=== PATIENT | female | born 1930 | race Caucasian/White ===

== ENCOUNTER 2019-02-06 07:52 | Emergency (ER) | payer MEDICARE ==
[~2019-02-06] VITALS: Ht 162.6 cm; Wt 72.6 kg
[~2019-02-06 07:52] MED LIST: ASP81CT PO; ASP81TEC PO; B12; CEPH500C PO; CITA10TA7 PO; CYCL1DRO OU; DIAZ5TAB3 PO; DILACOR PC; DILT180C82 PO; DILT300C PO; DILT300C49 PO; FENTANYL PATCH; FLC150T PO; FNT25TD TD; HYDR-3714 PO; IBUP-1780 PO; LISI20TA PO; LISI40TA PO; LVT.05T PO; METO25TA PO; MTP25TSR PO; NABU750T PO; PHEN100T26 PO; PRM25T PO; TRAM50TA2 PO; VITAMIN D
[2019-02-06] MEDS ORDERED: fentaNYL INJECTION 100 MCG/2 ML AMP IVP STA (08:15)
[2019-02-06 08:22] LABS: BILIRUBIN,URINE NEGATIVE (NEGATIVE); CLARITY,URINE SLIGHTLY CLOUDY; COLOR,URINE YELLOW; GLUCOSE, URINE (UA) NEGATIVE (NEGATIVE); KETONES,URINE 3+ (NEGATIVE); LEUKOCYTE ESTERASE ,URINE 1+ (NEGATIVE); NITRITE,URINE NEGATIVE (NEGATIVE); PH,URINE 6 (5-9); PROTEIN,URINE 2+ (NEGATIVE); UROBILINOGEN,URINE NORMAL (NORMAL)
[2019-02-06 08:24] LABS: BASOPHILS % (AUTO) 0 % (0-10); EOSINOPHILS # (AUTO) 0.2 10^3/uL (0.0-0.3); EOSINOPHILS % (AUTO) 2 % (0-10); HEMATOCRIT 42 % (35-52); HEMOGLOBIN 13.5 G/DL (11.5-16.0); LYMPHOCYTES # (AUTO) 1.9 X 10^3 (1.0-4.0); LYMPHOCYTES % (AUTO) 20 % (12-44); MEAN CORPUSCULAR HEMOGLOBIN 28 PG (25-34); MEAN CORPUSCULAR HGB CONC 32 G/DL (32-36); MEAN CORPUSCULAR VOLUME 86 FL (80-99); MEAN PLATELET VOLUME 10.2 FL (7.4-10.4); MONOCYTES # (AUTO) 1.1 X 10^3 (0.0-1.0); MONOCYTES % (AUTO) 12 % (0-12); NEUTROPHILS # (AUTO) 6.3 X 10^3 (1.8-7.8); NEUTROPHILS % (AUTO) 66 % (42-75); PLATELET COUNT 275 10^3/uL (130-400); RED CELL DISTRIBUTION WIDTH 14.6 % (10.0-14.5); WHITE BLOOD COUNT 9.6 10^3/uL (4.3-11.0)
--- NOTE | 2019-02-06 08:30 | NUR ---
SON IN ROOM TO SEE THE PT.
[2019-02-06 08:31] LABS: INR 1.1 (0.8-1.4); PROTHROMBIN TIME PATIENT 14.3 SEC (12.2-14.7)
--- NOTE | 2019-02-06 08:32 | ED Fall/Injury ---
General Chief Complaint: Trauma-Non Activation Stated Complaint: FALL Nursing Triage Note: ARRIVED VIA EMS FROM HOME. PT STATES SHE FELL AND HIT HER HEAD YESTERDAY AROUND 1600 AND LAYED ON THE FLOOR UNTIL APPX 6 WHEN SHE WAS ABLE TO GET UP AND MAKE IT BACK TO BED. CALLED EMS THIS AM FOR BACK, NECK, AND PELVIC PAIN AND UNABLE TO GET OUT OF BED. Source: patient Exam Limitations: no limitations History of Present Illness Date Seen by Provider: Feb 06, 2019 Time Seen by Provider: 07:59 Initial Comments Here by EMS with report of fall. She reports that she fell yesterday at about 3 PM. She reports lying on the floor until 5 or so and then was able to get back in bed. She is unable to get out of bed this morning so she called EMS. She reports hitting her head and complains of head and neck pain. Also complains of pelvic pain. States that she is actually hurting everywhere. Noted to have a low -grade fever and to be tachycardic. Arrives via EMS with c-collar in place. She is answering questions appropriately and moving all extremities. No obvious bruising reported. No bleeding reported. Denies chest pain or breathing problems. Occurred: yesterday Severity: moderate Injuries/Pain Location: head, neck Context: unknown Loss of Consciousness: no loss of consciousness Modifying Factors: Worse With Movement; Improves With Rest Associated Symptoms (Fall): No Chest Pain; Headache; No Nausea/Vomiting; Neck Pain; No Seizures, No Shortness of Air; Trouble Walking Allergies and Home Medications Allergies Coded Allergies: No Known Drug Allergies (Unverified , 07/23/12) Home Medications Aspirin 81 Mg Tabec, 81 MG PO DAILY, (Reported) Citalopram Hydrobromide 10 Mg Tablet, 10 MG PO DAILY, (Reported) Diltiazem HCl 180 Mg Capsule.er, 360 MG PO DAILY, (Reported) TAKE 2 (180MG) TABS Ibuprofen 800 Mg Tablet, 800 MG PO Q8H PRN for PAIN Prescribed by: CAMPBELL LEMUS on 11/19/15 1030 Levothyroxine Sodium 50 Mcg Tablet, 50 MCG PO DAILY, (Reported) Lisinopril 40 Mg Tablet, 40 MG PO DAILY, (Reported) Nabumetone 750 Mg Tablet, 750 MG PO BID, (Reported) Tramadol HCl 50 Mg Tablet, 50 MG PO Q4H PRN for PAIN Prescribed by: CAMPBELL LEMUS on 11/19/15 1030 Patient Home Medication List Home Medication List Reviewed: Yes Review of Systems Review of Systems Constitutional: see HPI; No chills, No fever Eyes: No Symptoms Reported Ears, Nose, Mouth, Throat: no symptoms reported Respiratory: No cough, No short of breath Cardiovascular: No chest pain; other (tachycardia noted) Gastrointestinal: No abdominal pain, No nausea, No vomiting Genitourinary: no symptoms reported Musculoskeletal: back pain, joint pain, muscle pain, neck pain Skin: No change in color, No lesions Psychiatric/Neurological: Anxiety, Headache, Weakness Past Mknebqk-Bzjwed-Mycvzk Hx Past Med/Social Hx: Reviewed Nursing Past Med/Soc Hx Patient Social History Alcohol Use: Denies Use Recreational Drug Use: No Smoking Status: Never a Smoker Recent Foreign Travel: No Contact w/Someone Who Travel: No Recent Infectious Disease Expo: No Immunizations Up To Date Date of Pneumonia Vaccine: Aug 28, 1999 Date of Influenza Vaccine: Aug 28, 2015 Past Medical History Surgeries: Yes Gallbladder, Hysterectomy, Orthopedic Respiratory: Yes Sleep Apnea Cardiac: Yes Hypertension, Irregular Heartbeat Gall Bladder Disease Musculoskeletal: Yes Arthritis, Chronic Back Pain Endocrine: Yes Hypothyroidsim Psychosocial: Yes Anxiety Family Medical History Patient reports no known family medical history. Physical Exam Vital Signs Vital Signs - First Documented 02/06/19 07:52 Temp 99.2 Pulse 109 Resp 18 B/P (MAP) 171/89 (116) Pulse Ox 93 O2 Delivery Room Air Capillary Refill : Less Than 3 Seconds Height, Weight, BMI Height: 5'4.00" Weight: 160lbs. oz. 72.165600mm; BMI Method:Estimated General Appearance: WD/WN, no apparent distress HEENT: PERRL/EOMI, pharynx normal Neck: No lymphadenopathy (R), No lymphadenopathy (L); tender midline, other (c- collar remains in place) Cardiovascular: no murmur, tachycardia Respiratory: lungs clear, normal breath sounds, no respiratory distress, no accessory muscle use Gastrointestinal: non tender, soft Back: normal inspection, no CVA tenderness, no vertebral tenderness Extremities: non-tender, normal inspection Neurologic/Psychiatric: alert, oriented x 3 Skin: normal color, warm/dry [place] Coma Score Best Eye Response: (4) Open Spontaneously Best Verbal Response: (5) Oriented Best Motor Response: (6) Obeys Commands Progress/Results/Core Measures Results/Orders Lab Results Laboratory Tests Test 02/06/19 07:55 02/06/19 08:06 02/06/19 08:13 Range/Units White Blood Count 9.6 4.3-11.0 10^3/uL Red Blood Count 4.88 4.35-5.85 10^6/uL Hemoglobin 13.5 11.5-16.0 G/DL Hematocrit 42 35-52 % Mean Corpuscular Volume 86 80-99 FL Mean Corpuscular Hemoglobin 28 25-34 PG Mean Corpuscular Hemoglobin Concent 32 32-36 G/DL Red Cell Distribution Width 14.6 H 10.0-14.5 % Platelet Count 275 130-400 10^3/uL Mean Platelet Volume 10.2 7.4-10.4 FL Neutrophils (%) (Auto) 66 42-75 % Lymphocytes (%) (Auto) 20 12-44 % Monocytes (%) (Auto) 12 0-12 % Eosinophils (%) (Auto) 2 0-10 % Basophils (%) (Auto) 0 0-10 % Neutrophils # (Auto) 6.3 1.8-7.8 X 10^3 Lymphocytes # (Auto) 1.9 1.0-4.0 X 10^3 Monocytes # (Auto) 1.1 H 0.0-1.0 X 10^3 Eosinophils # (Auto) 0.2 0.0-0.3 10^3/uL Basophils # (Auto) 0.0 0.0-0.1 10^3/uL Prothrombin Time 14.3 12.2-14.7 SEC INR Comment 1.1 0.8-1.4 Activated Partial Thromboplast Time 34 24-35 SEC Sodium Level 140 135-145 MMOL/L Potassium Level 3.4 L 3.6-5.0 MMOL/L Chloride Level 98 98-107 MMOL/L Carbon Dioxide Level 27 21-32 MMOL/L Anion Gap 15 H 5-14 MMOL/L Blood Urea Nitrogen 10 7-18 MG/DL Creatinine 0.64 0.60-1.30 MG/DL Estimat Glomerular Filtration Rate > 60 BUN/Creatinine Ratio 16 Glucose Level 124 H 70-105 MG/DL Calcium Level 9.5 8.5-10.1 MG/DL Corrected Calcium 9.6 8.5-10.1 MG/DL Total Bilirubin 0.6 0.1-1.0 MG/DL Aspartate Amino Transf (AST/SGOT) 21 5-34 U/L Alanine Aminotransferase (ALT/SGPT) 17 0-55 U/L Alkaline Phosphatase 74 40-136 U/L Total Creatine Kinase 78 29-168 U/L Troponin I < 0.028 <0.028 NG/ML C-Reactive Protein High Sensitivity 10.23 H 0.00-0.50 MG/DL Total Protein 8.0 6.4-8.2 GM/DL Albumin 3.9 3.2-4.5 GM/DL Urine Color YELLOW Urine Clarity SLIGHTLY CLOUDY Urine pH 6 5-9 Urine Specific [place] 1.020 1.016-1.022 Urine Protein 2+ H NEGATIVE Urine Glucose (UA) NEGATIVE NEGATIVE Urine Ketones 3+ H NEGATIVE Urine Nitrite NEGATIVE NEGATIVE Urine Bilirubin NEGATIVE NEGATIVE Urine Urobilinogen NORMAL NORMAL MG/DL Urine Leukocyte Esterase 1+ H NEGATIVE Urine RBC (Auto) 1+ H NEGATIVE Urine RBC RARE /HPF Urine WBC NONE /HPF Urine Squamous Epithelial Cells RARE /HPF Urine Crystals NONE /LPF Urine Bacteria NEGATIVE /HPF Urine Casts NONE /LPF Urine Mucus NEGATIVE /LPF Urine Culture Indicated NO Lactic Acid Level 0.74 0.50-2.00 MMOL/L Micro Results Microbiology 02/06/19 Influenza Types A,B Antigen ([facility]) - Final, Complete My Orders Orders - SALOME JOSE MD Ekg Tracing (02/06/19 08:02) Ct Head/Cervical Spine Wo (02/06/19 08:02) Chest 1 View, Ap/Pa Only (02/06/19 08:02) Pelvis (02/06/19 08:02) Cbc With Automated Diff (02/06/19 08:02) Comprehensive Metabolic Panel (02/06/19 08:02) Hs C Reactive Protein (02/06/19 08:02) Lactic Acid Analyzer (02/06/19 08:02) Protime With Inr (02/06/19 08:02) Partial Thromboplastin Time (02/06/19 08:02) Troponin I (02/06/19 08:02) Ua Culture If Indicated (02/06/19 08:02) Blood Culture (02/06/19 08:02) Influenza A And B Antigens (02/06/19 08:02) Catheter(Urinary) Insert & Ass 03,15 (02/06/19 08:02) Creatine Kinase (02/06/19 08:02) Fentanyl Injection (Sublimaze Injection (02/06/19 08:15) Ketorolac Injection (Toradol Injection) (02/06/19 09:15) Saline Lock/Iv-Start (02/06/19 10:35) Ns Iv 1000 Ml (Sodium Chloride 0.9%) (02/06/19 10:35) Vital Signs/I&O 02/06/19 07:52 Temp 99.2 Pulse 109 Resp 18 B/P (MAP) 171/89 (116) Pulse Ox 93 O2 Delivery Room Air Blood Pressure Mean: 116 Progress Progress Note : Progress Note Seen and evaluated. IV by EMS with normal saline 1 L bolus running which will be completed. Labs and UA ordered. Patient in c-collar. CT head and neck ordered. X-ray of chest and pelvis ordered. We will go ahead get for catheter to get urine and because of her stated weakness and pain. 0825: Son arrives and states that he has been out of town and she seems to do this every time he is out of town. Apparently the story changed several times as to what happened so he is unsure if she actually fell orifices in response to him being out of town. Fever was noted so we will check for illness related issues. Monitor patient. 0912: CT negative. C-collar removed. Toradol 30 mg IV. Monitor patient. 1235: Discharge leg due to critical patient in the emergency department. No acute findings. I did talk to her son. He will get her home. Discharged home with return precautions. Patient family verbalized understanding instructions and agreement with plan. Initial ECG Impression Date: Feb 06, 2019 Initial ECG Rate: 110 Comment Sinus rhythm with right bundle branch block. Left axis deviation. No evidence of ST elevation CT. Similar to 08/06/14. Interpreted by me. Diagnostic Imaging Diagonstic Imaging: CT Plain Films/CT/US/NM/MRI: c-spine, head Comments Draft Date of Exam:02/06/19 CT HEAD/CERVICAL SPINE WO PROCEDURE: CT head and CT cervical spine without contrast. TECHNIQUE: Multiple contiguous axial images were obtained through the brain and cervical spine without the use of intravenous contrast. Sagittal and coronal reformations through the cervical spine were then performed. INDICATION: Fall. Head injury. Neck pain. COMPARISON: CT head without contrast 07/23/2012. FINDINGS: CT head: Advanced generalized cerebral and cerebellar parenchymal volume loss. Advanced leukoaraiosis. No CT evidence of a territorial infarction. No intracranial hemorrhage, mass effect, hydrocephalus or extra-axial fluid collections. Intracranial vascular calcifications. The paranasal sinuses are clear. Scant fluid in the left mastoid. Osseous structures are intact. CT cervical spine: Straightening of the normal cervical lordosis. Grade 1 anterolisthesis of C2 on C3 and C6 on C7. Advanced degenerative changes at the atlantoaxial articulation. Vertebral body heights preserved. No fractures. Broad-based disc bulge and ligamentous hypertrophy appear result in at least moderate spinal canal narrowing at C5-C6. There is diffuse mild and moderate neural foraminal narrowing due to facet arthropathy and uncovertebral joint hypertrophy. Advanced atherosclerotic calcifications including the carotid bifurcations. IMPRESSION: 1. No acute intracranial or cervical spine CT findings. 2. Advanced generalized cerebral and cerebellar parenchymal volume loss and leukoaraiosis. 3. 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 These appear to result in at least moderate spinal canal narrowing at C5-C6. This could be better evaluated with CT myelogram or MRI if clinically warranted. Dictated on workstation # [id number] Dict: 02/06/19 0846 Trans: 02/06/19 0902 [facility] [id number] Interpreted by: YOHANA MCCORMACK MD Electronically signed by: [facility]: Xray Plain Films/CT/US/NM/MRI: chest Comments [facility] [place], [place] NAME[facility] [id number] PT STATUS: REG ER : 1930 PHYSICIAN: SALOME JOSE MD ADMIT DATE: 02/06/19/ER Draft Date of Exam:02/06/19 CHEST 1 VIEW, AP/PA ONLY INDICATION: Fall. FINDINGS: Comparison made with prior examination from 04/22/14. There's cardiomegaly. There is some venous congestion. There is no pleural effusion, pneumothorax or pneumonia. The mediastinum is unremarkable. IMPRESSION: Cardiomegaly and mild central pulmonary venous congestion. Dictated on workstation # [id number] Dict: 02/06/19 0900 Trans: 02/06/19 0905 [facility] [id number] Interpreted by: PABLO ALVAREZ MD Electronically signed by: [facility] Imaging: Xray Plain Films/CT/US/NM/MRI: pelvis Comments No acute findings. Hardware good position. Focused Exam Lactate Level 02/06/19 08:13: Lactic Acid Level 0.74 Lactic Acid Level Laboratory Tests Test 02/06/19 08:13 Lactic Acid Level 0.74 MMOL/L (0.50-2.00) Departure Impression Primary Impression: Fall Qualified Codes: W19.XXXA - Unspecified fall, initial encounter Additional Impressions: Headache Qualified Codes: R51 - Headache Hip pain, bilateral Disposition: 01 HOME, SELF-CARE Condition: Stable Departure-Patient Inst. Decision time for Depature: 12:42 Referrals: SANDRA MANLEY DO (PCP/Family) Primary Care Physician Patient Instructions: Minor Head Injury (DC), Preventing Falls Add. Discharge Instructions: All discharge instructions reviewed with patient and/or family. Voiced understanding. Drink plenty of fluids and eat a normal diet. Follow up with your Dr. in one to 2 days for recheck. Return for worse pain, fever, vomiting, weakness, breathing problems or other concerns as needed. SALOME JOSE MD Feb 06, 2019 08:32
[2019-02-06 08:37] LABS: ALANINE AMINOTRANSFERASE 17 U/L (0-55); ALBUMIN 3.9 GM/DL (3.2-4.5); ALKALINE PHOSPHATASE 74 U/L (40-136); BILIRUBIN,TOTAL 0.6 MG/DL (0.1-1.0); BUN/CREATININE RATIO 16; CALCIUM 9.5 MG/DL (8.5-10.1); CARBON DIOXIDE 27 MMOL/L (21-32); CHLORIDE 98 MMOL/L (98-107); CREATINE KINASE 78 U/L (29-168); CREATININE SERUM 0.64 MG/DL (0.60-1.30); GFR ESTIMATED > 60; GLUCOSE 124 MG/DL (70-105); POTASSIUM 3.4 MMOL/L (3.6-5.0); SODIUM 140 MMOL/L (135-145)
--- NOTE | 2019-02-06 08:40 | NUR ---
IN ROOM TALKING TO PT AT THIS TIME.
[2019-02-06 08:58] LABS: BACTERIA,URINE NEGATIVE /HPF; RBC,URINE RARE /HPF; SQUAMOUS EPITHELIAL CELL,UR RARE /HPF
--- NOTE | 2019-02-06 09:03 | Diagnostic Imaging Report ---
PROCEDURE: CT head and CT cervical spine without contrast. TECHNIQUE: Multiple contiguous axial images were obtained through the brain and cervical spine without the use of intravenous contrast. Sagittal and coronal reformations through the cervical spine were then performed. INDICATION: Fall. Head injury. Neck pain. COMPARISON: CT head without contrast 07/23/2012. FINDINGS: CT head: Advanced generalized cerebral and cerebellar parenchymal volume loss. Advanced leukoaraiosis. No CT evidence of a territorial infarction. No intracranial hemorrhage, mass effect, hydrocephalus or extra-axial fluid collections. Intracranial vascular calcifications. The paranasal sinuses are clear. Scant fluid in the left mastoid. Osseous structures are intact. CT cervical spine: Straightening of the normal cervical lordosis. Grade 1 anterolisthesis of C2 on C3 and C6 on C7. Advanced degenerative changes at the atlantoaxial articulation. Vertebral body heights preserved. No fractures. Broad-based disc bulge and ligamentous hypertrophy appear result in at least moderate spinal canal narrowing at C5-C6. There is diffuse mild and moderate neural foraminal narrowing due to facet arthropathy and uncovertebral joint hypertrophy. Advanced atherosclerotic calcifications including the carotid bifurcations. IMPRESSION: 1. No acute intracranial or cervical spine CT findings. 2. Advanced generalized cerebral and cerebellar parenchymal volume loss and leukoaraiosis. 3. 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 These appear to result in at least moderate spinal canal narrowing at C5-C6. This could be better evaluated with CT myelogram or MRI if clinically warranted. Dictated by: Dictated on workstation # [id number]
--- NOTE | 2019-02-06 09:06 | Diagnostic Imaging Report ---
INDICATION: Fall. FINDINGS: Comparison made with prior examination from 04/22/14. There's cardiomegaly. There is some venous congestion. There is no pleural effusion, pneumothorax or pneumonia. The mediastinum is unremarkable. IMPRESSION: Cardiomegaly and mild central pulmonary venous congestion. Dictated by: Dictated on workstation # [id number]
--- NOTE | 2019-02-06 09:14 | NUR ---
IN TALKING TO PT AND SON AT THIS TIME
[2019-02-06] MEDS ORDERED: KETOROLAC 30 MG/ML VIAL IVP STA (09:15)
--- NOTE | 2019-02-06 10:00 | NUR ---
CANDACE PATRICIA HELPING WITH CARE OF THIS PT DUE TO AN EMERGENT PT IN THE ER.
[2019-02-06] MEDS ORDERED: NS IV 1000 ML 1,000 ML IV SCH (10:35)
--- NOTE | 2019-02-06 11:55 | NUR ---
PT UPSET ABOUT NOT BEING ABLE TO LEAVE. PT NOTIFIED OF AN EMERGENT PT THAT WAS LIFE OR AND WAS BUSY. PT STATES SHE DOES NOT BELIEVE ME AND SHE IS NEVER COMING BACK.
[2019-02-06 12:52] VITALS: BP 78/85
--- NOTE | 2019-02-07 08:14 | Diagnostic Imaging Report ---
Indication: Pain after fall. Comparison: 04/19/2013. 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 No displaced fracture. No diastases of the symphysis pubis or SI joints. Degenerative disc disease in lumbar spine is noted. Impression: No acute fracture or traumatic diastases within the pelvis. Dictated by: Dictated on workstation # [id number]
== END 2019-02-06 12:58 | disposition home or self-care (01) ==
LOC: EDUNIT# 07:52 → ER 07:54
DX: R51 Headache (principal); M25.551 Pain in right hip; M25.552 Pain in left hip; G47.30 Sleep apnea, unspecified; I10 Essential (primary) hypertension; E03.9 Hypothyroidism, unspecified; F41.9 Anxiety disorder, unspecified; R40.2142 Coma scale, eyes open, spontaneous, at arrival to emergency department; R40.2252 Coma scale, best verbal response, oriented, at arrival to emergency department; R40.2362 Coma scale, best motor response, obeys commands, at arrival to emergency department; Z98.890 Other specified postprocedural states; Z79.82 Long term (current) use of aspirin; Z90.710 Acquired absence of both cervix and uterus; W01.198A Fall on same level from slipping, tripping and stumbling with subsequent striking against other object, initial encounter
CPT/HCPCS: 36415; 70450; 71045; 72125; 72170; 80053; 81000; 82550; 83605; 84484; 85025; 85610; 85730; 86141; 87040; 87804; 93005

== ENCOUNTER 2019-05-31 17:09 | Emergency (ER) | payer MEDICARE ==
[~2019-05-31] VITALS: Ht 162.6 cm; Wt 72.6 kg
[2019-05-31] MEDS ORDERED: ETOMIDATE IV SOLN 20 MG/10 ML VIAL IV ONE (17:11)
[2019-05-31] MEDS ORDERED: SUCCINYLCHOLINE INJ 100 MG/5 ML SYR INJ ONE (17:11)
--- OUTSIDE RECORDS SUMMARY | 2019-05-31 17:14 | XMS REPORT | Continuity of Care Document ---
Author Organization Unknown Address Unknown Allergies Active Description Code Type Severity Reaction Onset Reported/Identified Relationship to Patient Clinical Status Yes No Known Drug Allergies [id number] Drug Allergy Unknown N/A 07/23/2012 Medications There is no data. Problems Date Dx Coded Attending Type Code Diagnosis Diagnosed By 07/23/2012 Ot 401.9 HYPERTENSION NOS 07/23/2012 Ot 781.2 ABNORMALITY OF GAIT 07/23/2012 Ot 784.0 HEADACHE 07/23/2012 Ot V58.69 OTH MED,LT,CURRENT USE 04/11/2014 SANDRA MANLEY DO Ot 338.29 OTHER CHRONIC PAIN 04/11/2014 SANDRA MANLEY DO Ot 401.9 HYPERTENSION NOS 04/11/2014 SANDRA MANLEY DO Ot 426.4 RT BUNDLE BRANCH BLOCK 04/11/2014 SANDRA MANLEY DO Ot 427.89 CARDIAC DYSRHYTHMIAS NEC 04/11/2014 SANDRA MANLEY DO Ot 433.10 CAROTID ARTERY OCCLUSION W O CEREBRAL IN 04/11/2014 SANDRA MANLEY DO Ot 715.90 OSTEOARTHROS NOS-UNSPEC 04/11/2014 SANDRA MANLEY DO Ot 719.07 JOINT EFFUSION-ANKLE 04/11/2014 SANDRA MANLEY DO Ot 723.1 CERVICALGIA 04/11/2014 SANDRA MANLEY DO Ot 780.2 SYNCOPE AND COLLAPSE 04/11/2014 SANDRA MANLEY DO Ot 780.4 DIZZINESS AND GIDDINESS 04/22/2014 ASHWINI BENITEZ DO Ot 401.9 HYPERTENSION NOS 08/06/2014 BRIJESH IRVIN Ot 401.9 HYPERTENSION NOS 08/06/2014 BRIJESH IRVIN Ot 599.0 URIN TRACT INFECTION NOS 08/06/2014 BRIJESH IRVIN Ot V58.69 OTH MED,LT,CURRENT USE 11/12/2015 Ot 733.90 11/12/2015 Ot 401.9 11/12/2015 Ot 780.79 11/12/2015 Ot V58.66 11/12/2015 Ot V58.69 11/12/2015 SCARLET FITZPATRICK DO Latha Ot 729.5 11/12/2015 MANLEY DO SANDRA Slade Ot 715.96 11/12/2015 MANLEY DO SANDRA Slade Ot 737.30 11/12/2015 MANLEY DO SANDRA Slade Ot V43.64 11/12/2015 MANLEY SANDRA Slade Ot V43.65 11/12/2015 MANLEY SANDRA Slade Ot 729.5 11/12/2015 Ot 733.90 11/12/2015 Ot 401.9 11/12/2015 Ot 780.79 11/12/2015 Ot V58.66 11/12/2015 Ot V58.69 11/12/2015 SCARLET FITZPATRICK DO Latha Ot 729.5 11/12/2015 MANLEY SANDRA Slade Ot 715.96 11/12/2015 VINEET HOLT SANDRA Slade Ot 737.30 11/12/2015 MANLEYLEONARD HOLT SANDRA Slade Ot V43.64 11/12/2015 MANLEY DO SANDRA Slade Ot V43.65 11/12/2015 MANLEY DO SANDRA Slade Ot 729.5 11/19/2015 Ot 401.9 11/19/2015 Ot 780.79 11/19/2015 Ot V58.66 11/19/2015 Ot V58.69 11/19/2015 SCARLET FITZPATRICK DO Ot 729.5 11/19/2015 MANLEY DO, SANDRA Slade Ot 715.96 11/19/2015 VINEET HOLT SANDRA Slade Ot 737.30 11/19/2015 MANLEY DO SANDRA Slade Ot V43.64 11/19/2015 MANLEY DO SANDRA Slade Ot V43.65 11/19/2015 MANLEY DO, SANDRA Slade Ot 729.5 11/19/2015 JOANNA KELLY MD Ot G56.02 11/19/2015 JOANNA KELLY MD Ot Z01.818 11/19/2015 JOANNA KELLY MD Ot Z11.2 11/19/2015 JOANNA KELLY MD Ot E03.9 HYPOTHYROIDISM, UNSPECIFIED 11/19/2015 JOANNA KELLY MD Ot G56.02 CARPAL TUNNEL SYNDROME, LEFT UPPER LIMB 11/19/2015 JOANNA KELLY MD Ot I10 ESSENTIAL (PRIMARY) HYPERTENSION 11/19/2015 JOANNA KELLY MD Ot Z79.899 OTHER TECHNICAL DELIVERY MANAGER (CURRENT) DRUG THERAPY 09/23/2016 Ot 401.9 HYPERTENSION NOS 09/23/2016 Ot 780.79 OTH MALAISE FATIGUE 09/23/2016 Ot V58.66 LONG-TERM (CURRENT) USE OF ASPIRIN 09/23/2016 Ot V58.69 OTH MED,LT,CURRENT USE 09/23/2016 SCARLET FITZPATRICK DO Ot 729.5 PAIN IN LIMB 09/23/2016 SANDRA MANLEY DO Ot 715.96 OSTEOARTHROS NOS-L/LEG 09/23/2016 SANDRA MANLEY DO Ot 737.30 IDIOPATHIC SCOLIOSIS 09/23/2016 SANDRA MANLEY DO Ot V43.64 HIP JOINT REPLACEMENT STATUS 09/23/2016 SANDRA MANLEY DO Ot V43.65 KNEE JOINT REPLACEMENT STATUS 09/23/2016 SANDRA MANLEY DO Ot 729.5 PAIN IN LIMB 09/23/2016 JOANNA KELLY MD Ot G56.02 CARPAL TUNNEL SYNDROME, LEFT UPPER LIMB 09/23/2016 JOANNA KELYL MD Ot Z01.818 ENCOUNTER FOR OTHER PREPROCEDURAL EXAMIN 09/23/2016 JOANNA KELLY MD Ot Z11.2 ENCOUNTER FOR SCREENING FOR OTHER BACTER 09/23/2016 JOANNA DAVILA MD Ot R13.14 DYSPHAGIA, PHARYNGOESOPHAGEAL PHASE 09/23/2016 JOANNA DAVILA MD Ot R13.19 OTHER DYSPHAGIA 09/24/2016 JOANNA DAVILA MD Ot R13.14 DYSPHAGIA, PHARYNGOESOPHAGEAL PHASE 09/24/2016 JOANNA DAVILA MD Ot R13.19 OTHER DYSPHAGIA 10/15/2016 JOANNA DAVILA MD Ot R13.14 DYSPHAGIA, PHARYNGOESOPHAGEAL PHASE 10/15/2016 JOANNA DAVILA MD Ot R13.19 OTHER DYSPHAGIA 10/25/2016 JOANNA DAVILA MD Ot R13.14 DYSPHAGIA, PHARYNGOESOPHAGEAL PHASE 10/25/2016 JOANNA DAVILA MD Ot R13.19 OTHER DYSPHAGIA 02/06/2019 SALOME JOSE MD Ot E03.9 HYPOTHYROIDISM, UNSPECIFIED 02/06/2019 SALOME JOSE MD, Ot F41.9 ANXIETY DISORDER, UNSPECIFIED 02/06/2019 SALOME JOSE MD, Ot G47.30 SLEEP APNEA, UNSPECIFIED 02/06/2019 SALOME JOSE MD Ot I10 ESSENTIAL (PRIMARY) HYPERTENSION 02/06/2019 SALOME JOSE MD Ot M25.551 PAIN IN RIGHT HIP 02/06/2019 SALOME JOSE MD, Ot M25.552 PAIN IN LEFT HIP 02/06/2019 SALOME JOSE MD Ot R40.2142 COMA SCALE, EYES OPEN, SPONTANEOUS, EMR 02/06/2019 SALOME JOSE MD Ot R40.2252 COMA SCALE, BEST VERBAL RESPONSE, ORIENT 02/06/2019 SALOME JOSE MD, Ot R40.2362 COMA SCALE, BEST MOTOR RESPONSE, OBEYS C 02/06/2019 SALOME JOSE MD Ot R51 HEADACHE 02/06/2019 SALOME JOSE MD Ot W01.198A FALL SAME LEV FROM SLIP/TRIP W STRIKE AG 02/06/2019 SALOME JOSE MD Ot Z79.82 USP (CURRENT) USE OF ASPIRIN 02/06/2019 SALOME JOSE MD Ot Z90.710 ACQUIRED ABSENCE OF BOTH CERVIX AND UTER 02/06/2019 SALOME JOSE MD Ot Z98.890 OTHER SPECIFIED POSTPROCEDURAL STATES 02/08/2019 SALOME JOSE MD Ot E03.9 HYPOTHYROIDISM, UNSPECIFIED 02/08/2019 SALOME JOSE MD, Ot F41.9 ANXIETY DISORDER, UNSPECIFIED 02/08/2019 SALOME JOSE MD Ot G47.30 SLEEP APNEA, UNSPECIFIED 02/08/2019 SALOME JOSE MD Ot I10 ESSENTIAL (PRIMARY) HYPERTENSION 02/08/2019 SALOME JOSE MD Ot M25.551 PAIN IN RIGHT HIP 02/08/2019 SALOME JOSE MD Ot M25.552 PAIN IN LEFT HIP 02/08/2019 SALOME JOSE MD Ot R40.2142 COMA SCALE, EYES OPEN, SPONTANEOUS, EMR 02/08/2019 SALOME JOSE MD, Ot R40.2252 COMA SCALE, BEST VERBAL RESPONSE, ORIENT 02/08/2019 SALOME JOSE MD, Ot R40.2362 COMA SCALE, BEST MOTOR RESPONSE, OBEYS C 02/08/2019 SALOME JOSE MD, Ot R51 HEADACHE 02/08/2019 SALOME JOSE MD, Ot W01.198A FALL SAME LEV FROM SLIP/TRIP W STRIKE AG 02/08/2019 SALOME JOSE MD, Ot Z79.82 TECHNICAL DELIVERY MANAGER (CURRENT) USE OF ASPIRIN 02/08/2019 SALOME JOSE MD, Ot Z90.710 ACQUIRED ABSENCE OF BOTH CERVIX AND UTER 02/08/2019 SALOME JOSE MD, Ot Z98.890 OTHER SPECIFIED POSTPROCEDURAL STATES Procedures There is no data. Results Test Result Range Complete blood count (CBC) with automated white blood cell (WBC) differential - 02/06/19 07:55 Blood leukocytes automated count (number/volume) 9.6 10*3/uL 4.3-11.0 Blood erythrocytes automated count (number/volume) 4.88 10*6/uL 4.35-5.85 Venous blood hemoglobin measurement (mass/volume) 13.5 g/dL 11.5-16.0 Blood hematocrit (volume fraction) 42 % 35-52 Automated erythrocyte mean corpuscular volume 86 [foz_us] 80-99 Automated erythrocyte mean corpuscular hemoglobin (mass per erythrocyte) 28 pg 25-34 Automated erythrocyte mean corpuscular hemoglobin concentration measurement (mass/volume) 32 g/dL 32-36 Automated erythrocyte distribution width ratio 14.6 % 10.0- 14.5 Automated blood platelet count (count/volume) 275 10*3/uL 130-400 Automated blood platelet mean volume measurement 10.2 [foz_us] 7.4-10.4 Automated blood neutrophils/100 leukocytes 66 % 42-75 Automated blood lymphocytes/100 leukocytes 20 % 12-44 Blood monocytes/100 leukocytes 12 % 0-12 Automated blood eosinophils/100 leukocytes 2 % 0-10 Automated blood basophils/100 leukocytes 0 % 0-10 Blood neutrophils automated count (number/volume) 6.3 10*3 1.8-7.8 Blood lymphocytes automated count (number/volume) 1.9 10*3 1.0-4.0 Blood monocytes automated count (number/volume) 1.1 10*3 0.0- 1.0 Automated eosinophil count 0.2 10*3/uL 0.0-0.3 Automated blood basophil count (count/volume) 0.0 10*3/uL 0.0-0.1 PT panel in platelet poor plasma by coagulation assay - 02/06/19 07:55 Prothrombin time (PT) in platelet poor plasma by coagulation assay 14.3 s 12.2-14.7 INR in platelet poor plasma or blood by coagulation assay 1.1 0.8-1.4 Activated partial thromboplastin time (aPTT) in platelet poor plasma bycoagulation assay - 02/06/19 07:55 Activated partial thromboplastin time (aPTT) in platelet poor plasma bycoagulation assay 34 s 24-35 Comprehensive metabolic panel - 02/06/19 07:55 Serum or plasma sodium measurement (moles/volume) 140 mmol/L 135-145 Serum or plasma potassium measurement (moles/volume) 3.4 mmol/L 3.6-5.0 Serum or plasma chloride measurement (moles/volume) 98 mmol/L 98-107 Carbon dioxide 27 mmol/L 21-32 Serum or plasma anion gap determination (moles/volume) 15 mmol/L 5-14 Serum or plasma urea nitrogen measurement (mass/volume) 10 mg/dL 7-18 Serum or plasma creatinine measurement (mass/volume) 0.64 mg/dL 0.60-1.30 Serum or plasma urea nitrogen/creatinine mass ratio 16 NRG Serum or plasma creatinine measurement with calculation of estimated glomerular filtration rate > NRG Serum or plasma glucose measurement (mass/volume) 124 mg/dL 70-105 Serum or plasma calcium measurement (mass/volume) 9.5 mg/dL 8.5-10.1 Serum or plasma total bilirubin measurement (mass/volume) 0.6 mg/dL 0.1-1.0 Serum or plasma alkaline phosphatase measurement (enzymatic activity/volume) 74 U/L 40-136 Serum or plasma aspartate aminotransferase measurement (enzymatic activity/volume) 21 U/L 5-34 Serum or plasma alanine aminotransferase measurement (enzymatic activity/volume) 17 U/L 0-55 Serum or plasma protein measurement (mass/volume) 8.0 g/dL 6.4-8.2 Serum or plasma albumin measurement (mass/volume) 3.9 g/dL 3.2-4.5 CALCIUM CORRECTED 9.6 mg/dL 8.5-10.1 Serum or plasma creatine kinase measurement (enzymatic activity/volume) - 02/06/19 07:55 Serum or plasma creatine kinase measurement (enzymatic activity/volume) 78 U/L 29-168 Serum or plasma troponin i.cardiac measurement (mass/volume) - 02/06/19 07:55 Serum or plasma troponin i.cardiac measurement (mass/volume) < ng/mL <0.028 Serum or plasma C reactive protein measurement (mass/volume) - 02/06/19 07:55 Serum or plasma C reactive protein measurement (mass/volume) 10.23 mg/dL 0.00-0.50 Influenza virus A and B antigen detection - 02/06/19 08:06 FLU RESULT NEGATIVE FOR INFLUENZA A AND B ANTIGENS BY IA NRG Complete urinalysis with reflex to culture - 02/06/19 08:06 Urine color determination YELLOW NRG Urine clarity determination SLIGHTLY CLOUDY NRG Urine pH measurement by test strip 6 5-9 Specific gravity of urine by test strip 1.020 1.016-1.022 Urine protein assay by test strip, semi-quantitative 2+ NEGATIVE Urine glucose detection by automated test strip NEGATIVE NEGATIVE Erythrocytes detection in urine sediment by light microscopy 1+ NEGATIVE Urine ketones detection by automated test strip 3+ NEGATIVE Urine nitrite detection by test strip NEGATIVE NEGATIVE Urine total bilirubin detection by test strip NEGATIVE NEGATIVE Urine urobilinogen measurement by automated test strip (mass/volume) NORMAL NORMAL Urine leukocyte esterase detection by dipstick 1+ NEGATIVE Automated urine sediment erythrocyte count by microscopy (number/high power field) RARE NRG Automated urine sediment leukocyte count by microscopy (number/high power field) NONE NRG Bacteria detection in urine sediment by light microscopy NEGATIVE NRG Squamous epithelial cells detection in urine sediment by light microscopy RARE NRG Crystals detection in urine sediment by light microscopy NONE NRG Casts detection in urine sediment by light microscopy NONE NRG Mucus detection in urine sediment by light microscopy NEGATIVE NRG Complete urinalysis with reflex to culture NO NRG Blood lactic acid measurement (moles/volume) - 02/06/19 08:13 Blood lactic acid measurement (moles/volume) 0.74 mmol/L 0.50- 2.00 Bacterial blood culture - 02/06/19 08:13 Bacterial blood culture NG NRG Bacterial blood culture - 02/06/19 08:48 Bacterial blood culture NG NRG Encounters ACCT No. Visit Date/Time Discharge Status Pt. Type Provider Facility Loc./Unit Complaint [id number] 02/06/2019 07:54:00 02/06/2019 12:58:00 DIS Emergency SALOME JOSE MD [facility] ER FALL [id number] 01/24/2019 15:53:00 01/24/2019 23:59:59 CLS Preadmit SANDRA MANLEY DO [facility] RAD MAJOR DEPRESSIVE DISORDER [id number] 09/23/2016 11:29:00 09/23/2016 23:59:59 CLS Outpatient JOANNA DAVILA MD [facility] RAD CHRONIC DYSPHAGIA, R13.14, R13.19 [id number] 11/19/2015 07:11:00 11/19/2015 11:05:00 DIS Outpatient JOANNA KELLY MD [facility] SDC LT.CARPEL TUNNEL SYNDROME [id number] 11/12/2015 10:41:00 11/12/2015 23:59:59 CLS Outpatient JOANNA KELLY MD [facility] PREOP LEFT CARPEL TUNNEL [id number] 08/06/2014 12:10:00 08/06/2014 14:33:00 DIS Emergency BRIJESH IRVIN [facility] ER HIGH BP [id number] 04/22/2014 15:13:00 04/22/2014 17:13:00 DIS Emergency ASHWINI BENITEZ DO [facility] ER ELEVATED BLOOD PRESSURE [id number] 04/10/2014 11:50:00 04/11/2014 15:15:00 DIS Inpatient SANDRA MANLEY DO [facility] CSD CP,HTN [id number] 03/18/2014 16:37:00 03/18/2014 23:59:59 CLS Outpatient SANDRA MANLEY DO [facility] RAD PAIN IN DORSOL FOOT [id number] 04/19/2013 12:07:00 04/19/2013 23:59:59 CLS Outpatient SANDRA MANLEY DO [facility] RAD OA [id number] 04/12/2013 13:54:00 04/12/2013 23:59:59 [facility] Outpatient SCARLET FITZPATRICK DO [facility] RAD LEG PAIN, CANT BEND LEG [id number] 11/12/2015 10:39:00 Document Registration [id number] 07/23/2012 15:58:00 Document Registration [id number] 05/06/2011 06:15:00 Document Registration [id number] 05/28/2010 10:27:00 Document Registration
[2019-05-31] MEDS ORDERED: PROPOFOL DRIP (ICU) 100 ML IV ONE (17:21)
[2019-05-31 17:28] LABS: BASOPHILS % (AUTO) 0 % (0-10); EOSINOPHILS % (AUTO) 0 % (0-10); HEMATOCRIT 39 % (35-52); HEMOGLOBIN 11.8 G/DL (11.5-16.0); LYMPHOCYTES # (AUTO) 0.7 X 10^3 (1.0-4.0); LYMPHOCYTES % (AUTO) 6 % (12-44); MEAN CORPUSCULAR HEMOGLOBIN 25 PG (25-34); MEAN CORPUSCULAR HGB CONC 31 G/DL (32-36); MEAN CORPUSCULAR VOLUME 80 FL (80-99); MONOCYTES % (AUTO) 7 % (0-12); NEUTROPHILS # (AUTO) 11.2 X 10^3 (1.8-7.8); NEUTROPHILS % (AUTO) 87 % (42-75); PLATELET COUNT 332 10^3/uL (130-400); RED CELL DISTRIBUTION WIDTH 14.9 % (10.0-14.5); WHITE BLOOD COUNT 12.9 10^3/uL (4.3-11.0)
[2019-05-31 17:29] LABS: CLARITY,URINE VERY CLOUDY; COLOR,URINE YELLOW; GLUCOSE, URINE (UA) NEGATIVE (NEGATIVE); KETONES,URINE 1+ (NEGATIVE); LEUKOCYTE ESTERASE ,URINE 2+ (NEGATIVE); NITRITE,URINE NEGATIVE (NEGATIVE); PH,URINE 5 (5-9); PROTEIN,URINE 2+ (NEGATIVE); UROBILINOGEN,URINE NORMAL (NORMAL)
--- NOTE | 2019-05-31 17:30 | NUR ---
1714- STROKE PAGED 1715- PT PLACED ON BIPAP 1725- BIPAP REMOVED, PT BAGGED, PREP FOR INTUBATION; BP 131/70, HR 121, 93% BVM 1727- 20 MG ETOMIDATE ADMINISTERED 1727- 100 MG SUCCS ADMINISTERED 1728- FIRST ATTEMPT AT INTUBATION, UNSUCCESSFUL 1729- 2ND ATTEMPT AT INTUBATION, SUCCESSFUL 1730- 8.0 ETT PLACED, 25 @ THE LIP. POSITIVE COLOR CHANGE, BILATERAL BREATH SOUNDS AUSCULTATED 1731- PROPOFOL DRIP STARTED @ 15 MCG/KG/MIN 1733- 18FR OG PLACED 1735- PT TO CT
[2019-05-31 17:39] LABS: AMORPHOUS SEDIMENT,UR MOD AMOR URATES /LPF; BACTERIA,URINE NEGATIVE /HPF; BILIRUBIN,URINE 1+ (NEGATIVE); RBC,URINE 0-2 /HPF
[2019-05-31 17:45] LABS: ALBUMIN 3.2 GM/DL (3.2-4.5); BILIRUBIN,TOTAL 0.5 MG/DL (0.1-1.0); CALCIUM 8.6 MG/DL (8.5-10.1); CREATININE SERUM 0.9 MG/DL (0.60-1.30); POTASSIUM 4.4 MMOL/L (3.6-5.0); TOTAL PROTEIN 7.2 GM/DL (6.4-8.2)
[2019-05-31 17:51] LABS: FIBRIN DEGRADATION PRODUCTS 9.12 UG/ML (0.00-0.49); INR 1.2 (0.8-1.4)
--- NOTE | 2019-05-31 17:54 | Diagnostic Imaging Report ---
INDICATION: Unresponsive. TIME OF EXAM: 5:23 p.m. COMPARISON: Correlation made with prior study from 02/06/2019. EXAMINATION: Single view of the chest was obtained. FINDINGS: Extensive infiltrate has developed throughout the right lung. There is consolidation in the right base with obscuration of the right heart border suggestive of right middle lobe consolidation. Left lung appears clear. No pneumothorax or effusion is seen. IMPRESSION: Extensive right side pulmonary infiltrate. Dictated by: Dictated on workstation # [id number]
[2019-05-31 17:56] LABS: BAND NEUTROPHILS 33 %; BASOPHILS % (MANUAL) 0 %; EOSINOPHILS % (MANUAL) 0 %; LYMPHOCYTES % (MANUAL) 6 %; METAMYELOCYTES % 6 %; MONOCYTES % (MANUAL) 4 %; NEUTROPHILS % (MANUAL) 51 %; RBC MORPH NORMAL
[2019-05-31] MEDS ORDERED: NS IV 1000 ML 1,000 ML IV SCH ×2 (18:00→20:42)
[2019-05-31] MEDS ORDERED: PROPOFOL DRIP (ICU) 100 ML IV SCH (18:00)
--- NOTE | 2019-05-31 18:02 | Diagnostic Imaging Report ---
PROCEDURE: CT head without contrast r/o stroke. TECHNIQUE: Multiple contiguous axial images were obtained through the brain without the use of intravenous contrast. Auto Exposure Controls were utilized during the CT exam to meet ALARA standards for radiation dose reduction. INDICATION: Unresponsive. COMPARISON: Correlation is made with head CT from 02/06/2019. FINDINGS: Ventricular size is stable. There is moderate periventricular hypodensity noted consistent with senescent change. No sulcal effacement or midline shift is identified. No acute intra-axial or extra-axial hemorrhage is seen. IMPRESSION: Chronic and senescent changes. No acute intracranial process is detected. Dictated by: Dictated on workstation # [id number]
--- NOTE | 2019-05-31 18:03 | Diagnostic Imaging Report ---
PROCEDURE: CT cervical spine without contrast. TECHNIQUE: Multiple contiguous axial images were obtained through the cervical spine without the use of intravenous contrast. Sagittal and coronal reformations were then performed. Auto Exposure Controls were utilized during the CT exam to meet ALARA standards for radiation dose reduction. INDICATION: Unresponsive. FINDINGS: There is minimal anterolisthesis of C6 on C7. Vertebral body heights are maintained. No fractures are identified. There is multilevel facet arthropathy. The prevertebral tissues are obscured by the ET tube and NG tube. IMPRESSION: Cervical spondylosis. No acute bony abnormality is detected. Dictated by: Dictated on workstation # [id number]
--- NOTE | 2019-05-31 18:19 | NUR ---
ETT PULLED BACK TO 23 @ THE LIP
--- NOTE | 2019-05-31 18:30 | Diagnostic Imaging Report ---
INDICATION: Possible stroke. Patient is unresponsive. EXAMINATION: CT perfusion protocol was performed. FINDINGS: CBF, CBV and Tmax calculations were performed. No mismatch is observed. There is no evidence of ischemic core or penumbra. IMPRESSION: Unremarkable CT perfusion study. Dictated by: Dictated on workstation # [id number]
--- NOTE | 2019-05-31 18:36 | Diagnostic Imaging Report ---
PROCEDURE: CT angiography of the head and CT angiography of the neck with and without contrast. TECHNIQUE: Contiguous noncontrast images were obtained from the skull base through the vertex. After intravenous contrast administration, helical CT angiography of the neck was performed. Source data was reformatted into multiple MIP projections. Delayed post contrast acquisition was also obtained. Auto Exposure Controls were utilized during the CT exam to meet ALARA standards for radiation dose reduction. INDICATION: Unresponsive and possible stroke. FINDINGS: Delayed postcontrast imaging of the brain is without evidence of an abnormal enhancing lesion. CT angiographic portion of the study demonstrates the patient to be intubated. There does appear to be pleural fluid and consolidation in the right lung. Common carotid arteries appear to be patent. Internal carotid arteries appear to be patent. There is a moderate amount of calcified plaque in the carotid siphons, bilaterally. Bilateral middle cerebral arteries are widely patent. No filling defect or thromboembolism is seen. The paired anterior cerebral arteries appear patent. The basilar is patent. Bilateral posterior cerebral arteries are patent. The vertebral arteries are patent and appear to be codominant. IMPRESSION: Atherosclerotic changes. No thromboembolism or large branch occlusion is identified. Dictated by: Dictated on workstation # [id number]
--- NOTE | 2019-05-31 18:39 | Diagnostic Imaging Report ---
PROCEDURE: CT chest without contrast. TECHNIQUE: Multiple contiguous axial images were obtained through the chest without the use of intravenous contrast. Auto Exposure Controls were utilized during the CT exam to meet ALARA standards for radiation dose reduction. INDICATION: Pulmonary infiltrates. COMPARISON: No prior study is available for comparison. FINDINGS: ET tube appears to have tip just above the adonis. NG tube passes into the stomach. There is extensive consolidation with air bronchograms throughout the right upper and right lower lobe. No significant aeration of the right lower lobe is seen. There is a mildly aerated right upper lobe. There is also patchy airspace infiltrates in the left upper lobe and left lower lobe but to a much lesser degree than the right. Small right-sided effusion is also present. No pericardial or left-sided effusion is seen. Upper abdomen is unremarkable. IMPRESSION: Extensive consolidation with air bronchograms throughout the right lung consistent with pneumonia. There are some patchy left-sided infiltrates present as well. Dictated by: Dictated on workstation # [id number]
[2019-05-31] MEDS ORDERED: NS (IVPB) 100 ML ONE (18:40)
[2019-05-31] MEDS ORDERED: PIPERACILLIN/TAZO 4.5 GM VIAL (ZOSYN) IV ONE (18:40)
[2019-05-31] MEDS ORDERED: PIPERACILLIN/TAZOBACTAM (BULK) 4.5 GM in NS (IVPB) 100 ML IV ONE (18:45)
[2019-05-31] MEDS ORDERED: HEParin DRIP 25000 UNIT/500ML 500 ML IV ONE (19:43)
[2019-05-31] MEDS ORDERED: HEParin 1000 UNIT/ML (10ML VIAL) FOR BOLUS IV ONE (19:45)
--- NOTE | 2019-05-31 19:53 | ED Neurological Problem ---
General Chief Complaint: Unresponsive Stated Complaint: UNRESPONSIVE Nursing Triage Note: PT BROUGHT IN BY [facility] FROM HOME AFTER PT HAD BEEN FOUND UNRESPONSIVE. LKWT 1930 LAST NIGHT. PT WAS FOUND WITH FLUID AND BLOOD IN HER MOUTH. PT 83% ON 15L NRB ON ARRIVAL. Nursing Sepsis Screen: No Definite Risk Source: family, EMS Exam Limitations: physical impairment History of Present Illness Date Seen by Provider: May 31, 2019 Time Seen by Provider: 17:10 Initial Comments This 89-year-old woman presents to the emergency room via EMS in an unresponsive state. She is also hypoxic. She was found at home in her bed lying on her right side by a family friend who stop by to check on her. Patient was unable to speak or respond appropriately. She did recheck and pull her friend toward her. EMS was activated. She was found to be hypoxic with an oxygen saturation of 83 percent on 15 L nonrebreather. Patient also was thought to have a right- sided facial droop and right-sided arm weakness. She had fluid in and around her mouth, possibly emesis. Patient had spontaneous movements but no meaningful movements or speech on arrival. She was immediately started on BiPAP therapy and her son was contacted to determine resuscitation wishes. Family friends are present with patient. Allergies and Home Medications Allergies Coded Allergies: No Known Drug Allergies (Unverified , 07/23/12) Home Medications Aspirin 81 Mg Tabec, 81 MG PO DAILY, (Reported) Citalopram Hydrobromide 10 Mg Tablet, 10 MG PO DAILY, (Reported) Diltiazem HCl 180 Mg Capsule.er, 360 MG PO DAILY, (Reported) TAKE 2 (180MG) TABS Ibuprofen 800 Mg Tablet, 800 MG PO Q8H PRN for PAIN Prescribed by: CAMPBELL LEMUS on 11/19/15 1030 Levothyroxine Sodium 50 Mcg Tablet, 50 MCG PO DAILY, (Reported) Lisinopril 40 Mg Tablet, 40 MG PO DAILY, (Reported) Nabumetone 750 Mg Tablet, 750 MG PO BID, (Reported) Tramadol HCl 50 Mg Tablet, 50 MG PO Q4H PRN for PAIN Prescribed by: CAMPBELL LEMUS on 11/19/15 1030 Patient Home Medication List Home Medication List Reviewed: Yes Review of Systems Review of Systems Constitutional: see HPI Eyes: No Symptoms Reported Ears, Nose, Mouth, Throat: no symptoms reported Respiratory: see HPI Cardiovascular: no symptoms reported Gastrointestinal: see HPI Genitourinary: no symptoms reported : No Musculoskeletal: no symptoms reported Skin: no symptoms reported Psychiatric/Neurological: See HPI Endocrine: No Symptoms Reported Hematologic/Lymphatic: No Symptoms Reported Past Kvgfhlc-Bstzwe-Pltkzx Hx Patient Social History Alcohol Use: Denies Use Recreational Drug Use: No Smoking Status: Unknown if Ever Smoked Recent Foreign Travel: No Contact w/Someone Who Travel: No Recent Infectious Disease Expo: No Immunizations Up To Date Tetanus Booster (TDap): Unknown PED Vaccines UTD: Yes Date of Pneumonia Vaccine: Aug 28, 1999 Date of Influenza Vaccine: Aug 28, 2015 Past Medical History Surgeries: Yes Gallbladder, Hysterectomy, Orthopedic Respiratory: Yes Sleep Apnea Cardiac: Yes Hypertension, Irregular Heartbeat Neurological: No Gastrointestinal: No Gall Bladder Disease Musculoskeletal: Yes Arthritis, Chronic Back Pain Endocrine: Yes Hypothyroidsim, Diabetes, Non-Insulin dep Cancer: No Psychosocial: Yes Anxiety Integumentary: No Blood Disorders: No Family Medical History Patient reports no known family medical history. Physical Exam Vital Signs Vital Signs - First Documented 05/31/19 17:10 Temp 99.6 Pulse 128 Resp 21 B/P (MAP) 124/64 (84) Pulse Ox 85 O2 Delivery Non Rebreather O2 Flow Rate 15.00 Capillary Refill : Less Than 3 Seconds Height, Weight, BMI Height: 5'4.00" Weight: 160lbs. oz. 72.384476bm; 27.45 BMI Method:Estimated General Appearance: WD/WN, other (not responsive) HEENT: PERRL/EOMI, normal ENT inspection Neck: normal inspection Respiratory: no respiratory distress, no accessory muscle use, crackles Cardiovascular: regular rate, rhythm, no edema, systolic murmur Gastrointestinal: normal bowel sounds, soft Extremities: normal inspection, no pedal edema Neurologic/Psychiatric: other (some spontaneous movement. Right arm seemed to be flaccid and there appeared to be some right sided facial droop. Patient does have spontaneous movement but no meaningful speech or meaningful movement.) Crainal Nerves: PERRL Skin: normal color, warm/dry Focused Exam Lactate Level 05/31/19 19:05: Lactic Acid Level 5.04*H Lactic Acid Level Laboratory Tests Test 05/31/19 19:05 Lactic Acid Level 5.04 MMOL/L (0.50-2.00) *H Procedures/Interventions Date of ETT Placement: May 31, 2019 Time of ETT Placement: 1730 Tube Size: 8.00 Progress/Results/Core Measures Results/Orders Lab Results Laboratory Tests Test 05/31/19 17:12 05/31/19 17:16 05/31/19 19:05 Range/Units White Blood Count 12.9 H 4.3-11.0 10^3/uL Red Blood Count 4.82 4.35-5.85 10^6/uL Hemoglobin 11.8 11.5-16.0 G/DL Hematocrit 39 35-52 % Mean Corpuscular Volume 80 80-99 FL Mean Corpuscular Hemoglobin 25 25-34 PG Mean Corpuscular Hemoglobin Concent 31 L 32-36 G/DL Red Cell Distribution Width 14.9 H 10.0-14.5 % Platelet Count 332 130-400 10^3/uL Mean Platelet Volume 9.0 7.4-10.4 FL Neutrophils (%) (Auto) 87 H 42-75 % Lymphocytes (%) (Auto) 6 L 12-44 % Monocytes (%) (Auto) 7 0-12 % Eosinophils (%) (Auto) 0 0-10 % Basophils (%) (Auto) 0 0-10 % Neutrophils # (Auto) 11.2 H 1.8-7.8 X 10^3 Lymphocytes # (Auto) 0.7 L 1.0-4.0 X 10^3 Monocytes # (Auto) 1.0 0.0-1.0 X 10^3 Eosinophils # (Auto) 0.0 0.0-0.3 10^3/uL Basophils # (Auto) 0.0 0.0-0.1 10^3/uL Neutrophils % (Manual) 51 % Lymphocytes % (Manual) 6 % Monocytes % (Manual) 4 % Eosinophils % (Manual) 0 % Basophils % (Manual) 0 % Metamyelocytes % 6 % Band Neutrophils 33 % Blood Morphology Comment NORMAL Prothrombin Time 16.0 H 12.2-14.7 SEC INR Comment 1.2 0.8-1.4 Activated Partial Thromboplast Time 31 24-35 SEC D-Dimer 9.12 H 0.00-0.49 UG/ML Sodium Level 138 135-145 MMOL/L Potassium Level 4.4 3.6-5.0 MMOL/L Chloride Level 102 98-107 MMOL/L Carbon Dioxide Level 23 21-32 MMOL/L Anion Gap 13 5-14 MMOL/L Blood Urea Nitrogen 17 7-18 MG/DL Creatinine 0.90 0.60-1.30 MG/DL Estimat Glomerular Filtration Rate 59 BUN/Creatinine Ratio 19 Glucose Level 208 H 70-105 MG/DL Calcium Level 8.6 8.5-10.1 MG/DL Corrected Calcium 9.2 8.5-10.1 MG/DL Total Bilirubin 0.5 0.1-1.0 MG/DL Aspartate Amino Transf (AST/SGOT) 40 H 5-34 U/L Alanine Aminotransferase (ALT/SGPT) 8 0-55 U/L Alkaline Phosphatase 74 40-136 U/L Troponin I 0.143 H <0.028 NG/ML Total Protein 7.2 6.4-8.2 GM/DL Albumin 3.2 3.2-4.5 GM/DL Urine Color YELLOW Urine Clarity VERY CLOUDY H Urine pH 5 5-9 Urine Specific [place] 1.025 H 1.016-1.022 Urine Protein 2+ H NEGATIVE Urine Glucose (UA) NEGATIVE NEGATIVE Urine Ketones 1+ H NEGATIVE Urine Nitrite NEGATIVE NEGATIVE Urine Bilirubin 1+ H NEGATIVE Urine Urobilinogen NORMAL NORMAL MG/DL Urine Leukocyte Esterase 2+ H NEGATIVE Urine RBC (Auto) 3+ H NEGATIVE Urine RBC 0-2 /HPF Urine WBC 2-5 /HPF Urine Squamous Epithelial Cells 5-10 /HPF Urine Crystals NONE /LPF Urine Amorphous Sediment MOD OLAMIDE URATES H /LPF Urine Bacteria NEGATIVE /HPF Urine Casts NONE /LPF Urine Mucus NEGATIVE /LPF Urine Culture Indicated NO Lactic Acid Level 5.04 *H 0.50-2.00 MMOL/L My Orders Orders - HERMES FORD MD Cbc With Automated Diff (05/31/19 17:14) Protime With Inr (05/31/19 17:14) Partial Thromboplastin Time (05/31/19 17:14) Comprehensive Metabolic Panel (05/31/19 17:14) Fibrin Degradation Products (05/31/19 17:14) Troponin I (05/31/19 17:14) Ua Culture If Indicated (05/31/19 17:14) Chest 1 View, Ap/Pa Only (05/31/19 17:14) Catheter(Urinary) Insert & Ass 03,15 (05/31/19 17:14) Ekg Tracing (05/31/19 17:14) Nothing By Mouth (06/01/19 Breakfast) Accucheck Stat ONCE (05/31/19 17:14) Ed Iv/Invasive Line Start (05/31/19 17:14) Ed Iv/Invasive Line Start (05/31/19 17:14) Vital Signs Stroke Patient Q15M (05/31/19 17:14) Ct Head Wo-R/O Stroke (05/31/19 17:14) O2 (05/31/19 17:14) Intake & Output 06,14,22 (05/31/19 17:14) Monitor-Rhythm Ecg Trace Only (05/31/19 17:14) Dysphagia Screening Tool (05/31/19 17:14) Post Thrombolytic Adminstratio (05/31/19 17:14) Lipid Panel (06/01/19 06:00) Ct Angio Head/Neck (05/31/19 17:15) Ct Head Perfusion W/ Contrast (05/31/19 17:15) Propofol Drip (Icu) (Diprivan Drip (Icu) (05/31/19 17:21) Manual Differential (05/31/19 17:12) Ct Cervical Spine Wo (05/31/19 17:42) Propofol Drip (Icu) (Diprivan Drip (Icu) (05/31/19 18:00) Ns Iv 1000 Ml (Sodium Chloride 0.9%) (05/31/19 18:00) Ct Chest Wo (05/31/19 ) Piperacillin/Tazobactam (Bulk) (Zosyn In (05/31/19 18:45) Ns (Ivpb) (Sodium Chloride 0.9% Ivpb Bag (05/31/19 18:40) Piperacillin Sodium/Tazobactam (Zosyn Vi (05/31/19 18:40) Blood Culture (05/31/19 18:50) Lactic Acid Analyzer (05/31/19 18:50) Heparin Drip Full (05/31/19 19:43) Heparin Bolus Full 80 Units/Kg (05/31/19 19:45) Medications Given in ED Current Medications Medications Dose Ordered Sig/Alexandra Route Start Time Stop Time Status Last Admin Dose Admin Piperacillin Sod/ Tazobactam Sod 4.5 gm/Sodium Chloride 120 ml @ 240 mls/hr ONCE ONCE IV 05/31/19 18:45 05/31/19 19:14 DC 05/31/19 18:52 240 MLS/HR Vital Signs/I&O 05/31/19 05/31/19 05/31/19 17:10 17:10 17:31 Temp 99.6 99.6 Pulse 128 115 Resp 21 15 B/P (MAP) 124/64 (84) 158/68 Pulse Ox 85 85 95 O2 Delivery Non Rebreather Non Rebreather Mechanical Ventilator O2 Flow Rate 15.00 15.00 Blood Pressure Mean: 98 Initial ECG Impression Date: May 31, 2019 Initial ECG Impression Time: 17:13 Initial ECG Rate: 126 Initial ECG Rhythm: S.Tach Comment Sinus tachycardia with no overt ST elevation or depression. Automated read states right bundle branch block. Diagnostic Imaging Diagonstic Imaging: CT Plain Films/CT/US/NM/MRI: head Comments CT head viewed by me and report reviewed. Discussed with radiologist. See report below: NAME: CLARISSA MILES [facility] REC#: [id number] PT STATUS: REG ER : 1932 PHYSICIAN: HERMES FORD MD ADMIT DATE: 05/31/19/ER Draft Date of Exam:05/31/19 CT HEAD WO-R/O STROKE PROCEDURE: CT head without contrast r/o stroke. TECHNIQUE: Multiple contiguous axial images were obtained through the brain without the use of intravenous contrast. Auto Exposure Controls were utilized during the CT exam to meet ALARA standards for radiation dose reduction. INDICATION: Unresponsive. COMPARISON: Correlation is made with head CT from 02/06/2019. FINDINGS: Ventricular size is stable. There is moderate periventricular hypodensity noted consistent with senescent change. No sulcal effacement or midline shift is identified. No acute intra-axial or extra-axial hemorrhage is seen. IMPRESSION: Chronic and senescent changes. No acute intracranial process is detected. Dictated on workstation # [id number] Dict: 05/31/19 1746 Trans: 05/31/19 180 [facility] [id number] Interpreted by: ROZ HUERTAS MD Diagonstic Imaging: CT Plain Films/CT/US/NM/MRI: c-spine Comments CT cervical spine report reviewed. See report below: NAME: CLARISSA MILES [facility] REC#: [id number] PT STATUS: REG ER : 1932 PHYSICIAN: HERMES FORD MD ADMIT DATE: 05/31/19/ER Draft Date of Exam:05/31/19 CT CERVICAL SPINE WO PROCEDURE: CT cervical spine without contrast. TECHNIQUE: Multiple contiguous axial images were obtained through the cervical spine without the use of intravenous contrast. Sagittal and coronal reformations were then performed. Auto Exposure Controls were utilized during the CT exam to meet ALARA standards for radiation dose reduction. INDICATION: Unresponsive. FINDINGS: There is minimal anterolisthesis of C6 on C7. Vertebral body heights are maintained. No fractures are identified. There is multilevel facet arthropathy. The prevertebral tissues are obscured by the ET tube and NG tube. IMPRESSION: Cervical spondylosis. No acute bony abnormality is detected. Dictated on workstation # [id number] Dict: 05/31/19 1759 Trans: 05/31/19 1803 [facility] [id number] Interpreted by: ROZ HUERTAS MD Diagonstic Imaging: Xray Plain Films/CT/US/NM/MRI: chest Comments Chest x-ray viewed by me and report reviewed. See report below: NAME: CLARISSA MILES [facility] REC#: [id number] PT STATUS: REG ER : 1932 PHYSICIAN: HERMES FORD MD ADMIT DATE: 05/31/19/ER Draft Date of Exam:05/31/19 CHEST 1 VIEW, AP/PA ONLY INDICATION: Unresponsive. TIME OF EXAM: 5:23 p.m. COMPARISON: Correlation made with prior study from 02/06/2019. EXAMINATION: Single view of the chest was obtained. FINDINGS: Extensive infiltrate has developed throughout the right lung. There is consolidation in the right base with obscuration of the right heart border suggestive of right middle lobe consolidation. Left lung appears clear. No pneumothorax or effusion is seen. IMPRESSION: Extensive right side pulmonary infiltrate. Dictated on workstation # [id number] Dict: 05/31/19 1741 Trans: 05/31/19 1753 [facility] [id number] Interpreted by: ROZ HUERTAS MD Diagonstic Imaging: CT Plain Films/CT/US/NM/MRI: other (angiogram head and neck) Comments CT angiogram head and neck report reviewed. Discussed with radiologist. See report below: NAME: CLARISSA MILES [facility] REC#: [id number] PT STATUS: REG ER : 1930 PHYSICIAN: HERMES FORD MD ADMIT DATE: 05/31/19/ER Draft Date of Exam:05/31/19 CT ANGIO HEAD/NECK PROCEDURE: CT angiography of the head and CT angiography of the neck with and without contrast. TECHNIQUE: Contiguous noncontrast images were obtained from the skull base through the vertex. After intravenous contrast administration, helical CT angiography of the neck was performed. Source data was reformatted into multiple MIP projections. Delayed post contrast acquisition was also obtained. Auto Exposure Controls were utilized during the CT exam to meet ALARA standards for radiation dose reduction. INDICATION: Unresponsive and possible stroke. FINDINGS: Delayed postcontrast imaging of the brain is without evidence of an abnormal enhancing lesion. CT angiographic portion of the study demonstrates the patient to be intubated. There does appear to be pleural fluid and consolidation in the right lung. Common carotid arteries appear to be patent. Internal carotid arteries appear to be patent. There is a moderate amount of calcified plaque in the carotid siphons, bilaterally. Bilateral middle cerebral arteries are widely patent. No filling defect or thromboembolism is seen. The paired anterior cerebral arteries appear patent. The basilar is patent. Bilateral posterior cerebral arteries are patent. The vertebral arteries are patent and appear to be codominant. IMPRESSION: Atherosclerotic changes. No thromboembolism or large branch occlusion is identified. Dictated on workstation # [id number] Dict: 05/31/19 1823 Trans: 05/31/19 1835 [facility] [id number] Interpreted by: ROZ HUERTAS MD Diagonstic Imaging: CT Plain Films/CT/US/NM/MRI: head (CT perfusion) Comments CT perfusion study report reviewed and discussed with radiologist. See report below: NAME: CLARISSA MILES [facility] REC#: [id number] PT STATUS: REG ER : 1930 PHYSICIAN: HERMES FORD MD ADMIT DATE: 05/31/19/ER Draft Date of Exam:05/31/19 CT HEAD PERFUSION W/ CONTRAST INDICATION: Possible stroke. Patient is unresponsive. EXAMINATION: CT perfusion protocol was performed. FINDINGS: CBF, CBV and Tmax calculations were performed. No mismatch is observed. There is no evidence of ischemic core or penumbra. IMPRESSION: Unremarkable CT perfusion study. Dictated on workstation # [id number] Dict: 05/31/19 1816 Trans: 05/31/191829 [facility] [id number] Interpreted by: ROZ HUERATS MD Diagonstic Imaging: CT Plain Films/CT/US/NM/MRI: chest Comments CT chest viewed by me and report reviewed. Discussed with radiologist. See report below: NAME: CLARISSA MILES [facility] REC#: [id number] PT STATUS: REG ER : 1930 PHYSICIAN: HERMES FORD MD ADMIT DATE: 05/31/19/ER Draft Date of Exam:05/31/19 CT CHEST WO PROCEDURE: CT chest without contrast. TECHNIQUE: Multiple contiguous axial images were obtained through the chest without the use of intravenous contrast. Auto Exposure Controls were utilized during the CT exam to meet ALARA standards for radiation dose reduction. INDICATION: Pulmonary infiltrates. COMPARISON: No prior study is available for comparison. FINDINGS: ET tube appears to have tip just above the adonis. NG tube passes into the stomach. There is extensive consolidation with air bronchograms throughout the right upper and right lower lobe. No significant aeration of the right lower lobe is seen. There is a mildly aerated right upper lobe. There is also patchy airspace infiltrates in the left upper lobe and left lower lobe but to a much lesser degree than the right. Small right-sided effusion is also present. No pericardial or left-sided effusion is seen. Upper abdomen is unremarkable. IMPRESSION: Extensive consolidation with air bronchograms throughout the right lung consistent with pneumonia. There are some patchy left-sided infiltrates present as well. Dictated on workstation # [id number] Dict: 05/31/19 1828 Trans: 05/31/19 183 [facility] [id number] Interpreted by: ROZ HUERTAS MD Critical Care Note Critical Care Start Time: 17:10 Stop Time: 19:15 Progress Stroke activation was paged. An adequate NIH could not be performed as patient was in respiratory failure. BiPAP was applied while I contacted the patient's son, Niraj Miles, who is traveling in [place]. His phone number is [phone]. After discussing the patient's situation, her son wishes to keep her a full CODE STATUS. Preparations were made for intubation as she remained hypoxic with oxygen saturations in the 80s on BiPAP. Patient was intubated with RSI. Etomidate and succinylcholine were administered at 17:27. Patient was intubated with an 8.0 ET tube by Pravin Jaimes NP. She required suctioning of secretions. Intubation was successful on the second attempt at 19:29. Position was initially confirmed with color change Tomography and auscultation and eventually confirmed by CT scan and tube was retracted 2 cm as it was right in the adonis. Sedation was maintained with a propofol drip. Eaton catheter was placed. Patient was taken to CT at 17:35. CT of the head without contrast showed no evidence of mass or hemorrhage. Additional CT angiogram of the head and neck and CT perfusion studies were performed. These likewise were negative. Patient was stable on the ventilator. She was given Zosyn as empiric antibiotic therapy for aspiration pneumonia. The patient's situation was again discussed with her son. He requested transfer to [facility]. Arrangements were made with Dr. Mckee who graciously accepted the transfer. Patient was noted to have an elevated d-dimer. Presence of pulmonary embolus could not be determined by CT of the chest as there is already contrast washout. She is being empirically started on a heparin drip at the request of Dr. Mckee. Departure Impression Primary Impression: Respiratory failure Qualified Codes: J96.01 - Acute respiratory failure with hypoxia Additional Impressions: Aspiration pneumonia Qualified Codes: J69.0 - Pneumonitis due to inhalation of food and vomit Unresponsive Right sided weakness Disposition: XFER SHT-TRM HOSP Condition: Stable Transfer Time Spoke to Accepting Phy: 19:09 Transfer Progress Notes Case reviewed with Dr. Mckee, sr account executive at [facility] in [place]. He accepts transfer. Transfer Facility: [facility] Method of Transfer: EMS Departure-Patient Inst. Referrals: SANDRA MANLEY DO (PCP/Family) Primary Care Physician HERMES FORD MD May 31, 2019 19:53
[2019-05-31 20:47] VITALS: BP 93/55
== END 2019-05-31 20:47 | disposition short-term general hospital (02) ==
LOC: EDUNIT# 17:09 → ER 17:10
DX: J96.90 Respiratory failure, unspecified, unspecified whether with hypoxia or hypercapnia (principal); J69.0 Pneumonitis due to inhalation of food and vomit; R53.1 Weakness; G47.30 Sleep apnea, unspecified; I10 Essential (primary) hypertension; E03.9 Hypothyroidism, unspecified; E11.9 Type 2 diabetes mellitus without complications; F41.9 Anxiety disorder, unspecified; Z79.82 Long term (current) use of aspirin; Z90.710 Acquired absence of both cervix and uterus
CPT/HCPCS: 0042T; 31500; 36415; 51702; 70450; 70496; 70498; 71045; 71250; 72125; 80053; 81000; 83605; 84484; 85007; 85027; 85379; 85610; 85730; 87040; 87070; 87077; 87186; 87205; 93005; 93041; 94799; 96361; 96365; 96367; 99291; 99292

== ENCOUNTER 2019-06-24 23:39 | Inpatient (IN) | payer MEDICARE ==
[~2019-06-24] VITALS: Ht 154.9 cm; Wt 73.0 kg
--- OUTSIDE RECORDS SUMMARY | 2019-06-24 23:44 | XMS REPORT | Encounter Summary ---
Author Author [facility] Organization [facility] Address Unknown Phone Unavailable Care Team Providers Care Aircraft Structural Repairer Name Role Phone PCP Unavailable Encounter Details Care Team Description Date Type Department 05/31/2019 Hospital [facility] Encounter [facility] [address] [phone] Social History Date Tobacco Use Types Packs/Day Years Used Never Assessed Sex Assigned at Date Recorded Not on file Industry Job Start Date Occupation Not on file Not on file Not on file Travel End Travel History Travel Start No recent travel history available. documented as of this encounter Plan of Treatment Not on filedocumented as of this encounter Procedures Comments Procedure Name Priority Date/Time Associated Diagnosis CT HEAD EXTERNAL IMAGING Routine 05/31/2019 5:45 PM CDT documented in this encounter Results * CT HEAD EXTERNAL IMAGING (05/31/2019 5:45 PM CDT) Specimen Narrative Performed At This order has been auto finalized and does not contain a result. documented in this encounter Visit Diagnoses Not on filedocumented in this encounter
--- OUTSIDE RECORDS SUMMARY | 2019-06-24 23:44 | XMS REPORT | Clinical Summary ---
Author Author [facility] Organization [facility] Address Unknown Phone Unavailable Care Team Providers Care Component Lab Tech Name Role Phone PCP Unavailable Source Comments Some departments are not documenting in the electronic medical record. If you d o not see the information that you expected, contact Release of Information in [facility] Information Management department at [phone] for further assistan ce in locating additional records.[facility] Allergies Not on File Medications Not on file Active Problems Not on file Encounters Care Team Description Date Type Specialty 05/31/2019 Hospital Radiology Encounter 05/31/2019 Hospital Radiology Encounter 05/31/2019 Hospital Radiology Encounter from Last 3 Months Social History Date Tobacco Use Types Packs/Day Years Used Never Assessed Sex Assigned at Date Recorded Not on file Industry Job Start Date Occupation Not on file Not on file Not on file Travel End Travel History Travel Start No recent travel history available. Last Filed Vital Signs Not on file Plan of Treatment Health Maintenance Due Date Last Done Comments PHYSICAL (COMPREHENSIVE) 1939 EXAM DTAP/TDAP VACCINES (1 - 1950 Tdap) SHINGLES RECOMBINANT 1982 VACCINE (1 of 2) OSTEOPOROSIS 1997 SCREENING/MONITORING PNEUMONIA (PCV13/PPSV23) 1997 VACCINES (1 of 2 - PCV13) INFLUENZA VACCINE 08/28/2019 Procedures Comments Procedure Name Priority Date/Time Associated Diagnosis CT HEAD EXTERNAL IMAGING Routine 05/31/2019 6:[address] HEAD EXTERNAL IMAGING Routine 05/31/2019 5:[address] HEAD EXTERNAL IMAGING Routine 05/31/2019 5:45 PM CDT from Last 3 Months Results * CT HEAD EXTERNAL IMAGING (05/31/2019 6:00 PM CDT) Only the most recent of 3 results within the time period is included. Specimen Narrative Performed At This order has been auto finalized and does not contain a result. from Last 3 Months Advance Directives Patient Crystal Grinder Explanation Type Date Recorded Advance Directive/DPOA
--- OUTSIDE RECORDS SUMMARY | 2019-06-24 23:44 | XMS REPORT | Encounter Summary ---
Author Author [facility] Organization [facility] Address Unknown Phone Unavailable Care Team Providers Care Metal Hanger Name Role Phone PCP Unavailable Encounter Details Care Team Description Date Type Department 05/31/2019 Hospital [facility] Encounter [facility] [address] [phone] Social History Date Tobacco Use Types Packs/Day [...] Diagnosis CT HEAD EXTERNAL IMAGING Routine 05/31/2019 5:50 PM CDT documented in this encounter Results * CT HEAD EXTERNAL IMAGING (05/31/2019 5:50 PM CDT) Specimen Narrative Performed At This order has been auto finalized and does not contain a result. documented in this encounter Visit Diagnoses Not on filedocumented in this encounter
--- OUTSIDE RECORDS SUMMARY | 2019-06-24 23:44 | XMS REPORT | Encounter Summary ---
Author Author [facility] Organization [facility] Address Unknown Phone Unavailable Care Team Providers Care Supervisor [place] Department Name Role Phone PCP Unavailable Encounter Details Care Team Description Date Type Department 05/31/2019 Hospital [facility] Encounter [facility] System [address] [id number] Social History Date Tobacco Use Types Packs/Day [...] EXTERNAL IMAGING Routine 05/31/2019 6:00 PM CDT documented in this encounter Results * CT HEAD EXTERNAL IMAGING (05/31/2019 6:00 PM CDT) Specimen Narrative Performed At This order has been auto finalized and does not contain a result. documented in this encounter Visit Diagnoses Not on filedocumented in this encounter
[2019-06-24] MEDS ORDERED: CEFEPIME INJECTION 1,000 MG in WATER (STERILE) FOR INJECTION 10 ML IV ONE (23:45)
--- OUTSIDE RECORDS SUMMARY | 2019-06-24 23:45 | XMS REPORT | Continuity of Care Document ---
Author Organization Unknown Address Unknown Phone Unavailable Allergies Active Description Code Type Severity Reaction Onset Reported/Identified Relationship to Patient Clinical Status Yes No Known Drug Allergies [id number] Drug Allergy Unknown N/A 07/23/2012 Medications There [...] 11/12/2015 MANLEY SANDRA Slade Ot 715.96 11/12/2015 MANLEY DO SANDRA Slade Ot 737.30 11/12/2015 MANLEY SANDRA Slade Ot V43.64 11/12/2015 MANLEY SANDRA Slade Ot V43.65 11/12/2015 MANLEYLEONARD HOLT SANDRA Slade Ot 729.5 11/12/2015 Ot 733.90 11/12/2015 Ot 401.9 11/12/2015 Ot 780.79 11/12/2015 Ot V58.66 11/12/2015 Ot V58.69 11/12/2015 BRANDYENS HOLT SCARLET Latha Ot 729.5 11/12/2015 MANLEYLEONARD HOLT SANDRA Slade Ot 715.96 11/12/2015 VINEET HOLT SANDRA Slade Ot 737.30 11/12/2015 VINEET HOLT SANDRA Slade Ot V43.64 11/12/2015 MANLEYLEONARD HOLT SANDRA Slade Ot V43.65 11/12/2015 MANLEY DO, SANDRA Slade Ot 729.5 11/19/2015 Ot 401.9 11/19/2015 Ot 780.79 11/19/2015 Ot V58.66 11/19/2015 Ot V58.69 11/19/2015 NANETTE SCARLET Latha Ot 729.5 11/19/2015 VINEET HOLT SANDRA Slade Ot 715.96 11/19/2015 VINEET HOLT SANDRA Slade Ot 737.30 11/19/2015 MANLEY DO, SANDRA Slade Ot V43.64 11/19/2015 MANLEY DO, SANDRA Slade Ot V43.65 11/19/2015 MANLEYLEONARD HOLT SANDRA Slade Ot 729.5 11/19/2015 LETICIA SIMMONS, JOANNA Gordon Ot G56.02 11/19/2015 LETICIA SIMMONS, JOANNA Gordon Ot Z01.818 11/19/2015 LETICIA SIMMONS, JOANNA Gordon Ot Z11.2 11/19/2015 LETICIA SIMMONS, JOANNA Gordon Ot E03.9 HYPOTHYROIDISM, UNSPECIFIED 11/19/2015 LETICIA SIMMONS, JOANNA Gordon Ot G56.02 CARPAL TUNNEL SYNDROME, LEFT UPPER LIMB 11/19/2015 JOANNA KELLY MD Ot I10 ESSENTIAL (PRIMARY) HYPERTENSION 11/19/2015 JOANNA KELLY MD Ot Z79.899 OTHER CONCRETE BLOCK [place] (CURRENT) DRUG THERAPY 09/23/2016 Ot 401.9 HYPERTENSION [...] TUNNEL SYNDROME, LEFT UPPER LIMB 09/23/2016 JOANNA KELLY MD, Ot Z01.818 ENCOUNTER FOR OTHER PREPROCEDURAL EXAMIN [...] EYES OPEN, SPONTANEOUS, EMR 02/06/2019 SALOME JOSE MD, Ot R40.2252 COMA SCALE, BEST VERBAL RESPONSE, ORIENT 02/06/2019 SALOME JOSE MD Ot R40.2362 COMA SCALE, BEST MOTOR RESPONSE, OBEYS C 02/06/2019 SALOME JOSE MD Ot R51 HEADACHE 02/06/2019 SALOME JOSE MD Ot W01.198A FALL SAME LEV FROM SLIP/TRIP W STRIKE AG 02/06/2019 SALOME JOSE MD Ot Z79.82 NURSING HOME (CURRENT) USE OF ASPIRIN 02/06/2019 SALOME JOSE [...] AG 02/08/2019 SALOME JOSE MD, Ot Z79.82 NURSING HOME (CURRENT) USE OF ASPIRIN 02/08/2019 SALOME JOSE MD, Ot Z90.710 ACQUIRED ABSENCE OF BOTH CERVIX AND UTER 02/08/2019 SALOME JOSE MD, Ot Z98.890 OTHER SPECIFIED POSTPROCEDURAL STATES 06/05/2019 HERMES FORD MD, Ot E03.9 HYPOTHYROIDISM, UNSPECIFIED 06/05/2019 HERMES FORD MD, Ot E11.9 TYPE 2 DIABETES MELLITUS WITHOUT COMPLIC 06/05/2019 HERMES FORD MD, Ot F41.9 ANXIETY DISORDER, UNSPECIFIED 06/05/2019 HERMES FORD MD, Ot G47.30 SLEEP APNEA, UNSPECIFIED 06/05/2019 HERMES FORD MD, Ot I10 ESSENTIAL (PRIMARY) HYPERTENSION 06/05/2019 HERMES FORD MD, Ot J69.0 PNEUMONITIS DUE TO INHALATION OF FOOD AN 06/05/2019 HERMES FORD MD, Ot J96.90 RESPIRATORY FAILURE, UNSP, UNSP W HYPOXI 06/05/2019 HERMES FORD MD, Ot R40.4 TRANSIENT ALTERATION OF AWARENESS 06/05/2019 HERMES FORD MD, Ot R53.1 WEAKNESS 06/05/2019 HERMES FORD MD, Ot Z79.82 CONCRETE BLOCK [place] (CURRENT) USE OF ASPIRIN 06/05/2019 HERMES FORD MD, Ot Z90.710 ACQUIRED ABSENCE OF BOTH CERVIX AND UTER Procedures There is no data. Results Test [...] 02/06/19 08:48 Bacterial blood culture NG NRG Complete blood count (CBC) with automated white blood cell (WBC) differential - 05/31/19 17:12 Blood leukocytes automated count (number/volume) 12.9 10*3/uL 4.3-11.0 Blood erythrocytes automated count (number/volume) 4.82 10*6/uL 4.35-5.85 Venous blood hemoglobin measurement (mass/volume) 11.8 g/dL 11.5-16.0 Blood hematocrit (volume fraction) 39 % 35-52 Automated erythrocyte mean corpuscular volume 80 [foz_us] 80-99 Automated erythrocyte mean corpuscular hemoglobin (mass per erythrocyte) 25 pg 25-34 Automated erythrocyte mean corpuscular hemoglobin concentration measurement (mass/volume) 31 g/dL 32-36 Automated erythrocyte distribution width ratio 14.9 % 10.0- 14.5 Automated blood platelet count (count/volume) 332 10*3/uL 130-400 Automated blood platelet mean volume measurement 9.0 [foz_us] 7.4-10.4 Automated blood neutrophils/100 leukocytes 87 % 42-75 Automated blood lymphocytes/100 leukocytes 6 % 12-44 Blood monocytes/100 leukocytes 7 % 0-12 Automated blood eosinophils/100 leukocytes 0 % 0-10 Automated blood basophils/100 leukocytes 0 % 0-10 Blood neutrophils automated count (number/volume) 11.2 10*3 1.8-7.8 Blood lymphocytes automated count (number/volume) 0.7 10*3 1.0-4.0 Blood monocytes automated count (number/volume) 1.0 10*3 0.0- 1.0 Automated eosinophil count 0.0 10*3/uL 0.0-0.3 Automated blood basophil count (count/volume) 0.0 10*3/uL 0.0-0.1 Comprehensive metabolic panel - 05/31/19 17:12 Serum or plasma sodium measurement (moles/volume) 138 mmol/L 135-145 Serum or plasma potassium measurement (moles/volume) 4.4 mmol/L 3.6-5.0 Serum or plasma chloride measurement (moles/volume) 102 mmol/L 98-107 Carbon dioxide 23 mmol/L 21-32 Serum or plasma anion gap determination (moles/volume) 13 mmol/L 5-14 Serum or plasma urea nitrogen measurement (mass/volume) 17 mg/dL 7-18 Serum or plasma creatinine measurement (mass/volume) 0.90 mg/dL 0.60-1.30 Serum or plasma urea nitrogen/creatinine mass ratio 19 NRG Serum or plasma creatinine measurement with calculation of estimated glomerular filtration rate 59 NRG Serum or plasma glucose measurement (mass/volume) 208 mg/dL 70-105 Serum or plasma calcium measurement (mass/volume) 8.6 mg/dL 8.5-10.1 Serum or plasma total bilirubin measurement (mass/volume) 0.5 mg/dL 0.1-1.0 Serum or plasma alkaline phosphatase measurement (enzymatic activity/volume) 74 U/L 40-136 Serum or plasma aspartate aminotransferase measurement (enzymatic activity/volume) 40 U/L 5-34 Serum or plasma alanine aminotransferase measurement (enzymatic activity/volume) 8 U/L 0-55 Serum or plasma protein measurement (mass/volume) 7.2 g/dL 6.4-8.2 Serum or plasma albumin measurement (mass/volume) 3.2 g/dL 3.2-4.5 CALCIUM CORRECTED 9.2 mg/dL 8.5-10.1 PT panel in platelet poor plasma by coagulation assay - 05/31/19 17:12 Prothrombin time (PT) in platelet poor plasma by coagulation assay 16.0 s 12.2-14.7 INR in platelet poor plasma or blood by coagulation assay 1.2 0.8-1.4 Activated partial thromboplastin time (aPTT) in platelet poor plasma bycoagulation assay - 05/31/19 17:12 Activated partial thromboplastin time (aPTT) in platelet poor plasma bycoagulation assay 31 s 24-35 Fibrin D-dimer FEU measurement in platelet poor plasma (mass/volume) - 05/31/19 17:12 Fibrin D-dimer FEU measurement in platelet poor plasma (mass/volume) 9.12 ug/mL 0.00-0.49 Serum or plasma troponin i.cardiac measurement (mass/volume) - 05/31/19 17:12 Serum or plasma troponin i.cardiac measurement (mass/volume) 0.143 ng/mL <0.028 Manual absolute plasma cell count - 05/31/19 17:12 Blood monocytes/100 leukocytes 4 % NRG Manual blood segmented neutrophils/100 leukocytes 51 % NRG Blood band neutrophils/100 leukocytes 33 % NRG Manual blood lymphocytes/100 leukocytes 6 % NRG Manual eosinophils/100 leukocytes in nose 0 % NRG Manual blood basophils/100 leukocytes 0 % NRG Blood erythrocyte morphology finding identification NORMAL NRG Manual blood metamyelocytes/100 leukocytes 6 % NRG Complete urinalysis with reflex to culture - 05/31/19 17:16 Urine color determination YELLOW NRG Urine clarity determination VERY CLOUDY NRG Urine pH measurement by test strip 5 5-9 Specific gravity of urine by test strip 1.025 1.016-1.022 Urine protein assay by test strip, semi-quantitative 2+ NEGATIVE Urine glucose detection by automated test strip NEGATIVE NEGATIVE Erythrocytes detection in urine sediment by light microscopy 3+ NEGATIVE Urine ketones detection by automated test strip 1+ NEGATIVE Urine nitrite detection by test strip NEGATIVE NEGATIVE Urine total bilirubin detection by test strip 1+ NEGATIVE Urine urobilinogen measurement by automated test strip (mass/volume) NORMAL NORMAL Urine leukocyte esterase detection by dipstick 2+ NEGATIVE Automated urine sediment erythrocyte count by microscopy (number/high power field) [HPF] NRG Automated urine sediment leukocyte count by microscopy (number/high power field) [HPF] NRG Bacteria detection in urine sediment by light microscopy NEGATIVE NRG Squamous epithelial cells detection in urine sediment by light microscopy 5-10 NRG Crystals detection in urine sediment by light microscopy NONE NRG Casts detection in urine sediment by light microscopy NONE NRG Mucus detection in urine sediment by light microscopy NEGATIVE NRG Complete urinalysis with reflex to culture NO NRG Amorphous sediment detection in urine sediment by light microscopy MOD OLAMIDE URATES NRG Bacterial blood culture - 05/31/19 17:22 Bacterial blood culture NG NRG Sputum Gram stain - 05/31/19 17:33 Sputum Gram stain Moderate Gram negative bacilli NRG Bacterial sputum culture - 05/31/19 17:33 FREE TEXT EXTERNAL SUSCEPTIBILITY REPORTED 06/03 11:40 NRG QUANTITY OF GROWTH Moderate Growth NRG FREE TEXT ENTRY 2 ID REPORTED 06/01/19 17:05 NRG Bacterial sputum culture [id number] NRG Dirithromycin susceptibility test by disk diffusion - 05/31/19 17:33 Gentamicin susceptibility test by minimum inhibitory concentration <= NRG Trimethoprim/sulfamethoxazole susceptibility test by minimum inhibitoryconcentration <= NRG Levofloxacin susceptibility test by minimum inhibitory concentration <= NRG Ampicillin susceptibility test by minimum inhibitory concentration <= NRG Cefazolin susceptibility test by minimum inhibitory concentration <= NRG Ceftriaxone susceptibility test by minimum inhibitory concentration <= NRG Piperacillin/tazobactam susceptibility test by minimum inhibitory concentration <= NRG Ciprofloxacin susceptibility test by minimum inhibitory concentration <= NRG Meropenem susceptibility test by minimum inhibitory concentration <= NRG Amoxicillin and clavulanate potassium susc OLIVIER <= NRG Imipenem susceptibility test by minimum inhibitory concentration <= NRG Dirithromycin susceptibility test by disk diffusion - 05/31/19 17:33 Oxacillin susceptibility test by minimum inhibitory concentration 0.5 NRG Clindamycin susceptibility test by minimum inhibitory concentration <= NRG Erythromycin susceptibility test by minimum inhibitory concentration <= NRG Trimethoprim/sulfamethoxazole susceptibility test by minimum inhibitoryconcentration <= NRG Vancomycin susceptibility test by minimum inhibitory concentration 1 NRG Levofloxacin susceptibility test by minimum inhibitory concentration <= NRG Rifampin susceptibility test by minimum inhibitory concentration <= NRG Cefazolin susceptibility test by minimum inhibitory concentration <= NRG Linezolid susceptibility test by minimum inhibitory concentration 2 NRG Penicillin G susceptibility test by minimum inhibitory concentration > NRG Moxifloxacin susceptibility test by minimum inhibitory concentration <= NRG Minocycline susc OLIVIER <= NRG Bacterial blood culture - 05/31/19 17:36 FREE TEXT EXTERNAL SEE COMMENTS NRG QUANTITY OF GROWTH Isolated NRG Bacterial blood culture [id number] NRG Blood lactic acid measurement (moles/volume) - 05/31/19 19:05 Blood lactic acid measurement (moles/volume) 5.04 mmol/L 0.50- 2.00 Encounters ACCT No. Visit Date/Time Discharge Status Pt. Type Provider Facility Loc./Unit Complaint [id number] 05/31/2019 17:10:00 05/31/2019 20:47:00 DIS Outpatient LILIANA SIMMONS, HERMES Saucedo [facility] ER UNRESPONSIVE [id number] 02/06/2019 07:54:00 02/06/2019 12:58:00 DIS Emergency SALOME JOSE MD [facility] ER FALL [id number] 01/24/2019 15:53:00 01/24/2019 23:59:59 CLS Preadmit SANDRA MANLEY DO [facility] RAD MAJOR DEPRESSIVE DISORDER [id number] 09/23/2016 11:29:00 09/23/2016 23:59:59 CLS Outpatient JOANNA DAVILA MD [facility] RAD CHRONIC DYSPHAGIA, R13.14, R13.19 [id number] 11/19/2015 07:11:00 11/19/2015 11:05:00 DIS Outpatient JOANNA KELLY MD [facility] SDC LT.CARPEL TUNNEL SYNDROME [id number] 11/12/2015 10:41:00 11/12/2015 23:59:59 CLS Outpatient JOANNA KELLY MD [facility] PREOP LEFT CARPEL TUNNEL [id number] 08/06/2014 12:10:00 08/06/2014 14:33:00 DIS Emergency BRIJESH IRVIN [facility] ER HIGH BP [id number] 04/22/2014 15:13:00 04/22/2014 17:13:00 DIS Emergency ASHWINI BENITEZ DO [facility] ER ELEVATED BLOOD PRESSURE [id number] 04/10/2014 11:50:00 04/11/2014 15:15:00 DIS Inpatient SANDRA MANLEY DO [facility] CSD CP,HTN [id number] 03/18/2014 16:37:00 03/18/2014 23:59:59 CLS Outpatient SANDRA MANLEY DO [facility] RAD PAIN IN DORSOL FOOT [id number] 04/19/2013 12:07:00 04/19/2013 23:59:59 CLS Outpatient SANDRA MANLEY DO [facility] RAD OA [id number] 04/12/2013 13:54:00 04/12/2013 23:59:59 CLS Outpatient SCARLET FITZPATRICK DO [facility] RAD LEG PAIN, CANT BEND LEG [id number] 11/12/2015 10:39:00 Document Registration [id number] 07/23/2012 15:58:00 Document Registration [id number] 05/06/2011 06:15:00 Document Registration [id number] 05/28/2010 10:27:00 Document Registration
--- NOTE | 2019-06-24 23:46 | NUR ---
NOTIFIED RT OF NEW RESPIRITORY PATIENT PER DR BENITEZ FOR BREATHING TREATMENT AND EVALUATION
[2019-06-24] MEDS ORDERED: RT-ALBUTEROL/IPRATROPIUM 3 ML (DUONEB) VIAL ONE (23:51)
[2019-06-25] VITALS (8 sets, daily range): BP systolic 101–149; BP diastolic 43–83
[2019-06-25] MEDS ORDERED: RT-ALBUTEROL/IPRATROPIUM 3 ML (DUONEB) VIAL INH ONE
[2019-06-25] MEDS ORDERED: methylPREDNISolone 125 MG (Solu-MEDROL) VIAL IVP ONE
--- NOTE | 2019-06-25 | NUR ---
PATIENT PLACED ON 3 LITERS NC, ORDER TO KEP SATS GREATER THAN 94% PER EMMANUEL
[2019-06-25 00:06] LABS: BASOPHILS % (AUTO) 1 % (0-10); EOSINOPHILS # (AUTO) 0.5 10^3/uL (0.0-0.3); EOSINOPHILS % (AUTO) 7 % (0-10); HEMATOCRIT 32 % (35-52); HEMOGLOBIN 9.7 G/DL (11.5-16.0); LYMPHOCYTES # (AUTO) 1.7 X 10^3 (1.0-4.0); LYMPHOCYTES % (AUTO) 24 % (12-44); MEAN CORPUSCULAR HEMOGLOBIN 24 PG (25-34); MEAN CORPUSCULAR HGB CONC 31 G/DL (32-36); MEAN CORPUSCULAR VOLUME 80 FL (80-99); MEAN PLATELET VOLUME 9.3 FL (7.4-10.4); MONOCYTES # (AUTO) 0.7 X 10^3 (0.0-1.0); MONOCYTES % (AUTO) 9 % (0-12); NEUTROPHILS # (AUTO) 4.3 X 10^3 (1.8-7.8); NEUTROPHILS % (AUTO) 59 % (42-75); PLATELET COUNT 274 10^3/uL (130-400); RED CELL DISTRIBUTION WIDTH 16.7 % (10.0-14.5); WHITE BLOOD COUNT 7.2 10^3/uL (4.3-11.0)
[2019-06-25 00:23] LABS: ALANINE AMINOTRANSFERASE 17 U/L (0-55); ALBUMIN 3.4 GM/DL (3.2-4.5); ALKALINE PHOSPHATASE 90 U/L (40-136); BILIRUBIN,TOTAL 0.2 MG/DL (0.1-1.0); BUN/CREATININE RATIO 15; CALCIUM 9.4 MG/DL (8.5-10.1); CARBON DIOXIDE 24 MMOL/L (21-32); CHLORIDE 97 MMOL/L (98-107); GFR ESTIMATED > 60; GLUCOSE 200 MG/DL (70-105); MAGNESIUM 1.5 MG/DL (1.8-2.4); POTASSIUM 3.7 MMOL/L (3.6-5.0); SODIUM 137 MMOL/L (135-145); TOTAL PROTEIN 8.2 GM/DL (6.4-8.2)
[2019-06-25 00:28] LABS: INR 1.6 (0.8-1.4); PROTHROMBIN TIME PATIENT 19.9 SEC (12.2-14.7)
[2019-06-25] MEDS ORDERED: NS IV 1000 ML 1,000 ML ONE (00:37)
[2019-06-25] MEDS ORDERED: NS IV 1000 ML 1,000 ML IV SCH (00:42)
[2019-06-25] MEDS ORDERED: MAGNESIUM 1 GM/100 ML IVPB 100 ML IV ONE (00:45)
[2019-06-25 01:17] LABS: BILIRUBIN,URINE NEGATIVE (NEGATIVE); CLARITY,URINE CLEAR; COLOR,URINE YELLOW; GLUCOSE, URINE (UA) NEGATIVE (NEGATIVE); KETONES,URINE NEGATIVE (NEGATIVE); LEUKOCYTE ESTERASE ,URINE NEGATIVE (NEGATIVE); NITRITE,URINE NEGATIVE (NEGATIVE); PH,URINE 6 (5-9); PROTEIN,URINE NEGATIVE (NEGATIVE); UROBILINOGEN,URINE NORMAL (NORMAL)
[2019-06-25 01:24] LABS: BACTERIA,URINE NEGATIVE /HPF
--- OUTSIDE RECORDS SUMMARY | 2019-06-25 02:21 | XMS REPORT | Encounter Summary ---
Author Author [facility] Organization [facility] Address Unknown Phone Unavailable Care Team Providers Care Registered Pharmacy Technician Name Role Phone PCP Unavailable Encounter Details Care Team Description Date Type Department 05/31/2019 Hospital [facility] Encounter Health System [address] [id number] Social History Date Tobacco Use Types Packs/Day [...]
--- OUTSIDE RECORDS SUMMARY | 2019-06-25 02:21 | XMS REPORT | Encounter Summary ---
Author Author [facility] Organization [facility] Address Unknown Phone Unavailable Care Team Providers Care Adjunct Psychology Instructor Name Role Phone PCP Unavailable Encounter Details Care Team Description Date Type Department 05/31/2019 Hospital [facility] Encounter Health System [address] [phone] Social History Date Tobacco Use Types Packs/Day [...]
--- OUTSIDE RECORDS SUMMARY | 2019-06-25 02:21 | XMS REPORT | Clinical Summary ---
Author Author [facility] Organization [facility] Address Unknown Phone Unavailable Care Team Providers Care Metal Burnisher Name Role Phone PCP Unavailable Source Comments Some departments are not documenting in the electronic medical record. If you d o not see the information that you expected, contact Release of Information in [facility] Information Management department at [phone] for further assistan ce in locating additional records.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
--- OUTSIDE RECORDS SUMMARY | 2019-06-25 02:21 | XMS REPORT | Encounter Summary ---
Author Author [facility] Organization [facility] Address Unknown Phone Unavailable Care Team Providers Care Processing Associate Name Role Phone PCP Unavailable Encounter Details Care Team Description Date Type Department 05/31/2019 Hospital [facility] Encounter Health System [address] [id number] Social History Date Tobacco Use Types Packs/Day [...]
--- OUTSIDE RECORDS SUMMARY | 2019-06-25 02:22 | XMS REPORT | Continuity of Care Document ---
Author Organization Unknown Address Unknown Phone Unavailable Allergies Active Description Code Type Severity Reaction Onset Reported/Identified Relationship to Patient Clinical Status Yes No Known Drug Allergies [id number] Drug Allergy Unknown N/A 07/23/2012 Medications There [...] 11/12/2015 MANLEY SANDRA Slade Ot V43.64 11/12/2015 MANLYE SANDRA Slade Ot V43.65 11/12/2015 MANLEYLEONARD HOLT SANDRA Slade Ot 729.5 11/12/2015 Ot 733.90 11/12/2015 Ot 401.9 11/12/2015 Ot 780.79 11/12/2015 Ot V58.66 11/12/2015 Ot V58.69 11/12/2015 BRANDYENS HOLT SCARLET Latha Ot 729.5 11/12/2015 MANLEYLEONARD OHLT SANDRA Slade Ot 715.96 11/12/2015 VINEET HOLT [...] 11/19/2015 JOANNA KELLY MD Ot Z79.899 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 09/23/2016 Ot 401.9 HYPERTENSION [...] MD Ot R13.19 OTHER DYSPHAGIA 10/25/2016 JOANNA DVAILA MD Ot R13.14 DYSPHAGIA, PHARYNGOESOPHAGEAL PHASE 10/25/2016 [...] AG 02/06/2019 SALOME JOSE MD Ot Z79.82 CARE HOME (CURRENT) USE OF ASPIRIN 02/06/2019 SALOME [...] AG 02/08/2019 SALOME JOSE MD, Ot Z79.82 CARE HOME (CURRENT) USE OF ASPIRIN 02/08/2019 SALOME [...] WEAKNESS 06/05/2019 HERMES FORD MD, Ot Z79.82 CABLE TELEVISION 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 (CURRENT) 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 OF ASPIRIN 06/05/2019 HERMES FORD [...] REPORTED 06/01/19 17:05 NRG Bacterial sputum culture [id number] NRG Dirithromycin susceptibility test by disk diffusion [...] 05/31/19 17:36 FREE TEXT EXTERNAL SEE COMMENTS NR QUANTITY OF GROWTH Isolated [facility] Bacterial blood culture [id number] [facility] Blood lactic acid measurement (moles/volume) - 05/31/19 19:05 Blood lactic acid measurement (moles/volume) 5.04 mmol/L 0.50- 2.00 Complete blood count (CBC) with automated white blood cell (WBC) differential - 06/24/19 23:52 Blood leukocytes automated count (number/volume) 7.2 10*3/uL 4.3-11.0 Blood erythrocytes automated count (number/volume) 3.99 10*6/uL 4.35-5.85 Venous blood hemoglobin measurement (mass/volume) 9.7 g/dL 11.5-16.0 Blood hematocrit (volume fraction) 32 % 35-52 Automated erythrocyte mean corpuscular volume 80 [foz_us] 80-99 Automated erythrocyte mean corpuscular hemoglobin (mass per erythrocyte) 24 pg 25-34 Automated erythrocyte mean corpuscular hemoglobin concentration measurement (mass/volume) 31 g/dL 32-36 Automated erythrocyte distribution width ratio 16.7 % 10.0- 14.5 Automated blood platelet count (count/volume) 274 10*3/uL 130-400 Automated blood platelet mean volume measurement 9.3 [foz_us] 7.4-10.4 Automated blood neutrophils/100 leukocytes 59 % 42-75 Automated blood lymphocytes/100 leukocytes 24 % 12-44 Blood monocytes/100 leukocytes 9 % 0-12 Automated blood eosinophils/100 leukocytes 7 % 0-10 Automated blood basophils/100 leukocytes 1 % 0-10 Blood neutrophils automated count (number/volume) 4.3 10*3 1.8-7.8 Blood lymphocytes automated count (number/volume) 1.7 10*3 1.0-4.0 Blood monocytes automated count (number/volume) 0.7 10*3 0.0- 1.0 Automated eosinophil count 0.5 10*3/uL 0.0-0.3 Automated blood basophil count (count/volume) 0.0 10*3/uL 0.0-0.1 Comprehensive metabolic panel - 06/24/19 23:52 Serum or plasma sodium measurement (moles/volume) 137 mmol/L 135-145 Serum or plasma potassium measurement (moles/volume) 3.7 mmol/L 3.6-5.0 Serum or plasma chloride measurement (moles/volume) 97 mmol/L 98-107 Carbon dioxide 24 mmol/L 21-32 Serum or plasma anion gap determination (moles/volume) 16 mmol/L 5-14 Serum or plasma urea nitrogen measurement (mass/volume) 12 mg/dL 7-18 Serum or plasma creatinine measurement (mass/volume) 0.80 mg/dL 0.60-1.30 Serum or plasma urea nitrogen/creatinine mass ratio 15 NRG Serum or plasma creatinine measurement with calculation of estimated glomerular filtration rate > NRG Serum or plasma glucose measurement (mass/volume) 200 mg/dL 70-105 Serum or plasma calcium measurement (mass/volume) 9.4 mg/dL 8.5-10.1 Serum or plasma total bilirubin measurement (mass/volume) 0.2 mg/dL 0.1-1.0 Serum or plasma alkaline phosphatase measurement (enzymatic activity/volume) 90 U/L 40-136 Serum or plasma aspartate aminotransferase measurement (enzymatic activity/volume) 21 U/L 5-34 Serum or plasma alanine aminotransferase measurement (enzymatic activity/volume) 17 U/L 0-55 Serum or plasma protein measurement (mass/volume) 8.2 g/dL 6.4-8.2 Serum or plasma albumin measurement (mass/volume) 3.4 g/dL 3.2-4.5 CALCIUM CORRECTED 9.9 mg/dL 8.5-10.1 Magnesium - 06/24/19 23:52 Magnesium 1.5 mg/dL 1.8-2.4 Blood lactic acid measurement (moles/volume) - 06/24/19 23:52 Blood lactic acid measurement (moles/volume) 3.08 mmol/L 0.50- 2.00 PT panel in platelet poor plasma by coagulation assay - 06/24/19 23:52 Prothrombin time (PT) in platelet poor plasma by coagulation assay 19.9 s 12.2-14.7 INR in platelet poor plasma or blood by coagulation assay 1.6 0.8-1.4 Activated partial thromboplastin time (aPTT) in platelet poor plasma bycoagulation assay - 06/24/19 23:52 Activated partial thromboplastin time (aPTT) in platelet poor plasma bycoagulation assay 37 s 24-35 Serum or plasma troponin i.cardiac measurement (mass/volume) - 06/24/19 23:52 Serum or plasma troponin i.cardiac measurement (mass/volume) < ng/mL <0.028 Serum or plasma lithium measurement (moles/volume) - 06/24/19 23:52 BNP PT 112.9 pg/mL <100.0 Complete urinalysis with reflex to culture - 06/25/19 01:10 Urine color determination YELLOW NRG Urine clarity determination CLEAR NRG Urine pH measurement by test strip 6 5-9 Specific gravity of urine by test strip 1.020 1.016-1.022 Urine protein assay by test strip, semi-quantitative NEGATIVE NEGATIVE Urine glucose detection by automated test strip NEGATIVE NEGATIVE Erythrocytes detection in urine sediment by light microscopy NEGATIVE NEGATIVE Urine ketones detection by automated test strip NEGATIVE NEGATIVE Urine nitrite detection by test strip NEGATIVE NEGATIVE Urine total bilirubin detection by test strip NEGATIVE NEGATIVE Urine urobilinogen measurement by automated test strip (mass/volume) NORMAL NORMAL Urine leukocyte esterase detection by dipstick NEGATIVE NEGATIVE Automated urine sediment erythrocyte count by microscopy (number/high power field) NONE NRG Automated urine sediment leukocyte count by [...] NRG Complete urinalysis with reflex to culture CULTURE PENDING NRG Serum or plasma lactate measurement (moles/volume) - 06/25/19 01:40 Serum or plasma lactate measurement (moles/volume) 2.74 mmol/L 0.50-2.00 Encounters ACCT No. Visit Date/Time Discharge Status Pt. Type Provider Facility Loc./Unit Complaint [id number] 05/31/2019 17:10:00 05/31/2019 20:47:00 DIS Outpatient HERMES FORD MD [facility] ER UNRESPONSIVE [id number] 02/06/2019 07:54:00 02/06/2019 12:58:00 DIS Emergency SALOME JOSE MD [facility] ER FALL [id number] 01/24/2019 15:53:00 01/24/2019 23:59:59 CLS Preadmit SANDRA MANLEY DO [facility] RAD MAJOR DEPRESSIVE DISORDER [id number] 09/23/2016 11:29:00 09/23/2016 23:59:59 CLS Outpatient JOANNA DAVILA MD [facility] RAD CHRONIC DYSPHAGIA, R13.14, R13.19 [id number] 11/19/2015 07:11:00 11/19/2015 11:05:00 DIS Outpatient JOANNA KELLY MD [facility] SDC LT.CARPEL TUNNEL SYNDROME [id number] 11/12/2015 10:41:00 11/12/2015 23:59:59 CLS Outpatient JOANNA KELLY MD [facility] PREOP LEFT CARPEL TUNNEL [id number] 08/06/2014 12:10:00 08/06/2014 14:33:00 DIS Emergency BRIJESH IRVIN [facility] ER HIGH BP [id number] 04/22/2014 15:13:00 04/22/2014 17:13:00 DIS Emergency ASHWINI BENITEZ DO [facility] ER ELEVATED BLOOD PRESSURE [id number] 04/10/2014 11:50:00 04/11/2014 15:15:00 DIS Inpatient SANDRA MANLEY DO [facility] CSD CP,HTN [id number] 03/18/2014 16:37:00 03/18/2014 23:59:59 CLS Outpatient SANDRA MANLEY DO [facility] RAD PAIN IN DORSOL FOOT [id number] 04/19/2013 12:07:00 04/19/2013 23:59:59 CLS Outpatient SANDRA MANLEY DO [facility] RAD OA [id number] 04/12/2013 13:54:00 04/12/2013 23:59:59 CLS Outpatient SCARLET FITZPATRICK DO [facility] RAD LEG PAIN, CANT BEND LEG [id number] 06/25/2019 00:13:00 Document Registration [id number] 11/12/2015 10:39:00 Document Registration [id number] 07/23/2012 15:58:00 Document Registration [id number] 05/06/2011 06:15:00 Document Registration [id number] 05/28/2010 10:27:00 Document Registration
[2019-06-25 03:42] LABS: BASOPHILS % (AUTO) 0 % (0-10); EOSINOPHILS # (AUTO) 0.1 10^3/uL (0.0-0.3); EOSINOPHILS % (AUTO) 2 % (0-10); HEMATOCRIT 30 % (35-52); HEMOGLOBIN 9.3 G/DL (11.5-16.0); LYMPHOCYTES # (AUTO) 0.5 X 10^3 (1.0-4.0); LYMPHOCYTES % (AUTO) 7 % (12-44); MEAN CORPUSCULAR HEMOGLOBIN 25 PG (25-34); MEAN CORPUSCULAR HGB CONC 31 G/DL (32-36); MEAN CORPUSCULAR VOLUME 80 FL (80-99); MEAN PLATELET VOLUME 9.8 FL (7.4-10.4); MONOCYTES # (AUTO) 0.2 X 10^3 (0.0-1.0); MONOCYTES % (AUTO) 3 % (0-12); NEUTROPHILS # (AUTO) 6.6 X 10^3 (1.8-7.8); NEUTROPHILS % (AUTO) 88 % (42-75); PLATELET COUNT 244 10^3/uL (130-400); RED CELL DISTRIBUTION WIDTH 16.7 % (10.0-14.5); WHITE BLOOD COUNT 7.5 10^3/uL (4.3-11.0)
[2019-06-25 04:05] LABS: ALANINE AMINOTRANSFERASE 16 U/L (0-55); ALBUMIN 3.1 GM/DL (3.2-4.5); ALKALINE PHOSPHATASE 83 U/L (40-136); BILIRUBIN,TOTAL 0.1 MG/DL (0.1-1.0); BUN/CREATININE RATIO 14; CALCIUM 8.7 MG/DL (8.5-10.1); CARBON DIOXIDE 23 MMOL/L (21-32); CHLORIDE 101 MMOL/L (98-107); CREATININE SERUM 0.69 MG/DL (0.60-1.30); GFR ESTIMATED > 60; GLUCOSE 183 MG/DL (70-105); POTASSIUM 3.7 MMOL/L (3.6-5.0); SODIUM 138 MMOL/L (135-145); TOTAL PROTEIN 7.5 GM/DL (6.4-8.2)
[2019-06-25] MEDS ORDERED: RT-ALBUTEROL SULF 2.5 MG/3 ML PRE-MIX VIAL INH PRN (05:00)
[2019-06-25] MEDS ORDERED: D5 1/2 NS W/KCL 20 MEQ/L 1,000 ML IV SCH (05:15)
[2019-06-25] MEDS ORDERED: ACETAMINOPHEN 500 MG TAB (TYLENOL) PO PRN (05:15)
[2019-06-25] MEDS ORDERED: methylPREDNISolone 125 MG (Solu-MEDROL) VIAL IM ONE ×2 (05:15→06:00)
[2019-06-25] MEDS ORDERED: PIPERACILLIN/TAZO 4.5 GM/NS 100 ML IV ONE ×2 (05:15)
[2019-06-25] MEDS: D5 1/2 NS W/KCL 20 MEQ/L 1,000 ML IV SCH ×2 (05:28→16:27)
--- NOTE | 2019-06-25 07:26 | Diagnostic Imaging Report ---
Patient History: Shortness of breath. Technique: Single frontal view of the chest Comparison: Chest radiograph on 05/31/2019 FINDINGS: Compared to the prior exam, there is improved aeration in the right hemithorax. Patchy bibasilar opacities persist, which may represent infection or atelectasis. No focal mass. No large pleural effusion or pneumothorax. Stable enlarged cardiac silhouette. There is calcified aortic atherosclerotic plaque. Severe degenerative changes again seen in the bilateral glenohumeral joints, left greater than right. IMPRESSION: Improved aeration in the right hemithorax compared to the prior exam. Persistent bibasilar opacities may represent infection and/or atelectasis. Dictated by: Dictated on workstation # [id number]
[2019-06-25] MEDS: fentaNYL INJECTION 100 MCG/2 ML AMP IVP PRN ×3 (08:06→20:33)
--- NOTE | 2019-06-25 08:13 | History & Physical-Hospitalist ---
History of Present Illness HPI/Chief Complaint Pt is an 89yoCF with a PMH of dementia, HTN, who presented to the ER due to aspiration. She is unable to provide me any history at this time as she was preoccupied with her sheets. Per notes she was at a NH and ate a cracker and some milk and then it got stuck in her throat. On arrival here she slightly hypoxic requiring oxygen via nasal cannula. She was admitted for pneumonia. Of note on 05/31 she was here in our ED and intubated and transferred to [facility]. Source: patient Exam Limitations: clinical condition Date Seen 06/25/19 Time Seen by a Provider: 08:07 Attending Physician Antony Garcia DO PCP Antony Garcia DO Referring Physician Date of Admission Jun 25, 2019 at 00:45 Home Medications & Allergies Home Medications Reviewed patient Home Medication Reconciliation performed by pharmacy medication reconciliations appliance repair technician and/or nursing. Patients Allergies have been reviewed. Allergies Allergies Coded Allergies No Known Drug Allergies (Unverified07/23/12) Past Hglzjkr-Exdmev-Sopwwt Hx Past Med/Social Hx: Reviewed Nursing Past Med/Soc Hx Patient Social History Alcohol Use: Denies Use Recreational Drug Use: No 2nd Hand Smoke Exposure: No Recent Foreign Travel: No Contact w/other who traveled: No Recent Hopitalizations: No Recent Infectious Disease Expo: No Immunizations Up To Date Tetanus Booster (TDap): Unknown Pediatric: Yes Date of Pneumonia Vaccine: Aug 28, 1999 Date of Influenza Vaccine: Aug 28, 2015 Seasonal Allergies Seasonal Allergies: No Past Medical History Surgeries: Gallbladder, Hysterectomy, Orthopedic Cardiac: Hypertension, Irregular Heartbeat Menopausal Gastrointestinal: Gall Bladder Disease Musculoskeletal: Arthritis, Chronic Back Pain Endocrine: Hypothyroidsim, Diabetes, Non-Insulin dep Psychosocial: Anxiety History of Blood Disorders: No Family History Patient reports no known family medical history. Review of Systems ROS-Unable to Obtain: Dementia Constitutional: see HPI Physical Exam Physical Exam Vital Signs Vital Signs - First Documented 06/24/19 23:40 Temp 99.3 Pulse 124 Resp 24 B/P (MAP) 138/64 (88) Pulse Ox 90 O2 Delivery Nasal Cannula O2 Flow Rate 3.00 FiO2 90 Capillary Refill : Less Than 3 Seconds Height, Weight, BMI Height: 5'1.00" Weight: 156lbs. 4.0oz. 70.942668yy; 29.5 BMI Method:Stated General Appearance: No Apparent Distress, Chronically ill HEENT: Moist Mucous Membranes; No Scleral Icterus (L), No Scleral Icterus (R) Respiratory: No Accessory Muscle Use, No Respiratory Distress, Rhonci Cardiovascular: Regular Rate, Rhythm, No Murmur Gastrointestinal: Normal Bowel Sounds, Non Tender, Soft Genital/Rectal: Other (catheter in place) Extremity: Normal Capillary Refill, No Calf Tenderness, No Pedal Edema Neurologic/Psychiatric: Alert; No Aphasia; Disoriented (to place and time); No Facial Droop Skin: Normal Color, Warm/Dry Results Results/Procedures Labs Laboratory Tests 06/24/19 23:52 06/25/19 03:10 Patient resulted labs reviewed. Imaging: Reviewed Imaging Report Imaging Date of Exam: 06/25/19 CHEST 1 VIEW, AP/PA ONLY Patient History: Shortness of breath. Technique: Single frontal view of the chest Comparison: Chest radiograph on 05/31/2019 FINDINGS: Compared to the prior exam, there is improved aeration in the right hemithorax. Patchy bibasilar opacities persist, which may represent infection or atelectasis. No focal mass. No large pleural effusion or pneumothorax. Stable enlarged cardiac silhouette. There is calcified aortic atherosclerotic plaque. Severe degenerative changes again seen in the bilateral glenohumeral joints, left greater than right. IMPRESSION: Improved aeration in the right hemithorax compared to the prior exam. Persistent bibasilar opacities may represent infection and/or atelectasis. Assessment/Plan Admission Diagnosis Severe Sepsis, HAP Admission Status: Inpatient Order (span 2 midnights) Reason for Inpatient Admission: On oxygen, need IV abx, needs speech eval Assessment and Plan Severe Sepsis HAP Aspiratin HTN Plan: Continue abx Lactic improving Pulm consult Mat protocol Speech eval resume home meds once speech eval done Diagnosis/Problems Diagnosis/Problems (1) Severe sepsis Status: Acute (2) Pneumonia Status: Acute Qualifiers: Pneumonia type: aspiration pneumonia Aspiration pneumonia type: unspecified Laterality: bilateral Lung location: lower lobe of lung Qualified Codes: J69.0 - Pneumonitis due to inhalation of food and vomit (3) Aspiration into airway Qualifiers: Encounter type: initial encounter Qualified Codes: T17.908A - Unspecified foreign body in respiratory tract, part unspecified causing other injury, initial encounter (4) Dementia Status: Chronic Qualifiers: Dementia type: unspecified type Dementia behavioral disturbance: without behavioral disturbance Qualified Codes: F03.90 - Unspecified dementia without behavioral disturbance (5) Normocytic anemia Status: Chronic (6) Chronic pain Status: Chronic Qualifiers: Chronic pain type: chronic pain syndrome Qualified Codes: G89.4 - Chronic pain syndrome (7) Hypothyroidism Status: Chronic Qualifiers: Hypothyroidism type: unspecified Qualified Codes: E03.9 - Hypothyroidism, unspecified (8) Hypertension Status: Acute Qualifiers: Hypertension type: essential hypertension Qualified Codes: I10 - Essential (primary) hypertension Clinical Quality Measures DVT/VTE Risk/Contraindication: Risk Factor Score Per Nursin RFS Level Per Nursing on Admit: 4+=Very High SHAHIDA DICKERSON MD Jun 25, 2019 08:13
[2019-06-25] MEDS ORDERED: PIPERACILLIN/TAZOBACTAM (BULK) 3.375 GM in NS (IVPB) 100 ML IV SCH (09:00)
[2019-06-25] MEDS: RT-ALBUTEROL SULF 2.5 MG/3 ML PRE-MIX VIAL INH SCH (10:10)
[2019-06-25] MEDS: ENOXAPARIN 40 MG/0.4 ML (LOVENOX) SYR SC SCH (10:34)
--- NOTE | 2019-06-25 10:51 | NUR ---
Initial visit: pt was heard calling for the doctor. I responded reassuringly, introduced myself and gently asked the pt what she needed. The pt demonstrated anxiety, took my hand and said she was having difficulty breathing, then began coughing. Offered soothing touch and calming presence. Pt ceased coughing, stated she also needed a pain pill. I asked if she wanted prayer, and she welcomed this. We prayed together, after which point the pt demonstrated calmness. I relayed pt's requests to the desktop analyst.
--- NOTE | 2019-06-25 11:10 | NUR ---
PT C/O MEDIAL CP, EKG OBTAINED AND DR DICKERSON NOTIFIED OF FINDINGS. NEW ORDERS RECEIVED TO CONSULT DR DELAROSA.
--- NOTE | 2019-06-25 11:24 | NUR ---
DR DELAROSA NOTIFIED OF NEW CONSULT AND EKG SENT TO
[2019-06-25] MEDS: PIPERACILLIN/TAZOBACTAM (BULK) 4.5 GM in NS (IVPB) 100 ML IV SCH ×2 (11:57→18:00)
--- NOTE | 2019-06-25 14:15 | Occupational Therapy Eval ---
OT Evaluation-General/PLF Medical Diagnosis Admission Date Jun 25, 2019 at 00:45 Medical Diagnosis: pneumonia, sepsis, hypoxia Onset Date: Jun 25, 2019 Therapy Diagnosis Therapy Diagnosis: impaired ADLs and mobility Height/Weight Height (Feet): 5 Height (Inches): 1.00 Weight (Pounds): 156 Weight (Ounces): 4.0 Precautions Precautions/Isolations: Aspiration, Fall Prevention, Standard Precautions, Pressure Ulcer Safety Interventions: Bed Exit Alarm, Reorient-PRN Referral Referral Reason: Activity Tolerance, Self Care, Evaluation/Treatment, Strengthening/ROM Medical History Pertinent Medical History: DM, HTN Additional Medical History Surgeries: Gallbladder, Hysterectomy, Orthopedic Cardiac: Hypertension, Irregular Heartbeat Menopausal Gastrointestinal: Gall Bladder Disease Musculoskeletal: Arthritis, Chronic Back Pain Endocrine: Hypothyroidsim, Diabetes, Non-Insulin dep Psychosocial: Anxiety History of Blood Disorders: No Reviewed History: Yes Social History Home: [facility] ([facility] to [facility] [place] [facility] Entry Into Home: Ramp ADL-Prior Level of Function Therapy Code Descriptions/Definitions Functional [place] Measure: 0=Not Assessed/NA 4=Minimal Assistance 1=Total Assistance 5=Supervision or Setup 2=Maximal Assistance 6=Modified [place] 3=Moderate Assistance 7=Complete [place] Therapy Quality Codes: 6 Independent with activity with or without an assistive device 5 Patient requires set up or clean up by helper. Patient completes activity by themselves 4 Supervision or touching assist (CGA). [place] provide cues , steadying assist 3 The helper provides less than half the effort to complete the activity 2 The helper provides more than half the effort to complete the activity 1 Dependent. The helper does all the effort to complete an activity 7 Patient refused to complete or attempt activity 9 The patient did not perform the activity before the current illness or injury 88 Not attempted due to Medical conditions or safety concerns Functional Abilities and Goals: Independent: Patient completed the activities by him/herself, with or without an assistive device, with no assistance from a helper. Needed Some Help: Patient needed partial assistance from another person to complete activities. Dependent: A helper completed the activities for the patient. Unknown: Not Applicable: ADL PLOF Comments pt from [facility] [place] home. pt is poor historian. Self Care: Needed Some Help Functional Cognition: Needed Some Help Drive Self: No OT Current Status Subjective pt laying in bed upon OT arrival in no apparent distress . pt agreed to OT evaluation session, pt reports no pain. Mental Status/Objective Patient Orientation: Person (pt only oriented to name ) Attachments: IV, Oxygen (1L NC), Telemetry Current Glasses/Contacts: Yes Hearing Aids: No Dentures/Partials: No Hand Dominance: Right Upper Extremity ROM R shoulder flex 80 degrees Left shoulder flex 100 degrees loren elbow and wrist WFL Upper Extremity Coordination decrease opposition Loren hands decrease finger to nose test Upper Extremity Sensation light touch WNL Upper Extremity Strength 2-/5 MMT ADL-Treatment Therapy Code Descriptions/Definitions Functional [place] Measure: 0=Not Assessed/NA 4=Minimal Assistance 1=Total Assistance 5=Supervision or Setup 2=Maximal Assistance 6=Modified [place] 3=Moderate Assistance 7=Complete [place] Therapy Quality Codes: 6 Independent with activity with or without an assistive device 5 Patient requires set up or clean up by helper. Patient completes activity by themselves 4 Supervision or touching assist (CGA). [place] provide cues , steadying assist 3 The helper provides less than half the effort to complete the activity 2 The helper provides more than half the effort to complete the activity 1 Dependent. The helper does all the effort to complete an activity 7 Patient refused to complete or attempt activity 9 The patient did not perform the activity before the current illness or injury 88 Not attempted due to Medical conditions or safety concerns Eating (FIM): 5 (required set oup of all items secodnary to decrease FMC ) Grooming (FIM): 5 (set up to wash face, comb hair with strong VC ) Lower Body Dressing (FIM): 1 (pt demo ability to danielle left sock but required assist to danielle loren socks and doff right sock. ) Transfers (B, C, W/C) (FIM): 3 (bed to chiar. stnad piviot ) Other Treatments pt required MOD A to perform supine to sit and MIN A to maintain static seated balance. pt required MOD A to perform stand pivot transfer to chair. chair alarm placed on chair secondary to NSG request. pt sitting in recliner chair post OT Session, call light within reach, NSG aware of pt location and TX session. all needs met. Education OT Patient Education: Modified ADL techniques, Progress toward Goal/Update tx plan, Purpose of tx/functional activities, Transfer techniques Teaching Recipient: Patient Teaching Methods: Demonstration, Discussion Response to Teaching: Reinforcement Needed OT Short Term Goals Short Term Goals Bathing(FIM): 3 Lower Body Dressing(FIM): 3 Toileting(FIM): 3 Transfers (B,C,W/C) (FIM): 4 Toilet/Commode Transfer(FIM): 4 1=Demonstrate adherence to instructed precautions during ADL tasks. 2=Patient will verbalize/demonstrate understanding of assistive devices/modifications for ADL. 3=Patient will improve strength/tolerance for activity to enable patient to perform ADL's. OT Halfway Goals Commercial Property Administrator Goals Eating (FIM): 6 Grooming(FIM): 6 Bathing(FIM): 5 Toileting(FIM): 5 Transfers (B,C,W/C) (FIM): 5 Toilet/Commode Transfer(FIM): 5 Additional Goals: 1-Demonstrate ADL Tasks, 2-Verbalize Understanding, 3-ImproveStrength/[place]khil 1=Demonstrate adherence to instructed precautions during ADL tasks. 2=Patient will verbalize/demonstrate understanding of assistive devices/modifications for ADL. 3=Patient will improve strength/tolerance for activity to enable patient to per form ADL's. OT Education/Plan Problem List/Assessment Assessment: Decreased Activ Tolerance, Decreased Safety Aware, Decreased UE Strength, Dependent Transfers, Impaired Bed Mobility, Impaired Cognition, Impair ed Coordination, Impaired Funct Balance, Impaired I ADL's, Impaired Self-Care Skills, Restricted Funct UE ROM pt present with functional limitations affecting areas of ADLs and functional transfers with the above mention deficits. pt would benefit from OT services to in crease independence with ADLs and functional transfers. recommended d/c SNF to continue addressing deficits when d/c from hospital. Discharge Recommendations Plan/Recommendations: Continue POC Therapy D/C Recommendations: 24 hr Supervision, Usp (TCU/NH) Treatment Plan/Plan of Care Treatment,Training & Education: Yes Patient would benefit from OT for education, treatment and training to promote independence in ADL's, mobility, safety and/or upper extremity function for ADL's. Plan of Care: ADL Retraining, Caregiver Training, Functional Mobility, Group Exercise/Act as Ind, UE Funct Exercise/Act Treatment Duration: Jul 09, 2019 Frequency: 5 times per week Estimated Hrs Per Day: .25 hour per day Agreement: Yes Rehab Potential: Guarded Time/GCodes Start Time: 14:56 Stop Time: 15:23 Billed Treatment Time EVM 17 minutes ADL 10 minutes, 1 unit AYANA GUAN OT Jun 25, 2019 14:15
--- NOTE | 2019-06-25 16:13 | Physical Therapy Evaluation ---
PT Evaluation-General Medical Diagnosis Admission Date Jun 25, 2019 at 00:45 Medical Diagnosis: pneumonia, sepsis, hypoxia Onset Date: Jun 25, 2019 Therapy Diagnosis Therapy Diagnosis: debility/weakness Height/Weight Height (Feet): 5 Height (Inches): 1.00 Weight (Pounds): 156 Weight (Ounces): 4.0 Precautions Precautions/Isolations: Aspiration, Fall Prevention, Standard Precautions, Pressure Ulcer Referral Physician: Ximena Reason for Referral: Evaluation/Treatment Medical History Pertinent Medical History: DM, Dementia, HTN, Hypothroidism Current History ER secondary to aspiration Reviewed History: Yes Social History Home: Fdc (accord. to [facility] [place] ) Entry Into Home: Ramp Prior/Core FIM Prior Level of Function Therapy Code Descriptions/Definitions Functional [place] Measure: 0=Not Assessed/NA 4=Minimal Assistance 1=Total Assistance 5=Supervision or Setup 2=Maximal Assistance 6=Modified Platte 3=Moderate Assistance 7=Complete Platte Therapy Quality Codes: 6 Independent with activity with or without an assistive device 5 Patient requires set up or clean up by helper. Patient completes activity by themselves 4 Supervision or touching assist (CGA). Bapchule provide cues , steadying assist 3 The helper provides less than half the effort to complete the activity 2 The helper provides more than half the effort to complete the activity 1 Dependent. The helper does all the effort to complete an activity 7 Patient refused to complete or attempt activity 9 The patient did not perform the activity before the current illness or injury 88 Not attempted due to Medical conditions or safety concerns Functional Abilities and Goals: Independent: Patient completed the activities by him/herself, with or without an assistive device, with no assistance from a helper. Needed Some Help: Patient needed partial assistance from another person to complete activities. Dependent: A helper completed the activities for the patient. Unknown: Not Applicable: Bed Mobility: 4 Transfers (B,C,W/C) (FIM): 4 Gait: 2 Indoor Mobility (Ambulation): Needed Some Help Stairs: Not Applicalbe Prior Devices Use: Manual wheelchair, Walker PT Evaluation-Current Subjective Patient agrees to PT. Pain Numeric Pain Scale: 0-No Pain Location: No Pain Reported Objective Patient Orientation: Confused Attachments: Oxygen, Eaton Catheter, IV ROM/Strength ROM Lower Extremities bilateral LE WFL Strength Lower Extremities 3+/5 grossly bilateral LE Integumentary/Posture Integumentary refer to nursing notes Bladder Incontinence: Eaton Cath Posture WFL Neuromuscular (Tone, Coordination, Reflexes) WFL Sensory Vision: Functional Hearing: Impaired Hand Dominance: Right Sensation Right Lower Extremit: Impaired Sensation Left Lower Extremity: Impaired Transfers Therapy Code Descriptions/Definitions Functional [place] Measure: 0=Not Assessed/NA 4=Minimal Assistance 1=Total Assistance 5=Supervision or Setup 2=Maximal Assistance 6=Modified Platte 3=Moderate Assistance 7=Complete [place] Transfers (B, C, W/C) (FIM): 4 Scootin Supine to/from Sit: 4 Sit to/from Stand: 4 Gait Mode of Locomotion: Both Anticipated Mode of Locomotion: Both Gait (FIM): 1 Distance (FIM): 1=up to 49 ft Distance: 5' Gait Level of Assist: 4 Gait Persons Needed: 1 Gait Assistive Device: FWW Balance Sitting Static: Normal Sitting Dynamic: Normal Standing Static: Fair Standing Dynamic: Fair Assessment/Needs 89 y.o. female, will benefit from skilled PT to address functional strength and mobility to improve current LOF to safely return to ID at maximum LOF. Rehab Potential: Fair PT Short Term Goals Short Term Goals Transfers (B,C,W/C) (FIM): 4 PT Pipe Line Repairer Goals Pipe Line Repairer Goals PT Pipe Line Repairer Goals Time Frame: Jul 02, 2019 Transfers (B,C,W/C) (FIM): 5 Gait (FIM): 1 Gait distance (FIM): 1=up to 49 ft Distance: 45' Gait Level of Assist: 4 Gait Assistive Device: FWW PT Plan Problem List Problem List: Activity Tolerance, Functional Strength, Safety, Balance, Gait, Transfer, Bed Mobility Treatment/Plan Treatment Plan: Continue Plan of Care Treatment Plan: Bed Mobility, Education, Functional Activity Akhil, Functional Strength, Gait, Safety, Therapeutic Exercise, Transfers Treatment Duration: Jul 02, 2019 Frequency: 6 times per week Estimated Hrs Per Day: .25 hour per day Patient and/or Family Agrees t: Yes Discharge Recommendations Therapy D/C Recommendations: Fdc Placement, Jail (TCU/NH) Time/GCodes Time In: 1550 Time Out: 1605 Total Billed Treatment Time: 15 Total Billed Treatment 1 visit EVModC 15 min CB NEW PT Jun 25, 2019 16:13
--- NOTE | 2019-06-25 16:22 | ST Dysphagia Evaluation ---
Speech Evaluation-General Medical Diagnosis pneumonia, sepsis, hypoxia Onset Date: Jun 25, 2019 Therapy Diagnosis Therapy Diagnosis: dysphagia Precautions Precautions: Fall, Pressure Ulcer, Aspiration Precautions/Isolations: Aspiration, Fall Prevention, Standard Precautions, Pressure Ulcer Referral Referring Physician: Dr. Sommer Reason for Referral: Evaluation/Treatment Medical History Pertinent Medical History: DM, Dementia, HTN, Hypothroidism dementia, DM, HTN, hypothyroidism Current History pneumonia Reviewed History: Yes Social History Home: Correction Current Living Status: Speech PLF/Current-Dysphagia Prior Level of Function patient was on a diet of nectar thin liquids and regular consistencies Subjective patient was alert, but complained of pain. patient was cooperative during dysphagia bedside evaluation Cognitive Status Patient Orientation: Eyes Open, Mumbles Oral Motor Skills Dentition: Edentalous Current Food Consistancy: Regular, [place] Liquids Ability to Follow Directions: Fair Oral Expression Ability: Mild Impairment Voice Voice Phonatory-Based Quality: Weak Voice Pitch: Normal Voice Loudness: Moderately Soft/Quiet Face Facial Symmetry: Symmetrical Oral-Facial Assessment Oral-Facial Dentition: Normal Labial Seal Description: Normal Lingual Protrusion: Normal Lingual ROM: Normal Lingual Strength: Normal Volitional Dry Swallow: Yes Voluntary Cough: Yes Can Clear Throat Volitionally: Yes Productive Cough: Yes Productive Throat Clear: No Prod Throat Clearing Comments: required use of suction Dysphagia Evaluation Consistencies Presented: Regular, Thin Liquid, Mechanical Soft, [place] Thick Liquid, Pureed Pharyngeal Phase: Clears Throat Funct. Velo/Pharyngeal Symptom: Cough After Swallow Dietary Recommendations: Regular Liquid Recommendations: [place] Consistancy Swallowing Precautions: Alternate Liquids/Solids, Decreased Bolus 1/2 Tsp, Liquids from Spoon, Small Bites and Sips, Sitting Upright 90 Degrees Dysphagia Evaluation Summary Patient participated in dysphagia evaluation with 1/2 tsp trials of banana, applesauce, and cracker as well as thin and nectar thick liquids via spoon. Patient coughed follow swallow of thin liquids and required use of suction. Patient demonstrated tolerance of food trials and nectar thick liquids demons trating no overt s/s aspiration. Patient was educated on safe swallow strategies and positioning including sitting upright at 90 degrees, taking small bites, and alternating bites with sips of liquid. Barriers to Learning cognitive-communication Speech Short Term Goals Short Term Goals Short Term Goals The patient will tolerate least restrictive diet level without s/s aspiration at 90% or greater. Patient will utilize compensatory strategies as trained for safe oral intake at 90% or greater with minimal verbal cues. Comprehension: 5 Expression: 5 Social Interaction: 6 Problem Solvin Memory: 5 Speech Mastercam Programmer Goals Penitentiary Goals Patient will maintain adequate nutrition/hydration via safe, effective swallow function Comprehension: 5 Expression: 5 Social Interaction: 6 Problem Solvin Memory: 5 Speech-Plan Patient/Family Goals Patient/Family Goals: [facility] Treatment Plan Speech Therapy Treatment Plan: Continue Plan of Care Patient presents with oropharyngeal dysphagia. Based upon bedside evaluation, patient tolerated nectar thick liquids and regular consistencies. Skilled ST is recommended to target swallow strategies and for advancement of diet. Treatment Duration: Jul 09, 2019 Frequency: 3 times per week Estimated Hrs Per Day: .25 hour per day Rehab Potential: Fair Barriers to Learning: cognitive communication, oropharyngeal dysphagia Pt/Family Agrees to Plan: Yes Safety Risks/Education Teaching Recipient: Patient Teaching Methods: Discussion Response to Teaching: Verbalize Understanding Education Topics Provided: safe swallow strategies and ST services Time Speech Therapy Time In: 11:30 Speech Therapy Time Out: 11:45 Total Billed Time: 15 Billed Treatment Time 1FERMIN SEAN ST Jun 25, 2019 16:22
[2019-06-25] MEDS: ACETAMINOPHEN 500 MG TAB (TYLENOL) PO PRN (16:26)
--- NOTE | 2019-06-25 16:30 | NUR ---
PT HAS RIGHT NARE NOSE BLEED, PT PERSISTENT ABOUT BLOWING NOSE DURING THIS TIME. DR DICKERSON AT BEDSIDE. THIS RN APPLYING PRESSURE TO NARES THEN NOSE CLAMP APPLIED.
[2019-06-25] MEDS ORDERED: LISI40TA PO (16:47)
[2019-06-25] MEDS ORDERED: DILTIAZEM 180 MG (CARDIZEM CD) CAP PO NR (17:15)
--- NOTE | 2019-06-25 17:24 | NUR ---
DR FLOYD INFORMED OF CONSULT.
[2019-06-25] MEDS: oxyCODONE/APAP 10/325MG (PERCOCET 10) TABLET PO PRN (17:56)
--- NOTE | 2019-06-25 18:43 | NUR ---
PT APPEARED TO HAVE RHYTHM CHANGE ON MONITOR EKG OBTAINED AND GIVEN TO DR DELAROSA.
[2019-06-25] MEDS: BENZONATATE 100 MG (TESSALON) CAPSULE PO SCH (20:33)
[2019-06-25] MEDS ORDERED: risperiDONE 0.25 MG (RisperDAL) TAB PO SCH (21:00)
--- NOTE | 2019-06-25 22:10 | Consultation-Cardiology ---
HPI-Cardiology Cardiology Consultation: Date of Consultation 06/25/19 Date of Admission Attending Physician Antony Garcia DO Admitting Physician Antony Garcia DO Consulting Physician Hamzah THOMAS MD HPI: Time Seen by a Provider: 08:45 Chief Complaint: Chest pain This is a 89-year-old lady with history of dementia, hypertension who previously presented to our hospital earlier in the month due to aspiration pneumonia. She was intubated and transferred to [facility]. She was discharged and presented again with possible aspiration pneumonia and sepsis. Cardiology was consulted because she complained of transient chest pain. Review of Systems-Cardiology Review of Systems Constitutional: As described under HPI; No As described under HPI, No no symptoms reported, No chills, No fever, No lightheadedness Eyes: No As described under HPI, No no symptoms reported, No blindness, No blur red vision, No contact lenses, No drainage, No decreased acuity, No foreign body sensation, No pain, No vision change Ears/Nose/Throat: No As described under HPI, No no symptoms reported, No chronic hearing loss, No ear discharge, No ear pain, No nasal drainage, No ulcerations Respiratory: No no symptoms reported; As described under HPI; No As described under HPI, No cough, No orthopnea; shortness of breath; No SOB with excertion Cardiovascular: No no symptoms reported; As described under HPI; No As described under HPI; chest pain; No edema, No irregular heart rate, No lightheadedness, No palpitations Gastrointestinal: No no symptoms reported, No As described under HPI, No abdomen distended, No abdominal pain, No blood streaked bowels, No constipation, No diarrhea, No nausea, No vomiting, No stool coloration changes Genitourinary: No As described under HPI, No burning, No dysuria, No discharge, No frequency, No flank pain, No hematuria, No urgency : Yes : No Skin: No rash, No skin related problems, No ulcerations Psychiatric/Neurological: No anxiety, No depression, No seizure, No focal weakness, No syncope Hematologic: No bleeding abnormalities POG-Ctnvio-Lnskos Hx Patient Social History Alcohol Use: Denies Use Recreational Drug Use: No 2nd Hand Smoke Exposure: No Recent Foreign Travel: No Recent Infectious Disease Expo: No Hospitalization with Isolation: Denies Immunizations Up To Date Tetanus Booster (TDap): Unknown Date of Pneumonia Vaccine: Aug 28, 1999 Date of Influenza Vaccine: Aug 28, 2015 Past Medical History PMH As described under Assessment. Family Medical History Family History: Patient reports no known family medical history. Allergies and Home Medications Allergies Coded Allergies: No Known Drug Allergies (Unverified , 07/23/12) Home Medications Aspirin 81 Mg Tabec, 81 MG PO DAILY, (Reported) Citalopram Hydrobromide 10 Mg Tablet, 10 MG PO DAILY, (Reported) Diltiazem HCl 180 Mg Capsule.er, 360 MG PO DAILY, (Reported) TAKE 2 (180MG) TABS Ibuprofen 800 Mg Tablet, 800 MG PO Q8H PRN for PAIN Prescribed by: CAMPBELL LEMUS on 11/19/15 1030 Levothyroxine Sodium 50 Mcg Tablet, 50 MCG PO DAILY, (Reported) Lisinopril 40 Mg Tablet, 40 MG PO DAILY, (Reported) Nabumetone 750 Mg Tablet, 750 MG PO BID, (Reported) Tramadol HCl 50 Mg Tablet, 50 MG PO Q4H PRN for PAIN Prescribed by: CAMPBELL LEMUS on 11/19/15 1030 Patient Home Medication List Home Medication List Reviewed: Yes Physical Exam-Cardiology Physical Exam Vital Signs/I&O 06/25/19 06/25/19 06/25/19 06/25/19 10:10 12:00 12:00 12:03 Temp 97.9 Pulse 116 Resp 22 B/P (MAP) 134/65 (88) Pulse Ox 99 90 O2 Delivery Nasal Cannula Nasal Cannula Nasal Cannula O2 Flow Rate 4.00 4.00 4.00 06/25/19 06/25/19 06/25/19 06/25/19 13:00 15:48 16:00 16:00 Temp 98.0 Pulse 117 Resp 25 B/P (MAP) 138/65 (89) Pulse Ox 100 O2 Delivery Nasal Cannula Nasal Cannula O2 Flow Rate 1.00 1.00 06/25/19 06/25/19 06/25/19 20:00 20:00 21:50 Temp 98.2 Pulse 131 108 Resp 24 16 B/P (MAP) 149/83 (105) Pulse Ox 100 97 O2 Delivery Nasal Cannula Nasal Cannula O2 Flow Rate 1.00 2.00 Capillary Refill : Less Than 3 Seconds Constitutional: appears stated age; No apparent distress HEENT: PERRL; No discharge; hearing is well preserved, oral hygience is good; No ulceration, No xanthelasmas are seen Neck: No carotid bruit; carotid pulses are 2 + bilaterally Respiratory: chest is bilaterally symmetric, crackles, rhonchi Cardiovascular: regular rate-rhythm; No irregularly irregular, No extra beats, No parasternal heave is noted, No JVD, No edema, No bradycardia; tachycardia; No point of maximal impulse, No cardiac thrills are palpable; S1 and S2; No gallop/S3, No gallop/S4, No diastolic murmur, No systolic murmur, No friction ru b, No click, No other Gastrointestinal: No tender, No soft, No round, No distended, No pulsatile mass, No organomegaly, No guarding, No rebound, No tenderness, No hernia, No mass, No audible bowel sounds, No abnormal bowel sounds, No abdominal bruits, No spleenomegaly, No other Rectal: deferred Extremities: No normal range of motion, No non-tender, No normal inspection, No pedal edema, No calf tenderness, No normal capillary refill, No pelvis stable, No calf tenderness, No inflammation, No pedal edema, No slow capillary refill, No swelling, No other, No abrasion, No clubbing, No cyanosis, No ecchymosis, No laceration, No no lower extremity edema bilateral, No significant edema, No tenderness, No wound Neurologic/Psychiatric: alert, power is 5/5 both on sides Skin: No rash, No ulcerations Data Review Labs Laboratory Tests 06/24/19 23:52: White Blood Count 7.2, Red Blood Count 3.99L, Hemoglobin 9.7L, Hematocrit 32L, Mean Corpuscular Volume 80, Mean Corpuscular Hemoglobin 24L, Mean Corpuscular Hemoglobin Concent 31L, Red Cell Distribution Width 16.7H, Platelet Count 274, Mean Platelet Volume 9.3, Neutrophils (%) (Auto) 59, Lymphocytes (%) (Auto) 24, Monocytes (%) (Auto) 9, Eosinophils (%) (Auto) 7, Basophils (%) (Auto) 1, Neutrophils # (Auto) 4.3, Lymphocytes # (Auto) 1.7, Monocytes # (Auto) 0.7, Eosinophils # (Auto) 0.5H, Basophils # (Auto) 0.0, Prothrombin Time 19.9H, INR Comment 1.6H, Activated Partial Thromboplast Time 37H, Sodium Level 137, Potassium Level 3.7, Chloride Level 97L, Carbon Dioxide Level 24, Anion Gap 16H, Blood Urea Nitrogen 12, Creatinine 0.80, Estimat Glomerular Filtration Rate > 60, BUN/Creatinine Ratio 15, Glucose Level 200H, Lactic Acid Level 3.08*H, Calcium Level 9.4, Corrected Calcium 9.9, Magnesium Level 1.5L, Total Bilirubin 0.2, Aspartate Amino Transf (AST/SGOT) 21, Alanine Aminotransferase (ALT/SGPT) 17, Alkaline Phosphatase 90, Troponin I < 0.028, B-Type Natriuretic Peptide 112.9H, Total Protein 8.2, Albumin 3.4 06/25/19 01:10: Urine Color YELLOW, Urine Clarity CLEAR, Urine pH 6, Urine Specific [place] 1.020, Urine Protein NEGATIVE, Urine Glucose (UA) NEGATIVE, Urine Ketones NEGATIVE, Urine Nitrite NEGATIVE, Urine Bilirubin NEGATIVE, Urine Urobilinogen NORMAL, Urine Leukocyte Esterase NEGATIVE, Urine RBC (Auto) NEGATIVE, Urine RBC NONE, Urine WBC NONE, Urine Squamous Epithelial Cells 5-10, Urine Crystals NONE, Urine Bacteria NEGATIVE, Urine Casts NONE, Urine Mucus NEGATIVE, Urine Culture Indicated CULTURE PENDING 06/25/19 01:40: Lactic Acid Level 2.74*H 06/25/19 02:51: Glucometer 203H 06/25/19 03:10: White Blood Count 7.5, Red Blood Count 3.78L, Hemoglobin 9.3L, Hematocrit 30L, Mean Corpuscular Volume 80, Mean Corpuscular Hemoglobin 25, Mean Corpuscular Hemoglobin Concent 31L, Red Cell Distribution Width 16.7H, Platelet Count 244, Mean Platelet Volume 9.8, Neutrophils (%) (Auto) 88H, Lymphocytes (%) (Auto) 7L, Monocytes (%) (Auto) 3, Eosinophils (%) (Auto) 2, Basophils (%) (Auto) 0, Neutrophils # (Auto) 6.6, Lymphocytes # (Auto) 0.5L, Monocytes # (Auto) 0.2, Eosinophils # (Auto) 0.1, Basophils # (Auto) 0.0, Sodium Level 138, Potassium Level 3.7, Chloride Level 101, Carbon Dioxide Level 23, Anion Gap 14, Blood Urea Nitrogen 10, Creatinine 0.69, Estimat Glomerular Filtration Rate > 60, BUN/Creatinine Ratio 14, Glucose Level 183H, Calcium Level 8.7, Corrected Calcium 9.4, Total Bilirubin 0.1, Aspartate Amino Transf (AST/SGOT) 22, Alanine Aminotransferase (ALT/SGPT) 16, Alkaline Phosphatase 83, Total Protein 7.5, Albumin 3.1L, Procalcitonin 0.05 06/25/19 12:25: Troponin I < 0.028 06/25/19 17:52: Troponin I < 0.028 Microbiology 06/25/19 Blood Culture - Preliminary, Resulted No growth 06/24/19 Gram Stain - Final, Resulted 06/24/19 Sputum Culture, Resulted Pending ECG Impression ECG Initial ECG Rhythm: S.Tach Comment no acute ST-T wave abnormalities. A/P-Cardiology Assessment/Admission Diagnosis Aspiration pneumonia, Dementia, Hypertension, Chest pain Plan Aspiration pneumonia, lactic acidosis, sepsis. Broad-spectrum IV antibiotics. Dementia, Chest pain. Temporary chest pain. When I saw the patient she was not having any further chest pain. Serial troponin are negative. EKG does not reveal any acute ST-T wave abnormalities. Echocardiogram will be recommended. Hypertension: Can start gradually outpatient medication when patient is more stable. Thank you for your consultation. Please call me if you have any questions. Mike Thomas MD, FACP, FACC, FSCAI, FHRS, CCDS Interventional Cardiology Cardiac Electrophysiology Vascular Medicine and Endovascular Interventions Clinical Quality Measures DVT/VTE Risk/Contraindication: Risk Factor Score Per Nursin RFS Level Per Nursing on Admit: 4+=Very High Hamzah THOMAS MD Jun 25, 2019 22:10
[2019-06-26] VITALS (8 sets, daily range): BP systolic 98–140; BP diastolic 40–71
[2019-06-26] MEDS: RT-ALBUTEROL SULF 2.5 MG/3 ML PRE-MIX VIAL INH SCH ×5 (01:06→19:30)
[2019-06-26] MEDS: ACETAMINOPHEN 500 MG TAB (TYLENOL) PO PRN (01:47)
[2019-06-26] MEDS: oxyCODONE/APAP 10/325MG (PERCOCET 10) TABLET PO PRN ×3 (01:56→16:59)
[2019-06-26] MEDS: fentaNYL INJECTION 100 MCG/2 ML AMP IVP PRN ×2 (03:14→21:38)
[2019-06-26] MEDS: PIPERACILLIN/TAZOBACTAM (BULK) 4.5 GM in NS (IVPB) 100 ML IV SCH ×3 (03:15→18:11)
[2019-06-26 03:43] LABS: BASOPHILS % (AUTO) 0 % (0-10); EOSINOPHILS % (AUTO) 0 % (0-10); HEMATOCRIT 30 % (35-52); HEMOGLOBIN 9.1 G/DL (11.5-16.0); LYMPHOCYTES # (AUTO) 0.8 X 10^3 (1.0-4.0); LYMPHOCYTES % (AUTO) 8 % (12-44); MEAN CORPUSCULAR HEMOGLOBIN 24 PG (25-34); MEAN CORPUSCULAR HGB CONC 30 G/DL (32-36); MEAN CORPUSCULAR VOLUME 81 FL (80-99); MONOCYTES # (AUTO) 0.6 X 10^3 (0.0-1.0); MONOCYTES % (AUTO) 6 % (0-12); NEUTROPHILS # (AUTO) 8.3 X 10^3 (1.8-7.8); NEUTROPHILS % (AUTO) 85 % (42-75); PLATELET COUNT 257 10^3/uL (130-400); RED CELL DISTRIBUTION WIDTH 17.1 % (10.0-14.5); WHITE BLOOD COUNT 9.7 10^3/uL (4.3-11.0)
[2019-06-26 03:58] LABS: BUN/CREATININE RATIO 20; CALCIUM 9.1 MG/DL (8.5-10.1); CARBON DIOXIDE 23 MMOL/L (21-32); CHLORIDE 105 MMOL/L (98-107); GFR ESTIMATED > 60; GLUCOSE 145 MG/DL (70-105); POTASSIUM 4.1 MMOL/L (3.6-5.0); SODIUM 140 MMOL/L (135-145)
--- NOTE | 2019-06-26 06:15 | Pulmonary Consultation ---
History of Present Illness History of Present Illness Date of Consultation 06/26/19 06:10 Time Seen by Provider: 07:04 Date of Admission History of Present Illness 89yo poor historian with hx of intubation and transfer to [facility] 05/31 secondary to us being on diversion. She also has a hx of dementia, aspiration, CVA presented to ED secondary to aspiration. Pt was found to be hypoxic upon arrival and required oxygen via a NC. Pt was admitted to ICU with aspiration pna. Unable to obtain ROS secondary to patients MS. Barajas am consulted for pulmonary management. Allergies and Home Medications Allergies Coded Allergies: No Known Drug Allergies (Unverified , 07/23/12) Home Medications Aspirin 81 Mg Tabec, 81 MG PO DAILY, (Reported) Citalopram Hydrobromide 10 Mg Tablet, 10 MG PO DAILY, (Reported) Diltiazem HCl 180 Mg Capsule.er, 360 MG PO DAILY, (Reported) TAKE 2 (180MG) TABS Ibuprofen 800 Mg Tablet, 800 MG PO Q8H PRN for PAIN Prescribed by: CAMPBELL LEMUS on 11/19/15 1030 Levothyroxine Sodium 50 Mcg Tablet, 50 MCG PO DAILY, (Reported) Lisinopril 40 Mg Tablet, 40 MG PO DAILY, (Reported) Nabumetone 750 Mg Tablet, 750 MG PO BID, (Reported) Tramadol HCl 50 Mg Tablet, 50 MG PO Q4H PRN for PAIN Prescribed by: CAMPBELL LEMUS on 11/19/15 1030 Past Qwpyvvr-Ywjnry-Pfyytx Hx Past Med/Social Hx: Reviewed Nursing Past Med/Soc Hx Patient Social History Alcohol Use: Denies Use Recreational Drug Use: No 2nd Hand Smoke Exposure: No Recent Foreign Travel: No Contact w/Someone Who Travel: No Recent Infectious Disease Expo: No Recent Hopitalizations: No Physical Abuse: No Sexual Abuse: No Mistreated: No Fear: No Immunizations Up To Date Tetanus Booster (TDap): Unknown PED Vaccines UTD: Yes Date of Pneumonia Vaccine: Aug 28, 1999 Date of Influenza Vaccine: Aug 28, 2015 Seasonal Allergies Seasonal Allergies: No Past Medical History Surgeries: Yes Gallbladder, Hysterectomy, Orthopedic Respiratory: Yes Sleep Apnea Cardiac: Yes Hypertension, Irregular Heartbeat 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 Review of Systems Time Seen by Provider: 07:07 Sepsis Event Evaluation Height, Weight, BMI Height: 5'1.00" Weight: 156lbs. 4.0oz. 70.234553ly; 29.5 BMI Method:Stated Exam Exam Vital Signs Date Time Temp Pulse Resp B/P (MAP) Pulse Ox O2 Delivery O2 Flow Rate FiO2 06/26/19 04:20 Nasal Cannula 2.00 06/26/19 04:00 93 15 98/47 (64) 94 Nasal Cannula 2.00 06/26/19 03:14 97.3 06/26/19 01:56 97.3 06/26/19 01:00 92 06/26/19 00:31 Nasal Cannula 2.00 06/26/19 00:00 88 16 100/40 (60) 96 Nasal Cannula 2.00 06/25/19 21:50 97 Nasal Cannula 4.00 06/25/19 21:50 108 16 97 Nasal Cannula 2.00 06/25/19 20:32 Nasal Cannula 2.00 06/25/19 20:00 98.2 06/25/19 20:00 131 24 149/83 (105) 100 Nasal Cannula 1.00 06/25/19 19:00 119 06/25/19 16:00 98.0 06/25/19 16:00 25 138/65 (89) 100 Nasal Cannula 1.00 06/25/19 15:48 Nasal Cannula 1.00 06/25/19 13:00 117 06/25/19 12:03 Nasal Cannula 4.00 06/25/19 12:00 97.9 06/25/19 12:00 116 22 134/65 (88) 90 Nasal Cannula 4.00 06/25/19 10:10 99 Nasal Cannula 4.00 06/25/19 09:50 97 Nasal Cannula 4.00 06/25/19 08:13 97 Nasal Cannula 4.00 06/25/19 08:07 96.4 06/25/19 08:00 107 120/57 (78) 93 Nasal Cannula 4.00 06/25/19 07:00 112 I & O 06/26/19 07:00 Intake Total 1780 ml Output Total 1125 ml Balance 655 ml Height & Weight Height: 5'1.00" Weight: 156lbs. 4.0oz. 70.749684ge; 29.5 BMI Method:Stated General Appearance: No Apparent Distress, Anxious, Chronically ill HEENT: PERRL/EOMI, Pharynx Normal Neck: Full Range of Motion, Non Tender, Supple Respiratory: Chest Non Tender, No Accessory Muscle Use, No Respiratory Distress, Decreased Breath Sounds Cardiovascular: Regular Rate, Rhythm, No Edema, No Gallop Capillary Refill: Less Than 3 Seconds Gastrointestinal: normal bowel sounds, non tender, soft, no organomegaly Extremity: Normal Capillary Refill, No Pedal Edema Neurologic/Psychiatric: Alert, Disoriented Skin: Normal Color, Warm/Dry Lymphatic: No Adenopathy Results Lab Laboratory Tests 06/24/19 23:52 06/25/19 03:10 06/26/19 03:30 Assessment/Plan Assessment/Plan Aspiration pneumonia -Currently on a dysphagia diet. RN states pt still appears to be aspirating -Check barium swallow -Speech therapy has already evaluated pt Persistent cough -Continue Zosyn -Increase SVNs from BID (MAT protocol) to QID -Start IS -Aspiration precautions Dementia HAP HTN MARISELA FLOYD DO Jun 26, 2019 06:15
[2019-06-26] MEDS: LEVOTHYROXINE 50 MCG (LEVOTHROID) TAB PO SCH (06:55)
[2019-06-26] MEDS: BENZONATATE 100 MG (TESSALON) CAPSULE PO SCH ×3 (06:55→20:41)
[2019-06-26] MEDS: LACTOBACILLUS ACIDOPHILUS (PROBIOTIC) CAPSULE PO SCH ×3 (06:55→16:38)
--- NOTE | 2019-06-26 07:50 | NUR ---
REPORT TAKEN AT THIS TIME FROM LUDY PACK FROM ICU. THIS RN WILL ASSUME CARE OF THIS PATIENT WHEN SHE ARRIVES TO THE FLOOR FROM CARDIAC STEPDOWN UNIT THIS A.M.
--- NOTE | 2019-06-26 08:03 | Progress Note - Hospitalist ---
Subjective HPI/CC On Admission Date Seen by Provider: Jun 26, 2019 Time Seen by Provider: 07:30 Pt is an 89yoCF with a PMH of dementia, HTN, who presented to the ER due to aspiration. She is unable to provide me any history at this time as she was preoccupied with her sheets. Per notes she was at a NH and ate a cracker and some milk and then it got stuck in her throat. On arrival here she slightly hypoxic requiring oxygen via nasal cannula. She was admitted for pneumonia. Of note on 05/31 she was here in our ED and intubated and transferred to [facility]. Subjective/Events-last exam Pt coughing after eating pancakes. Discussed goals of care and patient states she would not want to be intubated again and "when it's my time it's my time." Focused Exam Lactate Level 06/24/19 23:52: Lactic Acid Level 3.08*H 06/25/19 01:40: Lactic Acid Level 2.74*H Objective Exam Vital Signs Vital Signs Date Time Temp Pulse Resp B/P (MAP) Pulse Ox O2 Delivery O2 Flow Rate FiO2 06/26/19 04:20 Nasal Cannula 2.00 06/26/19 04:00 93 15 98/47 (64) 94 06/26/19 03:14 97.3 06/25/19 04:48 21 Capillary Refill : Less Than 3 Seconds General Appearance: Anxious, Chronically ill, Mild Distress Respiratory: No Accessory Muscle Use, Rhonci Cardiovascular: Regular Rate, Rhythm, No Murmur Gastrointestinal: Normal Bowel Sounds, Non Tender, Soft Genital/Rectal: Other (catheter in place) Extremity: No Pedal Edema Neurologic/Psychiatric: Alert, Other (oriented to person and place) Skin: Warm/Dry, Pallor Results/Procedures Lab Laboratory Tests 06/26/19 03:30 Patient resulted labs reviewed. Imaging: Reviewed Imaging Report Assessment/Plan Assessment and Plan Assess & Plan/Chief Complaint Severe Sepsis HAP Aspiration HTN normocytic anemia hypothyroidism Plan: Continue abx- await cultures probiotics Pulm consult Mat protocol Video swallow ordered Speech therapy Discussed with patient and son regarding goals of care and will switch to DNR per her wishes Continued discussion with son that aspiration likely unable to be fixed and she will likely deal with this the rest of her life, he expressed understanding palliative care consult Diagnosis/Problems Diagnosis/Problems (1) Severe sepsis Status: Acute (2) Pneumonia Status: Acute Qualifiers: Pneumonia type: aspiration pneumonia Aspiration pneumonia type: unspecified Laterality: bilateral Lung location: lower lobe of lung Qualified Codes: J69.0 - Pneumonitis due to inhalation of food and vomit (3) Aspiration into airway Status: Acute Qualifiers: Encounter type: subsequent encounter Qualified Codes: T17.908D - Unspecified foreign body in respiratory tract, part unspecified causing other injury, subsequent encounter (4) Dementia Status: Chronic Qualifiers: Dementia type: unspecified type Dementia behavioral disturbance: without behavioral disturbance Qualified Codes: F03.90 - Unspecified dementia without behavioral disturbance (5) Normocytic anemia Status: Chronic (6) Chronic pain Status: Chronic Qualifiers: Chronic pain type: chronic pain syndrome Qualified Codes: G89.4 - Chronic pain syndrome (7) Hypothyroidism Status: Chronic Qualifiers: Hypothyroidism type: unspecified Qualified Codes: E03.9 - Hypothyroidism, unspecified (8) Hypertension Status: Acute Qualifiers: Hypertension type: essential hypertension Qualified Codes: I10 - Essential (primary) hypertension Clinical Quality Measures DVT/VTE Risk/Contraindication: Risk Factor Score Per Nursin RFS Level Per Nursing on Admit: 4+=Very High SHAHIDA DICKERSON MD Jun 26, 2019 08:03
--- NOTE | 2019-06-26 08:42 | NUR ---
Follow up visit: RN states the pt expressed she does not want CPR or intubation. Pt's message concerning her wishes has remained consistent. She demonstrated difficulty speaking, often coughing. RT Nga present to give breathing treatment. Both of us listened to the pt, who said she was tired and then became tearful. Offered active listening and comforting words.
[2019-06-26] MEDS ORDERED: DILT180C82 PO (08:47)
[2019-06-26] MEDS ORDERED: OXYC-529 PO (08:47)
[2019-06-26] MEDS ORDERED: GLIM2TAB PO (08:47)
[2019-06-26] MEDS ORDERED: DIAZ5TAB3 PO (08:47)
[2019-06-26] MEDS ORDERED: INSU100I32 SQ (08:47)
[2019-06-26] MEDS ORDERED: ACET325T49 PO (08:47)
[2019-06-26] MEDS ORDERED: LEVO50TA6 PO (08:47)
[2019-06-26] MEDS ORDERED: GUAI100L13 PO (08:47)
[2019-06-26] MEDS ORDERED: LISI10TA2 PO (08:47)
[2019-06-26] MEDS ORDERED: APIX5TAB PO (08:47)
[2019-06-26] MEDS ORDERED: FURO-124 PO (08:47)
[2019-06-26] MEDS ORDERED: SULF1TAB35 PO (08:47)
[2019-06-26] MEDS ORDERED: GUAI120013 PO (08:47)
[2019-06-26] MEDS ORDERED: ALB0.5V INH (08:47)
--- NOTE | 2019-06-26 08:49 | NUR ---
ENTERED MED REC FROM THE MEDICATION REVIEW REPORT FROM [facility]. A COPY OF THIS REPORT WILL BE ATTACHED TO THE PT CHART.
--- NOTE | 2019-06-26 09:14 | NUR ---
Patient brought done from ICU at 0830.
[2019-06-26] MEDS: DILTIAZEM 180 MG (CARDIZEM CD) CAP PO SCH (09:22)
[2019-06-26] MEDS: methylPREDNISolone 40 MG/ML (Solu-MEDROL) VIAL IV SCH ×2 (09:22→20:33)
[2019-06-26] MEDS: risperiDONE 0.25 MG (RisperDAL) TAB PO SCH ×2 (09:23→20:34)
[2019-06-26] MEDS: ENOXAPARIN 40 MG/0.4 ML (LOVENOX) SYR SC SCH (10:05)
--- NOTE | 2019-06-26 10:12 | Diagnostic Imaging Report ---
PATIENT HISTORY: Cough. Shortness of breath. TECHNIQUE: Two views of the chest. COMPARISON: 06/25/2019. FINDINGS: Slight decrease in patchy opacities in the left lung base with continued opacities in the right lung base. No large pleural effusion or pneumothorax. Stable cardiac silhouette. There is calcified aortic atherosclerotic plaque. No acute osseous abnormalities. Severe degenerative change is again seen in the bilateral glenohumeral joints. IMPRESSION: Decreased left and stable right basilar opacities which may represent infection and/or atelectasis. Dictated by: Dictated on workstation # [id number]
--- NOTE | 2019-06-26 10:30 | Occupational Ther Daily Note ---
OT Current Status-Daily Note Subjective pt laying in bed upon O T arrival in no apparent distress. pt agreed to O TTX session with focus on increasing independence with ADLS / functional transfers. pt son present during session. post session son pull therapist into hallway and stated his mother like to "play games" with staff members and "pretend" she can not do most things that way people to do things for her. son stated pt is capable of ambulating approx 80 ft using RW PLOF. Pain Numeric Pain Scale: 0-No Pain Mental Status/Objective Patient Orientation: Person Therapy Code Descriptions/Definitions Functional [place] Measure: 0=Not Assessed/NA 4=Minimal Assistance 1=Total Assistance 5=Supervision or Setup 2=Maximal Assistance 6=Modified [place] 3=Moderate Assistance 7=Complete [place] Attachments: Eaton Catheter, IV ADL-Treatment Bathing (FIM): 3 (pt required cuing to wash each body part. pt demo ability to maitnain static standing balance for approx 4 minutes ) Bathing Location: L Arm, R Arm, L Upper Leg, R Upper Leg, Chest, Abdomen Lower Body Dressing (FIM): 1 (loren socks ) Transfers (B, C, W/C) (FIM): 3 (bed to chiar. ) pt demo ability to perform sit to stand throughout session with ADLs. pt required MIN-MOD A during task. post ADLs pt sitting in recliner chair, chair alarm on, call light within reach, all needs met. Education OT Patient Education: Energy conservation, Modified ADL techniques, Progress toward Goal/Update tx plan, Purpose of tx/functional activities, Safety issues Teaching Recipient: Patient Teaching Methods: Demonstration, Discussion Response to Teaching: Verbalize Understanding, Return Demonstration OT Short Term Goals Short Term Goals Bathing(FIM): 3 Lower Body Dressing(FIM): 3 Toileting(FIM): 3 Transfers (B,C,W/C) (FIM): 4 Toilet/Commode Transfer(FIM): 4 Comprehension(FIM): 5 Expression(FIM): 5 Social Interaction(FIM): 6 Problem Solving(FIM): 5 Memory(FIM): 5 1=Demonstrate adherence to instructed precautions during ADL tasks. 2=Patient will verbalize/demonstrate understanding of assistive devices/modifications for ADL. 3=Patient will improve strength/tolerance for activity to enable patient to perform ADL's. OT Technical Sales Support Specialist Goals Technical Sales Support Specialist Goals Eating (FIM): 6 Grooming(FIM): 6 Bathing(FIM): 5 Toileting(FIM): 5 Transfers (B,C,W/C) (FIM): 5 Toilet/Commode Transfer(FIM): 5 Comprehension(FIM): 5 Expression (FIM): 5 Social Interaction(FIM): 6 Problem Solving(FIM): 5 Memory(FIM): 5 Additional Goals: 1-Demonstrate ADL Tasks, 2-Verbalize Understanding, 3- ImproveStrength/Akhil 1=Demonstrate adherence to instructed precautions during ADL tasks. 2=Patient will verbalize/demonstrate understanding of assistive devices/modifications for ADL. 3=Patient will improve strength/tolerance for activity to enable patient to perform ADL's. OT Education/Plan Problem List/Assessment pt present with functional limitations affecting areas of ADLs and functional transfers with the above mention deficits. pt would benefit from OT services to in crease independence with ADLs and functional transfers. recommended d/c SNF to continue addressing deficits when d/c from hospital. Discharge Recommendations Plan/Recommendations: Continue POC Therapy D/C Recommendations: 24 hr Supervision, Prison (TCU/NH) Treatment Plan/Plan of Care Treatment,Training & Education: Yes Patient would benefit from OT for education, treatment and training to promote independence in ADL's, mobility, safety and/or upper extremity function for ADL's. Plan of Care: ADL Retraining, Caregiver Training, Functional Mobility, Group Exercise/Act as Ind, UE Funct Exercise/Act Treatment Duration: Jul 09, 2019 Frequency: 5 times per week Estimated Hrs Per Day: .25 hour per day Agreement: Yes Rehab Potential: Fair Time/GCodes Start Time: 10:00 Stop Time: 10:30 Billed Treatment Time ADL 30 minutes, 2 units AYANA GUAN OT Jun 26, 2019 10:30
--- NOTE | 2019-06-26 11:34 | Physical Therapy Daily Note ---
PT Daily Note-Current Subjective Patient is in recliner and confused. Does agree to PT. Utilized suction x 3 during treatment session. Mental Status Patient Orientation: Confused Attachments: Oxygen (5L), Eaton Catheter Transfers Therapy Code Descriptions/Definitions Functional [place] Measure: 0=Not Assessed/NA 4=Minimal Assistance 1=Total Assistance 5=Supervision or Setup 2=Maximal Assistance 6=Modified [place] 3=Moderate Assistance 7=Complete [place] Therapy Quality Codes: 6 Independent with activity with or without an assistive device 5 Patient requires set up or clean up by helper. Patient completes activity by themselves 4 Supervision or touching assist (CGA). [place] provide cues , steadying assist 3 The helper provides less than half the effort to complete the activity 2 The helper provides more than half the effort to complete the activity 1 Dependent. The helper does all the effort to complete an activity 7 Patient refused to complete or attempt activity 9 The patient did not perform the activity before the current illness or injury 88 Not attempted due to Medical conditions or safety concerns Transfers (B, C, W/C) (FIM): 4 Scootin Sit to/from Stand: 4 tactile cues for hand placement on arm rests for safe transfers. Gait Training Gait (FIM): 2 Distance (FIM): 3=592-96 ft Distance: 112' Gait Level of Assist: 4 Gait Persons Needed: 1 Gait Assistive Device: FWW very slow, steady gait sequence Exercises Seated Therapy Exercises: Ankle pumps, Long arc quads Seated Reps: 12 Assessment Patient tolerates minimal activity due to SOA and fatigue. PT to continue to address goals. PT Short Term Goals Short Term Goals Transfers (B,C,W/C) (FIM): 4 PT [employer] Sprayer Goals [employer] Sprayer Goals PT Halfway Goals Time Frame: Jul 02, 2019 Transfers (B,C,W/C) (FIM): 5 Gait (FIM): 1 Gait distance (FIM): 1=up to 49 ft Distance: 45' Gait Level of Assist: 4 Gait Assistive Device: FWW PT Plan Treatment/Plan Treatment Plan: Continue Plan of Care Treatment Plan: Bed Mobility, Education, Functional Activity Akhil, Functional Strength, Gait, Safety, Therapeutic Exercise, Transfers Treatment Duration: Jul 02, 2019 Frequency: 6 times per week Estimated Hrs Per Day: .25 hour per day Patient and/or Family Agrees t: Yes Time/GCodes Time In: 1048 Time Out: 1100 Total Billed Treatment Time: 12 Total Billed Treatment 1 visit FA 12 min CB NEW PT Jun 26, 2019 11:33
--- NOTE | 2019-06-26 12:52 | NUR ---
PALLIATIVE CARE RN to room after consult received. Patient is whining about not being able to do anything and then she listed...walk and use her left had. She appears to be SOB and frequently looks as if she were going to vomit, but instead she coughs up white frothy sputum. She has suction to room to help evacuate this but she was placing it under her tongue and not using it properly Once instructed to place on top of tongue she was able to evacuate. Nursing was working on changing IV so just had a brief visit. Will return for further discussion in a few minutes. No family is in room at time of visit.
[2019-06-26] MEDS ORDERED: SCOPOLAMINE 1.5 MG (TRANSDERM-SCOP) PATCH TD NR (13:15)
--- NOTE | 2019-06-26 13:59 | ST Mod Barium Swallow ---
Speech Evaluation-General Medical Diagnosis pneumonia, sepsis, hypoxia Onset Date: Jun 25, 2019 Therapy Diagnosis Therapy Diagnosis: oropharyngeal dysphagia Precautions Precautions: Fall, Pressure Ulcer, Aspiration Precautions/Isolations: Aspiration, Fall Prevention, Standard Precautions Referral Referring Physician: Dr. Sommer Reason for Referral: Evaluation/Treatment Medical History Pertinent Medical History: DM, Dementia, HTN, Hypothroidism DM, HTN, hypothyroidism, dementia Current History oropharyngeal dysphagia Reviewed History: Yes Social History Home: [facility] Current Living Status: Speech Mod Barium Swallow Prior Level of Function patient previous diet were regular consistencies with nectar thick liquids Oral Motor Skills Lingual Protrusion: Normal Lingual ROM: Normal Lingual Strength: Normal Velum: Normal Volitional Dry Swallow: Yes Gag Reflex: Yes Voluntary Cough: No Voluntary Cough Comments: Patient expressed cannot cough voluntary and uses suction Can Clear Throat Volitionally: Yes NONPRODUCTIVE Textures-Lateral View Lateral View Food Presentation: [place] Liquid via Spoon, Pureed Solids, Ground Solids, Mechanial Soft Solids Oral Phase Labial Closure: No Impairment (WFL) Bolus Formation Pooling L/R: No Impairment (WFL) Bolus Formation Placement: No Impairment (WFL) Mastication Rotary Chew: Moderate Impairment slow and effortful A/P Lingual Propulsion: Moderate Impairment Lingual Movement: No Impairment (WFL) Oral Phase Residue: Mild Impairment Pharyngeal Phase Swallow Response: Moderate Impairment delayed swallow Base of Tongue: Moderate Impairment Epiglottic Movement: No Impairment (WFL) Laryngeal Elevation: No Impairment (WFL) Vallecular Residue: Severe mod clear w/ presentation of bolus or liquid, but some residue remains Pharyngeal Wall Residue: Moderate partial clearing with repeated cues to swallow Piriform Sinus Residue: Moderate Laryngeal Penetration: None Aspiration Observations: None Patient did not demonstrate s/s aspiration with presented textures/liquids Other Pharyngeal Observations: Patient was not presented thin liquids due to penetration (i.e. coughing) during bedside swallow evaluation Esophageal Phase unable to see this Performed-A/P View Not Applicable/Performed Observations did not complete a/p view Summary/Impressions Oral Phase Impression: Mild Impairment Patient presents with oropharyngeal dysphagia secondary to oral and pharyngeal residue and delayed swallow. The patient has an impaired swallow response making it difficult to clear residue in the valleculae. Volitional coughs are not productive, but she was able to clear valleculae with presentation of another bolus or nectar thick liquid. She demonstrated no s/s aspiration or penetration of presented textures/liquids. Patient would benefit from skilled ST to target safe swallow strategies and potential for advancement of diet. Speech Short Term Goals Short Term Goals Short Term Goals The patient will tolerate least restrictive diet level without s/s aspiration at 90% or greater. Patient will utilize compensatory strategies as trained for safe oral intake at 90% or greater with minimal verbal cues. Comprehension: 5 Expression: 5 Social Interaction: 6 Problem Solvin Memory: 5 Speech Load Out Supervisor Goals Load Out Supervisor Goals Patient will maintain adequate nutrition/hydration via safe, effective swallow function Comprehension: 5 Expression: 5 Social Interaction: 6 Problem Solvin Memory: 5 Speech-Plan Patient/Family Goals Patient/Family Goals: swallow safety Treatment Plan Speech Therapy Treatment Plan: Continue Plan of Care Patient demonstrates oropharyngeal dysphagia. Diet recommendations include nectar thick liquids with puree, minced & moist, or soft & bite-sized textures (Dysphagia II on National Dysphagia Diet) Treatment Duration: Jul 09, 2019 Frequency: 4 times per week Estimated Hrs Per Day: .25 hour per day Rehab Potential: Fair Barriers to Learning: cognitive-communication; oropharyngeal dysphagia Pt/Family Agrees to Plan: Yes Safety Risks/Education Teaching Recipient: Patient Teaching Methods: Discussion Response to Teaching: Verbalize Understanding Education Topics Provided: MBSS results: Dysphagia II Status and Swallow Strategies (i.e. sit upright, small bites and sips) Time Speech Therapy Time In: 13:30 Speech Therapy Time Out: 13:50 Total Billed Time: 20 Billed Treatment Time 1, MOD No ARIANNA EDMONDRicardo TODD Jun 26, 2019 13:59
--- NOTE | 2019-06-26 14:10 | Diagnostic Imaging Report ---
INDICATION: Productive cough. Study was performed in conjunction with speech pathology. Videofluoroscopy was performed during swallowing barium with multiple consistencies. FINDINGS: Patient ingested nectar consistency as well as applesauce and cracker consistency. Total of 2 minutes and 47 seconds of fluoroscopy was utilized. There is moderate early spillover with all consistencies. There is moderate vallecular residue present with multiple consistencies. There is normal epiglottic tilt. No penetration or aspiration was observed with any consistency. Patient did eventually show moderate clearing of vallecular residue with repeated swallows. IMPRESSION: Moderate vallecular residue. No penetration or aspiration was observed. Dictated by: Dictated on workstation # [id number]
--- NOTE | 2019-06-26 15:26 | NUR ---
Palliative Care RN in to room to see if son Niraj was here.. He was not but patint was back from Barium Swallow study and wanting to get dress and go home. Explained to her that she would need to stay in her at least tonight to continue getting her Abx for Pne.
--- NOTE | 2019-06-26 15:51 | NUR ---
CM/SS. Patient has recently established placement with [facility] under Medicare skilled status and plans to return there when medically released. She was admitted to them approx 10 days ago from [facility]. Care plan is to resume skilled therapies and care at [facility].
[2019-06-27] MEDS: PIPERACILLIN/TAZOBACTAM (BULK) 4.5 GM in NS (IVPB) 100 ML IV SCH ×3 (02:40→18:18)
[2019-06-27 04:00] VITALS: BP 133/66
[2019-06-27] MEDS: LEVOTHYROXINE 50 MCG (LEVOTHROID) TAB PO SCH (05:14)
[2019-06-27] MEDS: LACTOBACILLUS ACIDOPHILUS (PROBIOTIC) CAPSULE PO SCH ×3 (05:15→18:16)
[2019-06-27 05:23] LABS: BASOPHILS % (AUTO) 0 % (0-10); EOSINOPHILS % (AUTO) 0 % (0-10); HEMATOCRIT 29 % (35-52); HEMOGLOBIN 8.4 G/DL (11.5-16.0); LYMPHOCYTES # (AUTO) 0.5 X 10^3 (1.0-4.0); LYMPHOCYTES % (AUTO) 5 % (12-44); MEAN CORPUSCULAR HEMOGLOBIN 24 PG (25-34); MEAN CORPUSCULAR HGB CONC 29 G/DL (32-36); MEAN CORPUSCULAR VOLUME 82 FL (80-99); MONOCYTES # (AUTO) 0.2 X 10^3 (0.0-1.0); MONOCYTES % (AUTO) 2 % (0-12); NEUTROPHILS # (AUTO) 7.9 X 10^3 (1.8-7.8); NEUTROPHILS % (AUTO) 92 % (42-75); PLATELET COUNT 227 10^3/uL (130-400); RED CELL DISTRIBUTION WIDTH 16.8 % (10.0-14.5); WHITE BLOOD COUNT 8.6 10^3/uL (4.3-11.0)
[2019-06-27 05:41] LABS: BUN/CREATININE RATIO 22; CARBON DIOXIDE 25 MMOL/L (21-32); CHLORIDE 107 MMOL/L (98-107); CREATININE SERUM 0.59 MG/DL (0.60-1.30); GFR ESTIMATED > 60; GLUCOSE 188 MG/DL (70-105); POTASSIUM 3.9 MMOL/L (3.6-5.0); SODIUM 144 MMOL/L (135-145)
[2019-06-27 05:52] LABS: BAND NEUTROPHILS 3 %; HYPOCHROMASIA SLIGHT; LYMPHOCYTES % (MANUAL) 9 %; MONOCYTES % (MANUAL) 2 %; NEUTROPHILS % (MANUAL) 86 %
[2019-06-27] MEDS: RT-ALBUTEROL SULF 2.5 MG/3 ML PRE-MIX VIAL INH SCH ×4 (07:11→22:38)
[2019-06-27 08:00] VITALS: BP 136/61
--- NOTE | 2019-06-27 08:43 | Occupational Ther Daily Note ---
OT Current Status-Daily Note Subjective pt laying in bed upon O T arrival. pt agreed to OT TX session with focus on increasing independence with ADLS/ functional transfers. pt reports no pain. during session when pt asked to complete tasks pt would stated "my legs don't work" "my arms don't work" pt required encouragement to participate in OT T X s ession Mental Status/Objective Therapy Code Descriptions/Definitions Functional [place] Measure: 0=Not Assessed/NA 4=Minimal Assistance 1=Total Assistance 5=Supervision or Setup 2=Maximal Assistance 6=Modified [place] 3=Moderate Assistance 7=Complete [place] ADL-Treatment Eating (FIM): 5 (set up,. ) Grooming (FIM): 5 (set up) Lower Body Dressing (FIM): 3 (pt demo ability to danielle Right sock and required assist with left sock. pt education on figure four positioning ) Transfers (B, C, W/C) (FIM): 4 (CGA for safety/ balance. pt required cuing to use RW approp. ) pt required MAX encouragement to complete tasks without assist. pt perform supine to sit with CGA and skilled cuing for proper positioning. pt sat EOB with SBA and perform ADLs. pt then perform sit to stand with CGA and amb 6 ft to recliner chair with CGA and mod cuing for proper use of RW. pt sitting in recliner chair to finish breakfast. noted thicken packages on tray. (pt food/ drink were already thicken by nursing). extra thicken packages removed from tray and given to Nurse Karen for safety. pt sitting in recliner chair, chair alarm on, call light within reach. pt demo correct use of call light. all needs met. Education OT Patient Education: Modified ADL techniques, Progress toward Goal/Update tx plan, Purpose of tx/functional activities, Safety issues, Transfer techniques, Use of adapted equipment Teaching Recipient: Patient Teaching Methods: Demonstration, Discussion Response to Teaching: Verbalize Understanding, Return Demonstration OT Short Term Goals Short Term Goals Bathing(FIM): 3 Lower Body Dressing(FIM): 3 Toileting(FIM): 3 Transfers (B,C,W/C) (FIM): 4 Toilet/Commode Transfer(FIM): 4 Comprehension(FIM): 5 Expression(FIM): 5 Social Interaction(FIM): 6 Problem Solving(FIM): 5 Memory(FIM): 5 1=Demonstrate adherence to instructed precautions during ADL tasks. 2=Patient will verbalize/demonstrate understanding of assistive devices/modifications for ADL. 3=Patient will improve strength/tolerance for activity to enable patient to perform ADL's. OT Retirement Goals Corn Cutter Operator Goals Eating (FIM): 6 Grooming(FIM): 6 Bathing(FIM): 5 Toileting(FIM): 5 Transfers (B,C,W/C) (FIM): 5 Toilet/Commode Transfer(FIM): 5 Comprehension(FIM): 5 Expression (FIM): 5 Social Interaction(FIM): 6 Problem Solving(FIM): 5 Memory(FIM): 5 Additional Goals: 1-Demonstrate ADL Tasks, 2-Verbalize Understanding, 3- ImproveStrength/Akhil 1=Demonstrate adherence to instructed precautions during ADL tasks. 2=Patient will verbalize/demonstrate understanding of assistive devices/modifications for ADL. 3=Patient will improve strength/tolerance for activity to enable patient to perform ADL's. OT Education/Plan Problem List/Assessment Assessment: Decreased Activ Tolerance, Decreased Safety Aware, Decreased UE Strength, Impaired Self-Care Skills pt present with functional limitations affecting areas of ADLs and functional transfers with the above mention deficits. pt would benefit from OT services to in crease independence with ADLs and functional transfers. recommended d/c SNF to continue addressing deficits when d/c from hospital. Discharge Recommendations Plan/Recommendations: Continue POC Therapy D/C Recommendations: 24 hr Supervision, [place] (TCU/NH) Treatment Plan/Plan of Care Treatment,Training & Education: Yes Patient would benefit from OT for education, treatment and training to promote independence in ADL's, mobility, safety and/or upper extremity function for ADL's. Plan of Care: ADL Retraining, Caregiver Training, Functional Mobility, Group Exercise/Act as Ind, UE Funct Exercise/Act Treatment Duration: Jul 09, 2019 Frequency: 5 times per week Estimated Hrs Per Day: .25 hour per day Agreement: Yes Rehab Potential: Fair Time/GCodes Start Time: 08:05 Stop Time: 08:30 Billed Treatment Time ADL 25 minutes, 2 units AYANA GUAN OT Jun 27, 2019 08:43
--- NOTE | 2019-06-27 09:40 | Diagnostic Imaging Report ---
Indication: Aspiration pneumonia. Time of exam: 9:28 AM Correlation is made with prior chest one day earlier. Heart size is stable. Right basilar infiltrate does appear to be improved since yesterday. There also appears to be some improved aeration to the left base since yesterday. No effusion is seen. No new infiltrate is detected. Mid and upper lung simpson appear to be fairly clear. There is no pneumothorax. Impression: Improved aeration to both lungs when compared with examination one day earlier. Dictated by: Dictated on workstation # [id number]
[2019-06-27] MEDS: DILTIAZEM 180 MG (CARDIZEM CD) CAP PO SCH (10:05)
[2019-06-27] MEDS: methylPREDNISolone 40 MG/ML (Solu-MEDROL) VIAL IV SCH ×2 (10:05→21:13)
[2019-06-27] MEDS: risperiDONE 0.25 MG (RisperDAL) TAB PO SCH ×2 (10:05→21:14)
[2019-06-27] MEDS: ENOXAPARIN 40 MG/0.4 ML (LOVENOX) SYR SC SCH (10:05)
[2019-06-27] MEDS: BENZONATATE 100 MG (TESSALON) CAPSULE PO SCH ×3 (10:06→21:14)
[2019-06-27] MEDS: oxyCODONE/APAP 10/325MG (PERCOCET 10) TABLET PO PRN ×2 (10:54→22:10)
--- NOTE | 2019-06-27 10:58 | Physical Therapy Daily Note ---
PT Daily Note-Current Subjective Pt. up in recliner. c/o she has so much pain at urethra she associates with UTI etc. States she wants something to drink Pain Numeric Pain Scale: 7 Location: Medial Location Body Site: Genital Pain Description: Burning Appearance audible crackles with breathing and coughing, dark bloody urine in braxton, Mental Status Patient Orientation: Confused Attachments: Oxygen, Braxton Catheter Transfers Therapy Code Descriptions/Definitions Functional [place] Measure: 0=Not Assessed/NA 4=Minimal Assistance 1=Total Assistance 5=Supervision or Setup 2=Maximal Assistance 6=Modified [place] 3=Moderate Assistance 7=Complete [place] Therapy Quality Codes: 6 Independent with activity with or without an assistive device 5 Patient requires set up or clean up by helper. Patient completes activity by themselves 4 Supervision or touching assist (CGA). [place] provide cues , steadying assist 3 The helper provides less than half the effort to complete the activity 2 The helper provides more than half the effort to complete the activity 1 Dependent. The helper does all the effort to complete an activity 7 Patient refused to complete or attempt activity 9 The patient did not perform the activity before the current illness or in jury 88 Not attempted due to Medical conditions or safety concerns sit to stand CGA x 4 trials Gait Training Gait Assistive Device: FWW 15ft x 2 mod assist as pt crosses over has LOB requiring assist to recover Exercises Seated Therapy Exercises: Ankle pumps, Sit to stand, Long arc quads, Hip flexion, Hip abd/add Seated Reps: 15 Assessment Current Status: Fair Progress suggesting hospice to pt. after Rx PT Short Term Goals Short Term Goals Transfers (B,C,W/C) (FIM): 4 PT Track Repairer Goals Shelter Goals PT Track Repairer Goals Time Frame: Jul 02, 2019 Transfers (B,C,W/C) (FIM): 5 Gait (FIM): 1 Gait distance (FIM): 1=up to 49 ft Distance: 45' Gait Level of Assist: 4 Gait Assistive Device: FWW PT Plan Treatment/Plan Treatment Plan: Continue Plan of Care Treatment Plan: Bed Mobility, Education, Functional Activity Akhil, Functional Strength, Gait, Safety, Therapeutic Exercise, Transfers Treatment Duration: Jul 02, 2019 Frequency: 6 times per week Estimated Hrs Per Day: .25 hour per day Patient and/or Family Agrees t: Yes Safety Risks/Education Patient Education: Gait Training, Transfer Techniques Teaching Recipient: Patient Teaching Methods: Demonstration, Discussion Response to Teaching: Unable to Return Demonstration, Unable to Comprehend, Reinforcement Needed Time/GCodes Time In: 1035 Time Out: 1055 Total Billed Treatment Time: 20 Total Billed Treatment 1,FA20m G Codes Necessary: BERNIE Broderick MANUFACTURING CHIEF ENGINEER Jun 27, 2019 10:58
--- NOTE | 2019-06-27 11:14 | Progress Note - Hospitalist ---
Subjective HPI/CC On Admission Date Seen by Provider: Jun 27, 2019 Time Seen by Provider: 11:09 Pt is an 89yoCF with a PMH of dementia, HTN, who presented to the ER due to aspiration. She is unable to provide me any history at this time as she was preoccupied with her sheets. Per notes she was at a NH and ate a cracker and some milk and then it got stuck in her throat. On arrival here she slightly hypoxic requiring oxygen via nasal cannula. She was admitted for pneumonia. Of note on 05/31 she was here in our ED and intubated and transferred to [facility]. Subjective/Events-last exam Pt is sitting up in bed and coughing. Requesting coffee. Examined patient with palliative care nurse and discussed options for hospice and patient is interested in meeting with this to explore options. Focused Exam Lactate Level 06/24/19 23:52: Lactic Acid Level 3.08*H 06/25/19 01:40: Lactic Acid Level 2.74*H Objective Exam Vital Signs Vital Signs Date Time Temp Pulse Resp B/P (MAP) Pulse Ox O2 Delivery O2 Flow Rate FiO2 06/27/19 07:11 95 Nasal Cannula 5.00 06/27/19 04:00 98.0 98 20 133/66 (88) 06/25/19 04:48 21 Capillary Refill : Less Than 3 Seconds General Appearance: No Apparent Distress, Chronically ill Respiratory: No Accessory Muscle Use, Rhonci Cardiovascular: Regular Rate, Rhythm Gastrointestinal: Normal Bowel Sounds, Non Tender, Soft Genital/Rectal: Other (catheter in place) Neurologic/Psychiatric: Alert, Other (oriented to person and place) Skin: Warm/Dry, Pallor Results/Procedures Lab Laboratory Tests 06/27/19 05:15 Patient resulted labs reviewed. Imaging: Reviewed Imaging Report Assessment/Plan Assessment and Plan Assess & Plan/Chief Complaint Severe Sepsis HAP Aspiration HTN normocytic anemia hypothyroidism Dementia PPS 40% Plan: Continue abx- NGTD on cultures probiotics Pulm consulted, appreciate recs Mat protocol Video swallow shows no signs of aspiration Speech therapy Discussed with patient and is interested in hospice evaluation Palliative care consulted, appreciate assistance Diagnosis/Problems Diagnosis/Problems (1) Severe sepsis Status: Acute (2) Pneumonia Status: Acute Qualifiers: Pneumonia type: aspiration pneumonia Aspiration pneumonia type: unspecifie d Laterality: bilateral Lung location: lower lobe of lung Qualified Codes: J69.0 - Pneumonitis due to inhalation of food and vomit (3) Aspiration into airway Status: Acute Qualifiers: Encounter type: subsequent encounter Qualified Codes: T17.908D - U nspecified foreign body in respiratory tract, part unspecified causing other injury, subsequent encounter (4) Dementia Status: Chronic Qualifiers: Dementia type: unspecified type Dementia behavioral disturbance: without behavioral disturbance Qualified Codes: F03.90 - Unspecified dementia without behavioral disturbance (5) Normocytic anemia Status: Chronic (6) Chronic pain Status: Chronic Qualifiers: Chronic pain type: chronic pain syndrome Qualified Codes: G89.4 - Chronic pain syndrome (7) Hypothyroidism Status: Chronic Qualifiers: Hypothyroidism type: unspecified Qualified Codes: E03.9 - Hypothyroidism, unspecified (8) Hypertension Status: Acute Qualifiers: Hypertension type: essential hypertension Qualified Codes: I10 - Essential (primary) hypertension Clinical Quality Measures DVT/VTE Risk/Contraindication: Risk Factor Score Per Nursin RFS Level Per Nursing on Admit: 4+=Very High SHAHIDA DICKERSON MD Jun 27, 2019 11:14
--- NOTE | 2019-06-27 11:28 | NUR ---
Palliative Care RN spoke with patient's son this morning. We had a long discussion about her decline and current illness. He is understanding of the possibility that hospice may being her future. Later this RN rounded with Dr Bueno and they discussed allowing hospice to come and assess her from admission. Patient is agreeable but not exactly sure if she fully understands. I will call her son Niraj, to discuss this and see what his availability will be for meeting with hospice. Addendum: 06/27/19 at 1145 by DESHAUN JOSE RN Message left with danya Healy to shirlene me to discuss discharge POC.
[2019-06-27 12:00] VITALS: BP 140/65
--- NOTE | 2019-06-27 12:23 | Speech Therapy Daily Note ---
Speech Daily Progress Note Subjective Date Seen by Provider: Jun 27, 2019 Time Seen by Provider: 00:15 Patient was sitting upright 90 degrees in chair during lunchtime. Patient was pleasant and cooperative Objective Patient was observed during lunchtime for PO trials of regular and nectar thick liquids (NTL). Patient had spit out regular texture meat, but tolerated Dysphagia I and II textures. Patient reported improved swallowing. Patient frequently coughed during session with a wet, gurgly voice. It is recommended patient have a Dysphagia II diet due to voice quality, tolerance, and MBSS results. Patient reported aspirating on a sticky gladys cracker and patient has varying success with regular textures. Patient was educated on sitting upright, taking small bites, and alternating with NTL. Assessment Assessment Current Status: Good Progress Treatment Plan Continue Plan of Care Communication Comprehension: 5 Expression: 5 Social Cognition Social Interaction: 6 Problem Solvin Memory: 5 Speech Short Term Goals Short Term Goals Short Term Goals The patient will tolerate least restrictive diet level without s/s aspiration at 90% or greater. Patient will utilize compensatory strategies as trained for safe oral intake at 90% or greater with minimal verbal cues. Comprehension: 5 Expression: 5 Social Interaction: 6 Problem Solvin Memory: 5 Speech Molecular Biology Director Goals Mcc Goals Patient will maintain adequate nutrition/hydration via safe, effective swallow function Comprehension: 5 Expression: 5 Social Interaction: 6 Problem Solvin Memory: 5 Speech-Plan Patient/Family Goals Patient/Family Goals: safe swallowing Treatment Plan Speech Therapy Treatment Plan: Continue Plan of Care patient is making progress towards goals. Patient is on Dysphagia I and II diet with nectar thick liquids following MBSS. Whiteboard in room has been changed to reflect diet change. Treatment Duration: Jul 09, 2019 Frequency: 4 times per week Estimated Hrs Per Day: .25 hour per day Rehab Potential: Fair Barriers to Learning: oropharyngeal dysphagia Pt/Family Agrees to Plan: Yes Safety Risks/Education Teaching Recipient: Patient Teaching Methods: Discussion Response to Teaching: Verbalize Understanding Education Topics Provided: room safety and swallow strategies (alternating bites/sips, small bites, sit upright) Time Speech Therapy Time In: 11:50 Speech Therapy Time Out: 12:05 Total Billed Time: 15 Billed Treatment Time 1ARPIT SEAN Jun 27, 2019 12:22
--- NOTE | 2019-06-27 14:24 | Pulmonary Progress Note ---
Sepsis Event Evaluation Height, Weight, BMI Height: 5'1.00" Weight: 161lbs. 2.0oz. 73.241732bz; 29.5 BMI Method:Stated Focused Exam Lactate Level 06/24/19 23:52: Lactic Acid Level 3.08*H 06/25/19 01:40: Lactic Acid Level 2.74*H Exam Exam Vital Signs Date Time Temp Pulse Resp B/P (MAP) Pulse Ox O2 Delivery O2 Flow Rate FiO2 06/27/19 11:25 98.3 06/27/19 09:00 Room Air 06/27/19 08:00 98.3 105 20 136/61 (86) 94 Nasal Cannula 4.00 06/27/19 07:11 95 Nasal Cannula 5.00 06/27/19 04:00 98.0 98 20 133/66 (88) 94 Nasal Cannula 5.00 06/27/19 02:40 86 Nasal Cannula 4.00 06/27/19 00:00 18 Room Air 06/26/19 21:00 Room Air 06/26/19 20:11 98.2 96 22 133/60 (84) 93 Nasal Cannula 4.00 06/26/19 19:30 91 Nasal Cannula 4.00 06/26/19 15:54 90 Nasal Cannula 4.00 06/26/19 15:31 97.8 91 22 140/63 (88) 94 Nasal Cannula 4.00 I & O 06/27/19 07:00 Intake Total 200 ml Output Total 600 ml Balance -400 ml Height & Weight Height: 5'1.00" Weight: 161lbs. 2.0oz. 73.348380hz; 29.5 BMI Method:Stated Results Lab Laboratory Tests 06/26/19 03:30 06/27/19 05:15 Assessment/Plan Assessment/Plan Aspiration pneumonia - dysphagia diet. -s/p barium swallow Persistent cough Zosyn -SVNs QID -IS -Aspiration precautions Dementia HAP HTN MARISLEA FLOYD DO Jun 27, 2019 14:24
--- NOTE | 2019-06-27 15:22 | NUR ---
Palliative Care RN was able to get in touch with son Niraj. We discussed hospice and that the doctor thinks this might be a great idea. Choices discussed and information sent to [facility] as requested. Meeting set for tomorrow morning at the hospital. Not sure she will actually choose this right now but may in the near future.
[2019-06-27 16:13] VITALS: BP 121/57
[2019-06-27 19:46] VITALS: BP 146/63
[2019-06-28] VITALS: BP 143/66
[2019-06-28] MEDS: fentaNYL INJECTION 100 MCG/2 ML AMP IVP PRN (01:47)
[2019-06-28] MEDS: PIPERACILLIN/TAZOBACTAM (BULK) 4.5 GM in NS (IVPB) 100 ML IV SCH ×2 (02:33→10:39)
[2019-06-28 04:00] VITALS: BP 138/68
[2019-06-28] MEDS: LEVOTHYROXINE 50 MCG (LEVOTHROID) TAB PO SCH (04:47)
[2019-06-28] MEDS: LACTOBACILLUS ACIDOPHILUS (PROBIOTIC) CAPSULE PO SCH ×2 (04:48→12:59)
--- NOTE | 2019-06-28 04:54 | NUR ---
PT REFUSING ALL MEDICATIONS. PT STATES "THE DOCTOR IS TAKING ME OFF THESE MEDS."
[2019-06-28] MEDS: RT-ALBUTEROL SULF 2.5 MG/3 ML PRE-MIX VIAL INH SCH ×2 (07:13→10:25)
--- NOTE | 2019-06-28 07:30 | Pulmonary Progress Note ---
Sepsis Event Evaluation Height, Weight, BMI Height: 5'." Weight: 161lbs. 2.0oz. 73.127695vu; 29.5 BMI Method:Stated Exam Exam Vital Signs Date Time Temp Pulse Resp B/P (MAP) Pulse Ox O2 Delivery O2 Flow Rate FiO2 06/28/19 04:00 99.1 112 22 138/68 (91) 95 Nasal Cannula 5.00 06/28/19 00:00 98.9 105 20 143/66 (91) 93 Nasal Cannula 5.00 06/27/19 22:37 96 Nasal Cannula 5.00 06/27/19 21:00 Nasal Cannula 5.00 06/27/19 19:46 98.2 106 24 146/63 (90) 94 Nasal Cannula 4.00 06/27/19 16:13 97.7 92 22 121/57 (78) 95 Nasal Cannula 4.00 06/27/19 15:06 95 Nasal Cannula 5.00 06/27/19 12:00 98.0 91 22 140/65 (90) 94 Nasal Cannula 4.00 06/27/19 11:25 98.3 06/27/19 09:00 Room Air 06/27/19 08:00 98.3 105 20 136/61 (86) 94 Nasal Cannula 4.00 I & O 06/28/19 07:00 Intake Total 750 ml Output Total 850 ml Balance -100 ml Height & Weight Height: 5'1.00" Weight: 161lbs. 2.0oz. 73.082675aj; 29.5 BMI Method:Stated Results Lab Laboratory Tests 06/27/19 05:15 Assessment/Plan Assessment/Plan Aspiration pneumonia - dysphagia diet. -s/p barium swallow Persistent cough Cele -Tramaine QID -IS -Aspiration precautions Dementia HAP HTN MARISELA FLOYD DO Jun 28, 2019 07:30
[2019-06-28 08:00] VITALS: BP 150/67
[2019-06-28 08:26] LABS: BILIRUBIN,URINE NEGATIVE (NEGATIVE); CLARITY,URINE CLEAR; COLOR,URINE YELLOW; GLUCOSE, URINE (UA) NEGATIVE (NEGATIVE); KETONES,URINE 1+ (NEGATIVE); LEUKOCYTE ESTERASE ,URINE 2+ (NEGATIVE); NITRITE,URINE NEGATIVE (NEGATIVE); PH,URINE 5 (5-9); PROTEIN,URINE 3+ (NEGATIVE); UROBILINOGEN,URINE NORMAL (NORMAL)
[2019-06-28 08:40] LABS: BACTERIA,URINE NEGATIVE /HPF; RBC,URINE TNTC /HPF
[2019-06-28] MEDS: BENZONATATE 100 MG (TESSALON) CAPSULE PO SCH ×2 (08:56→13:00)
[2019-06-28] MEDS: risperiDONE 0.25 MG (RisperDAL) TAB PO SCH (08:56)
[2019-06-28] MEDS: methylPREDNISolone 40 MG/ML (Solu-MEDROL) VIAL IV SCH (08:57)
[2019-06-28] MEDS: DILTIAZEM 180 MG (CARDIZEM CD) CAP PO SCH (08:57)
--- NOTE | 2019-06-28 09:09 | ED Respiratory ---
General Chief Complaint: Respiratory Problems Stated Complaint: ASPIRATION PNEUMONIA;SEPSIS;HYPOXIA RECENT CVA Nursing Triage Note: RETIREMENT REPORTS PATIENT ASPIRATED ON CRACKER AND MILK EARLIER PATIENT STATES "IT GOT STUCK" Source: patient, EMS, intermediate records, old records History of Present Illness Date Seen by Provider: Jun 24, 2019 Time Seen by Provider: 23:43 Initial Comments PT ARRIVES VIA EMS FROM [facility]. PT RECENTLY ADMITTED THERE 06/13/19--FROM [facility]. WAS LIVING AT HOME BY HERSELF PRIOR TO THAT PT WAS SEEN HER AND TRANSFERRED / ADMITTED TO [facility] MAY 31 WITH PNEUMONIA AND RESPIRATORY FAILURE--WAS INTUBATED AT THE TIME. PT ALSO HAD A STROKE AT THAT TIME, WITH RIGHT SIDE WEAKNESS, AND UNABLE TO SPEAK OR RESPOND--WAS FOUND LYING IN BED, WITH NOTED RIGHT SIDE WEAKNESS, APHASIA AND WAS ESSENTIALLY OBTUNDED, WITH EMESIS IN AND AROUND HER MOUTH--WAS INTUBATED AND TRANSFERRED. HAS HAD INCREASED SHORTNESS OF BREATH FOR THE LAST COUPLE OF DAYS, BUT REPORTEDLY CHOKED ON ANTONIO CRACKER AND MILK EARLIER THIS EVENING. PT IS SUPPOSED TO BE ON NECTAR THICK CONSISTENCY DUE TO HISTORY OF DIFFICULTY SWALLOWING. PT HAS HAD PRIOR CVA. PT HAD TEMP OF 99.3, AND O2 SAT 93% ON 2L/NC PT HAS A FREQUENT LOOSE PRODUCTIVE COUGH ON ARRIVAL, AND PT IS MOANING WITH EACH BREATH PT DENIES CHEST PAIN PT STATES SHE IS TO BE DNR/DNI PCP: DR. MANLEY Allergies and Home Medications Allergies Coded Allergies: No Known Drug Allergies (Unverified , 07/23/12) Home Medications Acetaminophen 325 Mg Tablet, 650 MG PO Q6H PRN for FEVER, (Reported) USE FOR FEVER >99.5 Albuterol Sulfate 2.5 Mg/0.5 Ml Vial.neb, 2.5 MG INH Q6H PRN for SHORTNESS OF BREATH, (Reported) Apixaban 5 Mg Tablet, 5 MG PO BID, (Reported) Atropine Sulfate 2 Ml Drops, 1-2 DROPS SL Q6H PRN for secretions Prescribed by: SHAHIDA DICKERSON on 06/28/19 1037 Diazepam 5 Mg Tablet, 5 MG PO DAILY PRN for ANXIETY, (Reported) Diltiazem HCl 180 Mg Capsule.er, 180 MG PO DAILY, (Reported) Furosemide 40 Mg Tablet, 40 MG PO DAILY, (Reported) Glimepiride 2 Mg Tablet, 2 MG PO DAILY, (Reported) Guaifenesin 100 Mg/5 Ml Liquid, 10 ML PO Q6H PRN for COUGH, (Reported) Guaifenesin 1,200 Mg Tab.er.12h, 1,200 MG PO BID, (Reported) Insulin Degludec 100 Unit/1 Ml Insuln.pen, 13 UNIT SQ DAILY, (Reported) Levothyroxine Sodium 50 Mcg Tablet, 50 MCG PO DAILY, (Reported) Lisinopril 10 Mg Tablet, 10 MG PO DAILY, (Reported) Oxycodone HCl 5 Mg Tablet, 5 MG PO Q6H PRN for PAIN-SEVERE, (Reported) Sulfamethoxazole/Trimethoprim 1 Each Tablet, 1 EACH PO BID, (Reported) START DATE 06-18-2019 FOR 10 DAYS Patient Home Medication List Home Medication List Reviewed: Yes Review of Systems Review of Systems Constitutional: see HPI, fever EENTM: No throat pain Respiratory: see HPI, cough, short of breath Cardiovascular: no symptoms reported; No chest pain Gastrointestinal: no symptoms reported; No nausea, No vomiting : Yes Psychiatric/Neurological: No Symptoms Reported, Pre-Existing Deficit Hematologic/Lymphatic: No Symptoms Reported Past Tbxxzyt-Knhaot-Arambe Hx Past Med/Social Hx: Reviewed Nursing Past Med/Soc Hx Patient Social History Alcohol Use: Denies Use Recreational Drug Use: No Smoking Status: Never a Smoker 2nd Hand Smoke Exposure: No Recent Foreign Travel: No Contact w/Someone Who Travel: No Recent Infectious Disease Expo: No Recent Hopitalizations: No Physical Abuse: No Sexual Abuse: No Mistreated: No Fear: No Immunizations Up To Date Tetanus Booster (TDap): Unknown PED Vaccines UTD: Yes Date of Pneumonia Vaccine: Aug 28, 1999 Date of Influenza Vaccine: Aug 28, 2015 Seasonal Allergies Seasonal Allergies: No Past Medical History Surgeries: Yes (HIP REPLACEMENTS; KNEE REPLACEMENT; BACK SURGERY; HYST/BSO; LEFT CARPAL TUNNEL) Gallbladder, Hysterectomy, Joint Replacement, Oophorectomy, Orthopedic Respiratory: Yes (PNEUMONIA WITH RESPIRATORY FAILURE WITH CVA 05/31/19 AND INTUBATED/TRANSFERRED TO [facility]) Pneumonia, Sleep Apnea Cardiac: Yes (SINUS TACHYCARDIA; RBBB; SYNCOPAL EPISODE) Cardiomyopathy, Hypertension, Irregular Heartbeat, Syncope Neurological: Yes (ENCEPHALOPATHY) Dementia (?), 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 Physical Exam Vital Signs - First Documented 06/24/19 23:40 Temp 99.3 Pulse 124 Resp 24 B/P (MAP) 138/64 (88) Pulse Ox 90 O2 Delivery Nasal Cannula O2 Flow Rate 3.00 FiO2 90 Capillary Refill : Less Than 3 Seconds Height: 5'1.00" Weight: 161lbs. 2.0oz. 73.036273yt; 29.5 BMI Method:Stated General Appearance: WD/WN, other (LETHARGIC, MOANING WITH EACH BREATH, MUCH UPPER AIRWAY NOISE. ) HEENT: normal ENT inspection Neck: normal inspection Respiratory: other ( ABOVE. 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, alert (BUT LETHARGIC), oriented x 3, other Skin: normal color, warm/dry Focused Exam Lactate Level 06/24/19 23:52: Lactic Acid Level 3.08*H Lactic Acid Level Laboratory Tests Test 06/24/19 23:52 Lactic Acid Level 3.08 MMOL/L (0.50-2.00) *H Procedures/Interventions Date of ETT Placement: May 31, 2019 Time of ETT Placement: 1730 Progress/Results/Core Measures Suspected Sepsis Recent Fever Within 48 Hours: No Infection Criteria Present: Documented Infection New/Unexplained Altered Menta: No Sepsis Screen: No Definite Risk SIRS Temperature:99.1 Pulse: 112 Respiratory Rate: 22 Blood Pressure 138 /68 Mean: 91 06/24/19 23:52: Lactic Acid Level 3.08*H Laboratory Tests 06/24/19 23:52: INR Comment 1.6H, Total Bilirubin 0.2 Results/Orders Lab Results Laboratory Tests Test 06/24/19 23:52 Range/Units White Blood Count 7.2 4.3-11.0 10^3/uL Red Blood Count 3.99 L 4.35-5.85 10^6/uL Hemoglobin 9.7 L 11.5-16.0 G/DL Hematocrit 32 L 35-52 % Mean Corpuscular Volume 80 80-99 FL Mean Corpuscular Hemoglobin 24 L 25-34 PG Mean Corpuscular Hemoglobin Concent 31 L 32-36 G/DL Red Cell Distribution Width 16.7 H 10.0-14.5 % Platelet Count 274 130-400 10^3/uL Mean Platelet Volume 9.3 7.4-10.4 FL Neutrophils (%) (Auto) 59 42-75 % Lymphocytes (%) (Auto) 24 12-44 % Monocytes (%) (Auto) 9 0-12 % Eosinophils (%) (Auto) 7 0-10 % Basophils (%) (Auto) 1 0-10 % Neutrophils # (Auto) 4.3 1.8-7.8 X 10^3 Lymphocytes # (Auto) 1.7 1.0-4.0 X 10^3 Monocytes # (Auto) 0.7 0.0-1.0 X 10^3 Eosinophils # (Auto) 0.5 H 0.0-0.3 10^3/uL Basophils # (Auto) 0.0 0.0-0.1 10^3/uL Prothrombin Time 19.9 H 12.2-14.7 SEC INR Comment 1.6 H 0.8-1.4 Activated Partial Thromboplast Time 37 H 24-35 SEC Sodium Level 137 135-145 MMOL/L Potassium Level 3.7 3.6-5.0 MMOL/L Chloride Level 97 L 98-107 MMOL/L Carbon Dioxide Level 24 21-32 MMOL/L Anion Gap 16 H 5-14 MMOL/L Blood Urea Nitrogen 12 7-18 MG/DL Creatinine 0.80 0.60-1.30 MG/DL Estimat Glomerular Filtration Rate > 60 BUN/Creatinine Ratio 15 Glucose Level 200 H 70-105 MG/DL Lactic Acid Level 3.08 *H 0.50-2.00 MMOL/L Calcium Level 9.4 8.5-10.1 MG/DL Corrected Calcium 9.9 8.5-10.1 MG/DL Magnesium Level 1.5 L 1.8-2.4 MG/DL Total Bilirubin 0.2 0.1-1.0 MG/DL Aspartate Amino Transf (AST/SGOT) 21 5-34 U/L Alanine Aminotransferase (ALT/SGPT) 17 0-55 U/L Alkaline Phosphatase 90 40-136 U/L Troponin I < 0.028 <0.028 NG/ML B-Type Natriuretic Peptide 112.9 H <100.0 PG/ML Total Protein 8.2 6.4-8.2 GM/DL Albumin 3.4 3.2-4.5 GM/DL Micro Results Microbiology 06/25/19 Blood Culture - Preliminary, Resulted No growth 06/24/19 Blood Culture - Preliminary, Resulted No growth 06/24/19 Gram Stain - Final, Complete 06/24/19 Sputum Culture - Final, Complete Usual upper respiratory mariylnn My Orders Orders - ASHWINI BENITEZ DO Ed Iv/Invasive Line Start (06/24/19 23:44) Ekg Tracing (06/24/19:44) O2 (06/24/19 23:44) Monitor-Rhythm Ecg Trace Only (06/24/19 23:44) BNP (06/24/19 23:44) Cbc With Automated Diff (06/24/19 23:44) Comprehensive Metabolic Panel (06/24/19 23:44) Lactic Acid Analyzer (06/24/19 23:44) Magnesium (06/24/19 23:44) Protime With Inr (06/24/19 23:44) Partial Thromboplastin Time (06/24/19 23:44) Ua Culture If Indicated (06/24/19 23:44) Blood Culture (06/24/19:44) Sputum Culture (06/24/19 23:44) Troponin I (06/24/19 23:44) Urine Culture (06/24/19 23:44) Ed Iv/Invasive Line Start (06/24/19 23:44) Ed Iv/Invasive Line Start (06/24/19 23:44) Vital Signs Adult Sepsis Patie Q15M (06/24/19 23:44) O2 (06/24/19 23:44) Remove Rings In Anticipation O (06/24/19 23:44) Cefepime Injection (Maxipime Injection) (06/24/19 23:45) Albuterol/Ipra Inhalation Soln (Duoneb I (06/24/19 23:51) Methylprednisolone Sod Succ (Solu-Medrol (06/25/19 00:00) Albuterol/Ipra Inhalation Soln (Duoneb I (06/25/19 00:00) Rt Request For Service (06/24/19 23:57) Svn Small Volume Nebulizer (06/24/19 23:57) Chest 1 View, Ap/Pa Only (06/25/19 00:01) Magnesium 1 Gm/100 Ml Ivpb (Magnesium Valles (06/25/19 00:45) Ed Iv/Invasive Line Start (06/25/19 00:42) Ns Iv 1000 Ml (Sodium Chloride 0.9%) (06/25/19 00:42) Catheter(Urinary) Insert & Ass 03,15 (06/25/19 00:43) Ns Iv 1000 Ml (Sodium Chloride 0.9%) (06/25/19 00:37) Vital Signs/I&O 06/24/19 06/24/19 06/24/19 06/25/19 23:40 23:40 23:40 00:31 Temp 99.3 Pulse 124 Resp 24 B/P (MAP) 138/64 (88) Pulse Ox 90 90 97 O2 Delivery Nasal Cannula Nasal Cannula Nasal Cannula O2 Flow Rate 3.00 3.00 FiO2 90 Capillary Refill : Less Than 3 Seconds Blood Pressure Mean: 91 Progress Note : Progress Note INITIAL O2 SATS 91-925 ON 2L/NC--UP TO 94-95% ON 3L/NC RT FOR NEB TREATMENT AND SUCTIONING WITH IMPROVEMENT IN LUNG SOUNDS AND BREATHIN G IS LESS LABORED AND PT IS NO LONGER MOANING WITH BREATHING. PT ABLE TO REST QUIETLY NO DETERIORATION IN PT'S CONDITION DURING ER STAY PT'S "ADOPTED" SON IS HERE WITH PT, PT'S SON WHO IS DPOA, IS CURRENTLY OUT OF TOWN ECG Initial ECG Impression Date: Jun 24, 2019 Initial ECG Impression Time: 23:51 Initial ECG Rate: 120 Initial ECG Rhythm: S.Tach (RBBB, LAFB, PVC) Initial ECG Comparisson: Unchanged Diagnostic Imaging Comments CXR--BILATERAL INFILTRATES, PENDING RADIOLOGIST REVIEW Reviewed: Reviewed by Wy Departure Communication (Admissions) 0045--SPOKE WITH DR. BAKER, ACCEPTS PT FOR ADMIT Impression Primary Impression: Pneumonia Qualified Codes: J69.0 - Pneumonitis due to inhalation of food and vomit Additional Impressions: POSSIBLE ASPIRATION Dysphagia Recent cerebrovascular accident (CVA) RECENT ASPIRATION PNEUMONIA WITH INTUBATION/RESPIRATORY FAILURE 05/31/19 IDDM (insulin dependent diabetes mellitus) HTN (hypertension) SEPSIS Hypoxia Disposition: ADMITTED INPATIENT Condition: Improved Admissions Decision to Admit Reason: Admit from ER (General) Decision to Admit/Date: Jun 25, 2019 Time/Decision to Admit Time: 00:45 Departure-Patient Inst. Referrals: SANDRA MANLEY DO (PCP) Primary Care Physician Scripts Atropine Sulfate (Atropine Sulfate) 2 Ml Drops 1-2 DROPS SL Q6H PRN for secretions, #1 EACH Prov: SHAHIDA DICKERSON MD 06/28/19 ASHWINI BENITEZ DO Jun 28, 2019 09:09
--- NOTE | 2019-06-28 09:40 | NUR ---
Palliative Care RN to room to make sure that son, Niraj and Freddy from [facility] had any needs at this time. Son, Niraj, was very upset talking to Freddy about how he was very unhappy due to not having talked to any doctor since being here and that he had heard from some nurses that Dr. Alvarez was "done with her". I expressed to him that I wasn't sure what all that was about because we were still treating her and that didn't sound like . Dr. Bueno notified and will try to talk to him.
[2019-06-28] MEDS ORDERED: ATROPINE 1% OPHTHALMIC SOLN 2 ML SL PRN (10:30)
--- NOTE | 2019-06-28 10:32 | NUR ---
Dr. Bueno and this PC RN met with patient and son, Niraj. He was calmed down upon arrival to room as an almost night and day change in his demeanor. Dr. Bueno explained to him about the difficulty she is having with her swallowing and this risk associated to it. Patient has verbalized in the past and also during this conversation that she does not want to have any more surgeries and does not want to return to the hospital. With this being her wishes son Niraj has elected to go with [facility] upon discharge back to previous placement at [facility]. He is heading there to fill out the Medicaid application. I spoke with Amee at [facility] and she will accept the patient back BALJINDER pending with hospice and will call me back with a tack picker time. THey will bring w/c and O2.
--- NOTE | 2019-06-28 10:32 | Discharge Summary ---
Diagnosis/Chief Complaint Date of Admission Jun 25, 2019 at 12:45 am Date of Discharge Admission Diagnosis Severe Sepsis, HAP Discharge Diagnosis (1) Severe sepsis Status: Acute (2) Pneumonia Status: Acute (3) Aspiration into airway Status: Acute (4) Dementia Status: Chronic (5) Normocytic anemia Status: Chronic (6) Chronic pain Status: Chronic (7) Hypothyroidism Status: Chronic (8) Hypertension Status: Acute Discharge Summary Discharge Physical Exam Allergies: Coded Allergies: No Known Drug Allergies (Unverified , 07/23/12) Vitals & I&Os Vital Signs Date Time Temp Pulse Resp B/P (MAP) Pulse Ox O2 Delivery O2 Flow Rate FiO2 06/28/19 13:28 101 22 150/67 94 Nasal Cannula 5.00 90 06/28/19 08:00 98.5 Hospital Course Labs (last 24 hrs) Microbiology 06/25/19 Blood Culture - Final, Complete No growth 06/24/19 Gram Stain - Final, Complete 06/24/19 Sputum Culture - Final, Complete Usual upper respiratory marilynn 06/25/19 Urine Culture - Final, Complete NO GROWTH Patient resulted labs reviewed. Pending Labs Imaging: Reviewed Imaging Report Discharge Home Medications: Active Scripts Active Atropine Sulfate 2 Ml Drops 1-2 Drops SL Q6H PRN Reported Acetaminophen 325 Mg Tablet 650 Mg PO Q6H PRN USE FOR FEVER >99.5 Oxycodone HCl 5 Mg Tablet 5 Mg PO Q6H PRN Mucinex (Guaifenesin) 1,200 Mg Tab.er.12h 1,200 Mg PO BID Guaifenesin 100 Mg/5 Ml Liquid 10 Ml PO Q6H PRN Lasix (Furosemide) 40 Mg Tablet 40 Mg PO DAILY Diltiazem ER (Diltiazem HCl) 180 Mg Capsule.er 180 Mg PO DAILY Diazepam 5 Mg Tablet 5 Mg PO DAILY PRN Albuterol Sulfate 2.5 Mg/0.5 Ml Vial.neb 2.5 Mg INH Q6H PRN Levothyroxine Sodium 50 Mcg Tablet 50 Mcg PO DAILY Instructions to patient/family Please see electronic discharge instructions given to patient. Clinical Quality Measures DVT/VTE Risk/Contraindication: Risk Factor Score Per Nursin RFS Level Per Nursing on Admit: 4+=Very High Problem Qualifiers (1) Pneumonia: Pneumonia type: aspiration pneumonia Aspiration pneumonia type: unspecified Laterality: bilateral Lung location: lower lobe of lung Qualified Codes: J69.0 - Pneumonitis due to inhalation of food and vomit (2) Aspiration into airway: Encounter type: subsequent encounter Qualified Codes: T17.908D - Unspecified foreign body in respiratory tract, part unspecified causing other injury, subsequent encounter (3) Dementia: Dementia type: unspecified type Dementia behavioral disturbance: without behavioral disturbance Qualified Codes: F03.90 - Unspecified dementia without behavioral disturbance (4) Chronic pain: Chronic pain type: chronic pain syndrome Qualified Codes: G89.4 - Chronic pain syndrome (5) Hypothyroidism: Hypothyroidism type: unspecified Qualified Codes: E03.9 - Hypothyroidism, unspecified (6) Hypertension: Hypertension type: essential hypertension Qualified Codes: I10 - Essential (primary) hypertension SHAHIDA DICKERSON MD Jun 28, 2019 10:31
[2019-06-28] MEDS ORDERED: ATRO2DRO4 SL (10:37)
[2019-06-28] MEDS: ENOXAPARIN 40 MG/0.4 ML (LOVENOX) SYR SC SCH (10:38)
--- NOTE | 2019-06-28 11:11 | Physical Therapy Daily Note ---
PT Daily Note-Current Subjective Patient very confused today and unable to follow simple direction. RN present. Mental Status Patient Orientation: Confused Attachments: Oxygen Transfers Therapy Code Descriptions/Definitions Functional [place] Measure: 0=Not Assessed/NA 4=Minimal Assistance 1=Total Assistance 5=Supervision or Setup 2=Maximal Assistance 6=Modified [place] 3=Moderate Assistance 7=Complete [place] Therapy Quality Codes: 6 Independent with activity with or without an assistive device 5 Patient requires set up or clean up by helper. Patient completes activity by themselves 4 Supervision or touching assist (CGA). [place] provide cues , steadying assist 3 The helper provides less than half the effort to complete the activity 2 The helper provides more than half the effort to complete the activity 1 Dependent. The helper does all the effort to complete an activity 7 Patient refused to complete or attempt activity 9 The patient did not perform the activity before the current illness or injury 88 Not attempted due to Medical conditions or safety concerns Transfers (B, C, W/C) (FIM): 3 Scootin Rollin Supine to/from Sit: 3 Sit to/from Stand: 3 Bed to/from Chair: 3 Patient unable to negotiate FWW on this date requiring PT assist for all mobility and safety Assessment Patient returned to bed with 4 rails up and a alarm activated. Patient positioned slight side lying left in bed. RN present during treatment. PT Short Term Goals Short Term Goals Transfers (B,C,W/C) (FIM): 4 PT Custodial Goals Teacher Dancing Goals PT Teacher Dancing Goals Time Frame: Jul 02, 2019 Transfers (B,C,W/C) (FIM): 5 Gait (FIM): 1 Gait distance (FIM): 1=up to 49 ft Distance: 45' Gait Level of Assist: 4 Gait Assistive Device: FWW PT Plan Treatment/Plan Treatment Plan: Continue Plan of Care Treatment Plan: Bed Mobility, Education, Functional Activity Akhil, Functional Strength, Gait, Safety, Therapeutic Exercise, Transfers Treatment Duration: Jul 02, 2019 Frequency: 6 times per week Estimated Hrs Per Day: .25 hour per day Patient and/or Family Agrees t: Yes Time/GCodes Time In: 1025 Time Out: 1034 Total Billed Treatment Time: 9 Total Billed Treatment 1 visit FA 9 min CB NEW PT Jun 28, 2019 11:11
--- NOTE | 2019-06-28 12:36 | Discharge Summary ---
Diagnosis/Chief Complaint Date of Admission Jun 25, 2019 at 12:45 am Date of Discharge Discharge Date: Jun 28, 2019 Admission Diagnosis Severe Sepsis, HAP Discharge Diagnosis (1) Severe sepsis Status: Acute (2) Pneumonia Status: Acute (3) Aspiration into airway Status: Acute (4) Dementia Status: Chronic (5) Normocytic anemia Status: Chronic (6) Chronic pain Status: Chronic (7) Hypothyroidism Status: Chronic (8) Hypertension Status: Acute Discharge Summary Procedures/Consulations Pulm- Dr Alvarez Cardiology- Dr Thomas Discharge Physical Exam Allergies: Coded Allergies: No Known Drug Allergies (Unverified , 07/23/12) Vitals & I&Os Vital Signs Date Time Temp Pulse Resp B/P (MAP) Pulse Ox O2 Delivery O2 Flow Rate FiO2 06/28/19 10:28 94 Nasal Cannula 6.00 06/28/19 08:00 98.5 101 22 150/67 (94) 06/25/19 04:48 21 General Appearance: No Apparent Distress, Chronically ill Neurologic/Psychiatric: Alert, Oriented x3 Hospital Course Pt is an 89yoCF who was admitted with severe sepsis from aspiration pneumonia. She was treated with Zosyn and underwent speech therapy and video swallow. It showed vallecular retention but not aspiration. She required thickened liquids to avoid aspiration though which she declined. She stated she didn't want surgery or to comply with thickening liquids and just wanted to drink coffee. We discussed her goals of care and she stated she wanted to return to the long term and not come back to the hospital. Palliative Care and Hospice were c onsulted and I discussed this option with patient and family. They elected to enroll in hospice and return to the [facility] for comfort measures. Labs (last 24 hrs) Laboratory Tests 06/28/19 07:40: Urine Color YELLOW, Urine Clarity CLEAR, Urine pH 5, Urine Specific Abbott 1.020, Urine Protein 3+H, Urine Glucose (UA) NEGATIVE, Urine Ketones 1+H, Urine Nitrite NEGATIVE, Urine Bilirubin NEGATIVE, Urine Urobilinogen NORMAL, Urine Leukocyte Esterase 2+H, Urine RBC (Auto) 5+H, Urine RBC TNTCH, Urine WBC 2-5, Urine Squamous Epithelial Cells NONE, Urine Crystals NONE, Urine Bacteria NEGATIVE, Urine Casts NONE, Urine Mucus NEGATIVE, Urine Culture Indicated NO Microbiology 06/25/19 Blood Culture - Preliminary, Resulted No growth 06/24/19 Gram Stain - Final, Complete 06/24/19 Sputum Culture - Final, Complete Usual upper respiratory marilynn 06/25/19 Urine Culture - Final, Complete NO GROWTH Patient resulted labs reviewed. Pending Labs Laboratory Tests 06/28/19 07:40: Urine Color YELLOW, Urine Clarity CLEAR, Urine pH 5, Urine Specific Abbott 1.020, Urine Protein 3+, Urine Glucose (UA) NEGATIVE, Urine Ketones 1+, Urine Nitrite NEGATIVE, Urine Bilirubin NEGATIVE, Urine Urobilinogen NORMAL, Urine Leukocyte Esterase 2+, Urine RBC (Auto) 5+, Urine RBC TNTC, Urine WBC 2-5, Urine Squamous Epithelial Cells NONE, Urine Crystals NONE, Urine Bacteria NEGATIVE, Urine Casts NONE, Urine Mucus NEGATIVE, Urine Culture Indicated NO Imaging: Reviewed Imaging Report Discussion & Recommendations Discharge Planning: >30 minutes discharge planning Discharge Home Medications: Active Scripts Active Atropine Sulfate 2 Ml Drops 1-2 Drops SL Q6H PRN Reported Acetaminophen 325 Mg Tablet 650 Mg PO Q6H PRN USE FOR FEVER >99.5 Oxycodone HCl 5 Mg Tablet 5 Mg PO Q6H PRN Mucinex (Guaifenesin) 1,200 Mg Tab.er.12h 1,200 Mg PO BID Guaifenesin 100 Mg/5 Ml Liquid 10 Ml PO Q6H PRN Lasix (Furosemide) 40 Mg Tablet 40 Mg PO DAILY Diltiazem ER (Diltiazem HCl) 180 Mg Capsule.er 180 Mg PO DAILY Diazepam 5 Mg Tablet 5 Mg PO DAILY PRN Albuterol Sulfate 2.5 Mg/0.5 Ml Vial.neb 2.5 Mg INH Q6H PRN Levothyroxine Sodium 50 Mcg Tablet 50 Mcg PO DAILY Instructions to patient/family Please see electronic discharge instructions given to patient. Clinical Quality Measures DVT/VTE Risk/Contraindication: Risk Factor Score Per Nursin RFS Level Per Nursing on Admit: 4+=Very High Problem Qualifiers (1) Pneumonia: Pneumonia type: aspiration pneumonia Aspiration pneumonia type: unspecified Laterality: bilateral Lung location: lower lobe of lung Qualified Codes: J69.0 - Pneumonitis due to inhalation of food and vomit (2) Aspiration into airway: Encounter type: subsequent encounter Qualified Codes: T17.908D - Unspecified foreign body in respiratory tract, part unspecified causing other injury, subsequent encounter (3) Dementia: Dementia type: unspecified type Dementia behavioral disturbance: without beh avioral disturbance Qualified Codes: F03.90 - Unspecified dementia without behavioral disturbance (4) Chronic pain: Chronic pain type: chronic pain syndrome Qualified Codes: G89.4 - Chronic pain syndrome (5) Hypothyroidism: Hypothyroidism type: unspecified Qualified Codes: E03.9 - Hypothyroidism, unspecified (6) Hypertension: Hypertension type: essential hypertension Qualified Codes: I10 - Essential (primary) hypertension SHAHIDA DICKERSON MD Jun 28, 2019 12:36 pm
--- NOTE | 2019-06-28 13:20 | NUR ---
REPORT CALLED TO NURSE AT [facility],
--- NOTE | 2019-06-28 13:21 | NUR ---
CLARISSA MILES discharged to [facility]. SON notified of discharge and report given to NURSE AT [facility]. CLARISSA MILES belongings sent with . Skin dry and intact; no breakdown noted. Vital signs are stable at time of discharge. Condition is stable at time of discharge. Discharge instructions and copies of H&P, discharge summary, physician's order, lab reports, consultation reports, other dictated reports, diagnostic imaging reports, Advance Directive, eMAR, vital signs, intake and output sent with PATIENT AND STAFF. Patient discharged from [facility] on 06/28/19 at 1320. CLARISSA MILES left floor via W/C, accompanied by STAFF. CLARISSA MILES and family/DPOA notified and verbalize understanding of discharge to [facility].
[2019-06-28 13:28] VITALS: BP 150/67
--- NOTE | 2019-06-28 13:43 | Speech Therapy Daily Note ---
Speech Daily Progress Note Subjective Date Seen by Provider: Jun 28, 2019 Time Seen by Provider: 00:15 Patient was asleep and woke to verbal input. Patient was disoriented and frequently requested her son, Jacob. Patient had to be redirected frequently and verbally reminded to use call light if needing nurse assistance. Objective Patient refused PO trials of solids. Patient had wet, gurgly voice quality and had volitional cough with no clearing. Patient used suction x1. Patient tolerated trials x3 of nectar thick liquids with no overt s/s aspiration. Assessment Assessment Current Status: Fair Progress Treatment Plan Discontinue ST Communication Comprehension: 5 Expression: 5 Social Cognition Social Interaction: 6 Problem Solvin Memory: 5 Speech Short Term Goals Short Term Goals Short Term Goals The patient will tolerate least restrictive diet level without s/s aspiration at 90% or greater. Patient will utilize compensatory strategies as trained for safe oral intake at 90% or greater with minimal verbal cues. Comprehension: 5 Expression: 5 Social Interaction: 6 Problem Solvin Memory: 5 Speech Senior Architectural Designer Goals Senior Architectural Designer Goals Patient will maintain adequate nutrition/hydration via safe, effective swallow function Comprehension: 5 Expression: 5 Social Interaction: 6 Problem Solvin Memory: 5 Speech-Plan Patient/Family Goals Patient/Family Goals: Safe swallowing Treatment Plan Speech Therapy Treatment Plan: Discontinue ST Patient has inconsistent success with regular solids and requires constant monitoring and assistance during feeding. At this time, dysphagia II and nectar thick liquids are recommended for her diet. Patient was tolerating dysphagia II solids and nectar thick liquids during bedside and MBSS exam. Treatment Duration: Jun 28, 2019 Frequency: 4 times per week Estimated Hrs Per Day: .25 hour per day Rehab Potential: Fair Barriers to Learning: cognitive-communication, dysphagia Pt/Family Agrees to Plan: Yes Safety Risks/Education Teaching Recipient: Patient Teaching Methods: Discussion Response to Teaching: Verbalize Understanding Education Topics Provided: room safety, swallow safety Time Speech Therapy Time In: 11:40 Speech Therapy Time Out: 11:55 Total Billed Time: 15 Billed Treatment Time 1, PAN Oswald Jun 28, 2019 13:43
--- NOTE | 2019-06-28 13:46 | Therapy Team Discharge Summary ---
Therapy Discharge Summary Discharge Recommendations Date of Discharge Jun 28, 2019 at 13:25 Therapy D/C Recommendations: 24 hr Supervision, [facility] (TCU/NH) Occupational Therapy Decreased Activ Tolerance, Decreased Safety Aware, Decreased UE Strength, Impaired Self-Care Skills Speech-Language Pathology Patient is recommended to continue dysphagia II solids and nectar thick liquids. Patient should be assisted and monitored during feedings. Recommendations include sitting upright 90 degrees, taking small bites, and alternating bites and sips. PT Senior Living Goals Senior Living Goals PT Senior Living Goals Time Frame: Jul 02, 2019 Transfers (B,C,W/C) (FIM): 5 Rollin Gait (FIM): 1 Gait distance (FIM): 1=up to 49 ft Distance: 45' Gait Level of Assist: 4 Gait Assistive Device: FWW OT Senior Living Goals Cashier Associate Goals Eating (FIM): 6 Groomin Bathing(FIM): 5 Toileting(FIM): 5 Transfers (B,C,W/C) (FIM): 5 Toilet/Commode Transfer(FIM): 5 Comprehension(FIM): 5 Expression (FIM): 5 Social Interaction(FIM): 6 Problem Solving(FIM): 5 Memory(FIM): 5 Additional Goals: 1-Demonstrate ADL Tasks, 2-Verbalize Understanding, 3- ImproveStrength/Akhil 1=Demonstrate adherence to instructed precautions during ADL tasks. 2=Patient will verbalize/demonstrate understanding of assistive devices/modifications for ADL. 3=Patient will improve strength/tolerance for activity to enable patient to perform ADL's. Speech Cashier Associate Goals Senior Living Goals Patient will maintain adequate nutrition/hydration via safe, effective swallow function Comprehension: 3 Expression: 4 Social Interaction: 4 Problem Solvin Memory: 3 PAN EDMOND Jun 28, 2019 13:46
[2019-06-29] MEDS ORDERED: SCOPOLAMINE PATCH REMOVAL TP SCH (13:15)
== END 2019-06-28 13:25 | disposition hospice, inpatient (51) | DRG 871 ==
LOC: EDUNIT# 23:39 → ER 23:41 → ICU 06-25 00:45 → 4TH 06-26 08:31
PROVIDERS: ADMIT Internal Medicine; ATTEND Internal Medicine
DX: A41.9 Sepsis, unspecified organism (principal); R65.20 Severe sepsis without septic shock; J69.0 Pneumonitis due to inhalation of food and vomit; T17.928A Food in respiratory tract, part unspecified causing other injury, initial encounter; E87.2 Acidosis; F03.90 Unspecified dementia, unspecified severity, without behavioral disturbance, psychotic disturbance, mood disturbance, and anxiety; D64.9 Anemia, unspecified; G89.4 Chronic pain syndrome; Z66 Do not resuscitate; E11.9 Type 2 diabetes mellitus without complications; R07.9 Chest pain, unspecified; E03.9 Hypothyroidism, unspecified; I10 Essential (primary) hypertension; G47.30 Sleep apnea, unspecified; M54.9 Dorsalgia, unspecified; M19.91 Primary osteoarthritis, unspecified site; F41.9 Anxiety disorder, unspecified; Z79.4 Long term (current) use of insulin; Z86.73 Personal history of transient ischemic attack (TIA), and cerebral infarction without residual deficits
CPT/HCPCS: 36415; 51702; 71045; 71046; 74230; 80048; 80053; 81000; 82962; 83605; 83735; 83880; 84145; 84484; 85007; 85025; 85027; 85610; 85730; 87040; 87070; 87088; 87205; 93005; 93041; 94640; 94664; 94760; 96361; 96365; 96375

== ENCOUNTER 2019-08-01 04:52 | Emergency (ER) | payer MEDICARE ==
[~2019-08-01] VITALS: Ht 165.1 cm; Wt 77.1 kg
[~2019-08-01 04:52] MED LIST changes: +ACET325T49 PO; +ALB0.5V INH; +APIX5TAB PO; +ATRO2DRO4 SL; +FURO-124 PO; +GLIM2TAB PO; +GUAI100L13 PO; +GUAI120013 PO; +INSU100I32 SQ; +LEVO50TA6 PO; +LISI10TA2 PO; +OXYC-529 PO; +SULF1TAB35 PO
--- NOTE | 2019-08-01 05:04 | ED Fall/Injury ---
General Chief Complaint: Trauma-Non Activation Stated Complaint: FALL Nursing Triage Note: EMS advise that the patient fell at 0355 this morning. They deny loss of consciousness and state the patient was trying to get up to get dressed. Source: patient, family, EMS Exam Limitations: no limitations (CHARLENE LIMON) History of Present Illness Date Seen by Provider: Aug 01, 2019 Time Seen by Provider: 04:46 Initial Comments [facility] with chief complaint she had a fall witnessed this. She struck her head and left parietal scalp but does not have loss of consciousness. She has diabetes. She does not take blood thinners. She says she is having pain in her left shoulder but she always has pain. She denies dysuria cough shortness of breath fever. Recently she was treated for pneumonia. Patient was on oxygen up until a week ago secondary to the pneumonia but that was subsequently discontinued. Location Injury Occurred: prison (CHARLENE LIMON) Allergies and Home Medications Allergies Coded Allergies: No Known Drug Allergies (Unverified , 07/23/12) Home Medications Acetaminophen 325 Mg Tablet, 650 MG PO Q6H PRN for FEVER, (Reported) USE FOR FEVER >99.5 Albuterol Sulfate 2.5 Mg/0.5 Ml Vial.neb, 2.5 MG INH Q6H PRN for SHORTNESS OF BREATH, (Reported) Atropine Sulfate 2 Ml Drops, 1-2 DROPS SL Q6H PRN for secretions Prescribed by: SHAHIDA DICKERSON on 06/28/19 1037 Diazepam 5 Mg Tablet, 5 MG PO DAILY PRN for ANXIETY, (Reported) Diltiazem HCl 180 Mg Capsule.er, 180 MG PO DAILY, (Reported) Furosemide 40 Mg Tablet, 40 MG PO DAILY, (Reported) Guaifenesin 100 Mg/5 Ml Liquid, 10 ML PO Q6H PRN for COUGH, (Reported) Guaifenesin 1,200 Mg Tab.er.12h, 1,200 MG PO BID, (Reported) Levothyroxine Sodium 50 Mcg Tablet, 50 MCG PO DAILY, (Reported) Oxycodone HCl 5 Mg Tablet, 5 MG PO Q6H PRN for PAIN-SEVERE, (Reported) Patient Home Medication List Home Medication List Reviewed: Yes (CHARLENE LIMON) Review of Systems Review of Systems Constitutional: No chills, No diaphoresis Eyes: Denies Blindness, Denies Blurred Vision Ears, Nose, Mouth, Throat: denies ear pain, denies ear discharge Respiratory: No cough, No short of breath Cardiovascular: No chest pain, No syncope Gastrointestinal: No abdominal pain, No constipation, No diarrhea Genitourinary: No discharge, No dysuria Musculoskeletal: joint pain (left) (CHARLENE LIMON) Past Whugmks-Zwdyal-Ielusv Hx Patient Social History Alcohol Use: Denies Use Recreational Drug Use: No Smoking Status: Unknown if Ever Smoked 2nd Hand Smoke Exposure: No Recent Hopitalizations: No (CHARLENE LIMON) Immunizations Up To Date Tetanus Booster (TDap): Unknown PED Vaccines UTD: Yes Date of Pneumonia Vaccine: Aug 28, 1999 Date of Influenza Vaccine: Aug 28, 2015 (CHARLENE LIMON) Seasonal Allergies Seasonal Allergies: No (CHARLENE LIMON) Past Medical History Surgeries: Yes Gallbladder, Hysterectomy, Joint Replacement, Oophorectomy, Orthopedic Respiratory: Yes Pneumonia, Sleep Apnea Cardiac: Yes (SINUS TACHYCARDIA; RBBB; SYNCOPAL EPISODE) Cardiomyopathy, Hypertension, Irregular Heartbeat, Syncope Neurological: Yes (ENCEPHALOPATHY) 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 Physical Exam Vital Signs Vital Signs - First Documented (HERMES FORD MD) Vital Signs Capillary Refill : (CHARLENE LIMON) Height, Weight, BMI Height: 5'1.00" Weight: 161lbs. 2.0oz. 73.967218ye; 29.5 BMI Method:Stated General Appearance: WD/WN, no apparent distress HEENT: PERRL/EOMI, normal ENT inspection, TMs normal, pharynx normal, other (left occipital/parietal scalp has a 2-3 cm hematoma superficial laceration that is hemostatic.) Neck: non-tender, full range of motion, supple, normal inspection Cardiovascular: normal peripheral pulses, regular rate, rhythm Respiratory: normal breath sounds, no respiratory distress, no accessory muscle use Peripheral Pulses: 2+ Radial Pulses (R), 2+ Radial Pulses (L) Gastrointestinal: non tender, soft Extremities: normal inspection, normal capillary refill, other (left shoulder anterior tender to palpation) Neurologic/Psychiatric: alert, normal mood/affect (CHARLENE LIMON) Chaka Coma Score Best Eye Response: (4) Open Spontaneously Best Verbal Response: (5) Oriented Best Motor Response: (6) Obeys Commands Chaka Total: 15 (CHARLENE LIMON) Procedures/Interventions Date of ETT Placement: May 31, 2019 Time of ETT Placement: 1729 (CHARLENE LIMON) Wound Location: Scalp Other Wound Location Left occiput Wound Length (cm): 2 Wound's Depth, Shape: superficial Wound Explored: clean Irrigated w/ Saline (ccs): 50 Betadine Prep?: Yes (chlorhexidine and sterile saline) Wound Debrided: minimal Other Closure Supply: Wound Adhesive (CHARLENE LIMON) Progress/Results/Core Measures Results/Orders Lab Results Laboratory Tests Test 08/01/19 05:01 Range/Units Glucometer 133 H 70-110 MG/DL (HERMES FORD MD) Vital Signs/I&O 08/01/19 08/01/19 04:57 04:57 Temp 97.8 97.6 Pulse 101 101 Resp 16 16 B/P (MAP) 134/72 (92) 134/72 (92) Pulse Ox 100 100 O2 Delivery Room Air Room Air (HERMES FORD MD) Progress Progress Note #1: Time: 05:02 Progress Note Blood sugar 133. Plan to get an x-ray of her left shoulder and CT of her head. We'll clean up the wound on her head and do a closure. Progress Note #2: Time: 05:41 Progress Note Patient may have some sleep apnea as when she fell asleep her oxygen sats would dip down to 89-90%. (CHARLENE LIMON) Progress Note #1: Time: 06:02 Progress Note Care of this patient was assumed from Dr. Limon at shift change. CT read is pending. Progress Note #2: Time: 06:[address] reports reviewed. No cervical spine injury or intracranial injury. Patient is being discharged. (HERMES FORD MD) Diagnostic Imaging Diagonstic Imaging: CT (without IV contrast) Plain Films/CT/US/NM/MRI: c-spine, head Comments No calvarial fracture, midline shift, mass effect, intracranial hemorrhage or tumor. Left occiput soft tissue swelling/hematoma. C-spine without acute fracture or subluxation. [facility]ed: [facility] Reviewed by Me Diagonstic Imaging: Xray Plain Films/CT/US/NM/MRI: other (and left shoulder) Comments No acute osseous abnormality. Extensive osteoarthritis. Reviewed: Reviewed by Me (CHARLENE LIMON) Comments NAME: CLARISSA MILES [facility] REC#: [id number] PT STATUS: REG ER : 1932 PHYSICIAN: CHARLENE LIMON MD ADMIT DATE: 08/01/19/ER Draft Date of Exam:08/01/19 SHOULDER, LEFT, 3 VIEWS Left shoulder at 525 hours. INDICATION: Fell. 3 views are obtained. There are no prior studies available for comparison. FINDINGS: There is no fracture, dislocation or acute bony abnormality evident. However, there is severe degenerative disease of the glenohumeral joint. The joint space is narrowed and there is sclerosis of the opposing surfaces of the glenoid and the humeral head. There is also degenerative disease of the acromioclavicular joint. In addition, there are soft tissue calcifications interposed between the acromion and the humeral head. 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 IMPRESSION: 1. There is no evidence for an acute bony abnormality. 2. 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 Dictated on workstation # [id number] Dict: 08/01/19 0547 Trans: 08/01/19 0554 [id number] Interpreted by: JONY GONZALES MD (HERMES FORD MD) Departure Impression Primary Impression: Fall Qualified Codes: W19.XXXA - Unspecified fall, initial encounter Additional Impressions: Hematoma of occipital surface of head Qualified Codes: S00.83XA - Contusion of other part of head, initial encounter Laceration of occipital scalp Qualified Codes: S01.01XA - Laceration without foreign body of scalp, initial encounter Chronic left shoulder pain Disposition: 01 HOME, SELF-CARE Condition: Stable Departure-Patient Inst. Referrals: SANDRA MANLEY DO (PCP/Family) Primary Care Physician Patient Instructions: Laceration Repair With Glue (DC) Add. Discharge Instructions: Clean with regular soap and water. All discharge instructions reviewed with patient and/or family. Voiced understanding. CHARLENE LIMON Aug 01, 2019 05:04 HERMES FORD MD Aug 01, 2019 06:02
--- NOTE | 2019-08-01 05:55 | Diagnostic Imaging Report ---
Left shoulder at 525 hours. INDICATION: Fell. 3 views are obtained. There are no prior studies available for comparison. FINDINGS: There is no fracture, dislocation or acute bony abnormality evident. However, there is severe degenerative disease of the glenohumeral joint. The joint space is narrowed and there is sclerosis of the opposing surfaces of the glenoid and the humeral head. There is also degenerative disease of the acromioclavicular joint. In addition, there are soft tissue calcifications interposed between the acromion and the humeral head. 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 IMPRESSION: 1. There is no evidence for an acute bony abnormality. 2. 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 Dictated by: Dictated on workstation # [id number]
[2019-08-01] MEDS ORDERED: oxyCODONE/APAP 5/325MG (PERCOCET 5) TABLET PO ONE (06:45)
--- NOTE | 2019-08-01 06:52 | NUR ---
Report given to Torri Sorensen RN.
--- NOTE | 2019-08-01 07:05 | Diagnostic Imaging Report ---
PROCEDURE: CT head and CT cervical spine without contrast. TECHNIQUE: Multiple contiguous axial images were obtained through the brain and cervical spine without the use of intravenous contrast. Sagittal and coronal reformations through the cervical spine were then performed. Auto Exposure Controls were utilized during the CT exam to meet ALARA standards for radiation dose reduction. INDICATION: Fell head and neck pain CT head There is no mass, shift of midline or hemorrhage to suggest an acute intracranial abnormality. The ventricles are not abnormally dilated and stable in size when compared to the prior exam of 05/31/2019. The senescent changes seen on the previous study include cortical atrophy and periventricular encephalomalacia are again evident and no different. The bone windows show no sign of a fracture or of a destructive lesion. The orbits are symmetrical and within normal limits. The sinuses are generally clear. IMPRESSION: 1. There is no evidence for an acute intracranial abnormality. If clinical concern regarding an underlying abnormality persist, then MRI would recommend further study. CT cervical spine: The reconstructed parasagittal images show reversal of the normal lordosis of the cervical spine. This is similar to the prior exam of 05/31/2019. The degenerative change involving the cervical spine seen previously is again evident and no different. As noted on the prior exam there is bony overgrowth about the dens and this does result in narrowing of the spinal canal at the level of the foramen magnum. There is no fracture or acute bony abnormality evident. The lung apices are clear. There is no sign of retropharyngeal edema. The thyroid gland is prominent but similar in appearance to the prior study. IMPRESSION: 1. There is no acute bony abnormality. Dictated by: Dictated on workstation # [id number]
[2019-08-01 07:25] VITALS: BP 127/85
== END 2019-08-01 07:25 | disposition home or self-care (01) ==
LOC: EDUNIT# 04:52 → ER 04:54
DX: S01.01XA Laceration without foreign body of scalp, initial encounter (principal); M25.512 Pain in left shoulder; G89.29 Other chronic pain; E11.9 Type 2 diabetes mellitus without complications; G47.30 Sleep apnea, unspecified; I42.9 Cardiomyopathy, unspecified; I10 Essential (primary) hypertension; F03.90 Unspecified dementia, unspecified severity, without behavioral disturbance, psychotic disturbance, mood disturbance, and anxiety; E03.9 Hypothyroidism, unspecified; F41.9 Anxiety disorder, unspecified; Z86.73 Personal history of transient ischemic attack (TIA), and cerebral infarction without residual deficits; Z87.01 Personal history of pneumonia (recurrent); Z90.710 Acquired absence of both cervix and uterus; W01.198A Fall on same level from slipping, tripping and stumbling with subsequent striking against other object, initial encounter
CPT/HCPCS: 70450; 72125; 73030; 82962

== ENCOUNTER 2020-02-04 17:58 | Emergency (ER) | payer MEDICARE, OTHER ==
[~2020-02-04] VITALS: Ht 152 cm; Wt 75.0 kg
[~2020-02-04 17:58] MED LIST changes: +DIAZ5TAB49 PO; -GLIM2TAB PO; +GLIM2TAB4 PO; -TRAM50TA2 PO; +TRM50T PO
[2020-02-04] MEDS ORDERED: RT-ALBUTEROL/IPRATROPIUM 3 ML (DUONEB) VIAL INH ONE (18:15)
--- NOTE | 2020-02-04 18:22 | ED Chest Pain ---
General Chief Complaint: Chest Pain Stated Complaint: COUGH Nursing Triage Note: ARRIVED [facility]IA [facility] WITH COMPLAINTS OF CHEST PAIN STARTING TODAY THAT RADIATES INTO BACK. STATES SHE HAS HAD A PRODUCTIVE COUGH FOR WEEKS. Nursing Sepsis Screen: No Definite Risk Source: patient, EMS, retirement records Exam Limitations: no limitations History of Present Illness Date Seen by Provider: Feb 04, 2020 Time Seen by Provider: 17:59 Initial Comments This 89-year-old woman presents to the emergency room via EMS from the [facility] with complaints of chest pain intermittently throughout the day which she presumed to be "indigestion". She was hypoxic for EMS with an oxygen saturation of 88 percent on room air. She has had a cough for 2 weeks. In the exam room she has a cough productive of purulent sputum. She is diabetic with a fingerstick blood sugar of 199. She is afebrile but tachycardic. Rhythm on EKG is sinus tachycardia. She reports pain with inspiration earlier in the day. Review of her chart notes a history of aspiration pneumonia and sepsis. Her prescription filling record notes a Levaquin prescription filled in late December. Dr. Garcia as her primary care provider. She had a negative stress test in 2013. Patient had a similar presentation with chest pain in May when she had aspiration pneumonia. Allergies and Home Medications Allergies Coded Allergies: No Known Drug Allergies (Unverified , 07/23/12) Home Medications Acetaminophen 325 Mg Tablet, 650 MG PO Q6H PRN for FEVER, (Reported) USE FOR FEVER >99.5 Albuterol Sulfate 2.5 Mg/0.5 Ml Vial.neb, 2.5 MG INH Q6H PRN for SHORTNESS OF BREATH, (Reported) Atropine Sulfate 2 Ml Drops, 1-2 DROPS SL Q6H PRN for secretions Prescribed by: SHAHIDA DICKERSON on 06/28/19 1037 Cefdinir 300 Mg Capsule, 300 MG PO BID Prescribed by: HERMES NICOLE on 02/04/201 Diazepam 5 Mg Tablet, 5 MG PO DAILY PRN for ANXIETY, (Reported) Diltiazem HCl 180 Mg Capsule.er, 180 MG PO DAILY, (Reported) Furosemide 40 Mg Tablet, 40 MG PO DAILY, (Reported) Guaifenesin 100 Mg/5 Ml Liquid, 10 ML PO Q6H PRN for COUGH, (Reported) Guaifenesin 1,200 Mg Tab.er.12h, 1,200 MG PO BID, (Reported) Levothyroxine Sodium 50 Mcg Tablet, 50 MCG PO DAILY, (Reported) Oxycodone HCl 5 Mg Tablet, 5 MG PO Q6H PRN for PAIN-SEVERE, (Reported) Patient Home Medication List Home Medication List Reviewed: Yes Review of Systems Review of Systems Constitutional: no symptoms reported EENTM: No Symptoms Reported Respiratory: See HPI Cardiovascular: See HPI Gastrointestinal: No Symptoms Reported Genitourinary: No Symptoms Reported Musculoskeletal: no symptoms reported Skin: no symptoms reported Psychiatric/Neurological: No Symptoms Reported Endocrine: See HPI Hematologic/Lymphatic: No Symptoms Reported Past Vnpwzem-Wrvagc-Frubus Hx Patient Social History Alcohol Use: Denies Use Recreational Drug Use: No Smoking Status: Never a Smoker 2nd Hand Smoke Exposure: No Recent Foreign Travel: No Contact w/Someone Who Travel: No Recent Infectious Disease Expo: No Recent Hopitalizations: No Immunizations Up To Date Tetanus Booster (TDap): Unknown PED Vaccines UTD: Yes Date of Pneumonia Vaccine: Aug 28, 1999 Date of Influenza Vaccine: Aug 28, 2015 Seasonal Allergies Seasonal Allergies: No Past Medical History Surgeries: Yes Gallbladder, Hysterectomy, Joint Replacement, Oophorectomy, Orthopedic Respiratory: Yes Pneumonia, Sleep Apnea Cardiac: Yes (SINUS TACHYCARDIA; RBBB; SYNCOPAL EPISODE) Cardiomyopathy, Hypertension, Irregular Heartbeat, Syncope Neurological: Yes (ENCEPHALOPATHY) Dementia, Stroke [employer] PROF[employer] History: Menopausal Genitourinary: No Gastrointestinal: Yes Gall Bladder Disease Musculoskeletal: Yes Arthritis, Chronic Back Pain Endocrine: Yes (INSULIN + PILLS) Diabetes, Insulin dep, Hypothyroidsim HEENT: Yes Dysphagia Cancer: No Psychosocial: Yes Anxiety Integumentary: Yes (MRSA) Blood Disorders: No Family Medical History Patient reports no known family medical history. Physical Exam Vital Signs Vital Signs - First Documented 02/04/20 02/04/20 17:58 18:00 Temp 36.9 Pulse 110 Resp 20 B/P (MAP) 141/89 (106) Pulse Ox 88 O2 Delivery Room Air O2 Flow Rate 4.0 Capillary Refill : Less Than 3 Seconds Height, Weight, BMI Height: 5'5.00" Weight: 170lbs. 2.0oz. 77.179281ik; 32.00 BMI Method:Estimated General Appearance: WD/WN, Anxious, Mild Distress HEENT: PERRL/EOMI, Normal ENT Inspection Neck: Normal Inspection; No JVD Respiratory: No Accessory Muscle Use, No Respiratory Distress, Crackles (few scattered faint crackles), Decreased Breath Sounds Cardiovascular: No Edema, No Murmur, Tachycardia Gastrointestinal: Non Tender, Soft Extremity: Normal Inspection, No Pedal Edema Neurologic/Psychiatric: Alert, No Motor/Sensory Deficits, lifter/driver II-XII Norm as Tested, Other (dementia at baseline) Skin: Normal Color, Warm/Dry Focused Exam Lactate Level 02/04/20 18:33: Lactic Acid Level 2.40*H 02/04/20 20:45: Lactic Acid Level 2.45*H Lactic Acid Level Laboratory Tests Test 02/04/20 18:33 02/04/20 20:45 Lactic Acid Level 2.40 MMOL/L (0.50-2.00) *H 2.45 MMOL/L (0.50-2.00) *H Procedures/Interventions Date of ETT Placement: May 31, 2019 Time of ETT Placement: 1730 Progress/Results/Core Measures Results/Orders Lab Results Laboratory Tests Test 02/04/20 18:33 02/04/20 18:50 02/04/20 20:45 Range/Units White Blood Count 10.6 4.3-11.0 10^3/uL Red Blood Count 4.84 4.35-5.85 10^6/uL Hemoglobin 10.8 L 11.5-16.0 G/DL Hematocrit 36 35-52 % Mean Corpuscular Volume 74 L 80-99 FL Mean Corpuscular Hemoglobin 22 L 25-34 PG Mean Corpuscular Hemoglobin Concent 30 L 32-36 G/DL Red Cell Distribution Width 16.9 H 10.0-14.5 % Platelet Count 275 130-400 10^3/uL Mean Platelet Volume 9.1 7.4-10.4 FL Neutrophils (%) (Auto) 72 42-75 % Lymphocytes (%) (Auto) 15 12-44 % Monocytes (%) (Auto) 9 0-12 % Eosinophils (%) (Auto) 4 0-10 % Basophils (%) (Auto) 0 0-10 % Neutrophils # (Auto) 7.7 1.8-7.8 X 10^3 Lymphocytes # (Auto) 1.6 1.0-4.0 X 10^3 Monocytes # (Auto) 0.9 0.0-1.0 X 10^3 Eosinophils # (Auto) 0.4 H 0.0-0.3 10^3/uL Basophils # (Auto) 0.0 0.0-0.1 10^3/uL Prothrombin Time 13.7 12.2-14.7 SEC INR Comment 1.0 0.8-1.4 Activated Partial Thromboplast Time 28 24-35 SEC D-Dimer 1.38 H 0.00-0.49 UG/ML Sodium Level 138 135-145 MMOL/L Potassium Level 3.7 3.6-5.0 MMOL/L Chloride Level 101 98-107 MMOL/L Carbon Dioxide Level 23 21-32 MMOL/L Anion Gap 14 5-14 MMOL/L Blood Urea Nitrogen 12 7-18 MG/DL Creatinine 0.81 0.60-1.30 MG/DL Estimat Glomerular Filtration Rate > 60 BUN/Creatinine Ratio 15 Glucose Level 230 H 70-105 MG/DL Lactic Acid Level 2.40 *H 2.45 *H 0.50-2.00 MMOL/L Calcium Level 8.8 8.5-10.1 MG/DL Corrected Calcium 9.2 8.5-10.1 MG/DL Magnesium Level 1.5 L 1.6-2.4 MG/DL Total Bilirubin 0.2 0.1-1.0 MG/DL Aspartate Amino Transf (AST/SGOT) 14 5-34 U/L Alanine Aminotransferase (ALT/SGPT) 7 0-55 U/L Alkaline Phosphatase 122 40-136 U/L Myoglobin 27.3 10.0-92.0 NG/ML Troponin I < 0.028 <0.028 NG/ML C-Reactive Protein High Sensitivity 1.50 H 0.00-0.50 MG/DL B-Type Natriuretic Peptide 82.1 <100.0 PG/ML Total Protein 8.1 6.4-8.2 GM/DL Albumin 3.5 3.2-4.5 GM/DL Urine Color YELLOW Urine Clarity CLEAR Urine pH 7.5 5-9 Urine Specific [place] 1.020 1.016-1.022 Urine Protein 1+ H NEGATIVE Urine Glucose (UA) NEGATIVE NEGATIVE Urine Ketones NEGATIVE NEGATIVE Urine Nitrite NEGATIVE NEGATIVE Urine Bilirubin NEGATIVE NEGATIVE Urine Urobilinogen 0.2 < = 1.0 MG/DL Urine Leukocyte Esterase NEGATIVE NEGATIVE Urine RBC (Auto) NEGATIVE NEGATIVE Urine RBC NONE /HPF Urine WBC 0-2 /HPF Urine Crystals PRESENT H /LPF Urine Amorphous Sediment FEW OLAMIDE PHOSPHATE H /LPF Urine Bacteria TRACE /HPF Urine Casts NONE /LPF Urine Mucus NEGATIVE /LPF Urine Culture Indicated NO Micro Results Microbiology 02/04/20 Influenza Types A,B Antigen (OLIVIER) - Final, Complete My Orders Orders - HERMES FORD MD Cbc With Automated Diff (02/04/20 18:07) Magnesium (02/04/20 18:07) Chest 1 View, Ap/Pa Only (02/04/20 18:07) Ekg Tracing (02/04/20 18:07) Comprehensive Metabolic Panel (02/04/20 18:07) Myoglobin Serum (02/04/20 18:07) Protime With Inr (02/04/20 18:07) Partial Thromboplastin Time (02/04/20 18:07) O2 (02/04/20 18:07) Monitor-Rhythm Ecg Trace Only (02/04/20 18:07) Lipid Panel (02/05/20 06:00) Ed Iv/Invasive Line Start (02/04/20 18:07) BNP (02/04/20 18:07) Troponin I (02/04/20 18:07) Blood Culture (02/04/20 18:07) Sputum Culture (02/04/20 18:07) Urinalysis (02/04/20 18:07) Urine Culture (02/04/20 18:07) Vital Signs Adult Sepsis Patie Q15M (02/04/20 18:07) Remove Rings In Anticipation O (02/04/20 18:07) Lactic Acid Analyzer (02/04/20 18:07) Hs C Reactive Protein (02/04/20 18:07) Albuterol/Ipra Inhalation Soln (Duoneb I (02/04/20 18:15) Svn Small Volume Nebulizer (02/04/20 18:10) Influenza A And B Antigens (02/04/20 18:29) Fibrin Degradation Products (02/04/20 18:33) Ct Angio Chest W (02/04/20 20:03) Ceftriaxone For Iv Use (Rocephin For I (02/04/20 21:15) Troponin I (02/04/20 21:15) Medications Given in ED Current Medications Medications Dose Ordered Sig/Alexandra Route Start Time Stop Time Status Last Admin Dose Admin Albuterol/ Ipratropium 3 ml ONCE ONCE INH 02/04/20 18:15 02/04/20 18:16 DC 02/04/20 18:30 3 ML Ceftriaxone Sodium 1000 mg/ Sterile Water 10 ml @ 200 mls/hr ONCE ONCE IV 02/04/20 21:15 02/04/20 21:17 DC 02/04/20 21:25 200 MLS/HR Iohexol 100 ml ONCE ONCE IV 02/04/20 20:15 02/04/20 20:16 DC 02/04/20 20:41 95 ML Sodium Chloride 100 ml ONCE ONCE IV 02/04/20 20:15 02/04/20 20:16 DC 02/04/20 20:41 100 ML Vital Signs/I&O 02/04/20 02/04/20 17:58 18:00 Temp 36.9 Pulse 110 Resp 20 B/P (MAP) 141/89 (106) Pulse Ox 88 O2 Delivery Room Air Nasal Cannula O2 Flow Rate 4.0 Blood Pressure Mean: 106 Progress Progress Note #1: Time: 18:27 Progress Note Aspirin 324 mg was administered by EMS. Chest pain and septic workup are underway. There were no ischemic changes on the EKG. Patient is to receive a DuoNeb treatment. Progress Note #2: Time: 21:26 Progress Note No definitive source of infection was identified. Influenza screen was negative. Chest x-ray was also negative. D-dimer was elevated and CT angiogram was obtained. This showed no evidence of pulmonary emboli or other acute pathology. Patient's oxygen was removed and she was monitored. She maintained oxygen saturations ranging from 88-92 percent. Oxygen was reapplied at 2 L/m which brought her saturations back up to the 93-94 percent range. I discussed the case with Dr. Sommer who recommended starting Rocephin due to the purulent sputum. Since she is already receiving supportive care at the retirement and can receive oxygen supplementation there, he did not recommend admission. Rocephin is being administered. We will repeat a troponin for cardiac rule out before discharge. She is pain-free at this time. Initial ECG Impression Date: Feb 04, 2020 Initial ECG Impression Time: 18:07 Initial ECG Rate: 111 Initial ECG Rhythm: S.Tach Comment Sinus tachycardia with no ST elevation or depression. Right bundle branch block. No axis deviation. Diagnostic Imaging Diagonstic Imaging: Xray Plain Films/CT/US/NM/MRI: chest Comments Chest x-ray viewed by me and report reviewed. Compared with prior. See report below: NAME: CLARISSA MILES [facility] REC#: [id number] PT STATUS: REG ER : 1932 PHYSICIAN: HERMES FORD MD ADMIT DATE: 02/04/20/ER Signed Date of Exam:02/04/20 CHEST 1 VIEW, AP/PA ONLY INDICATION: Chest pain started today radiating to the back. Productive cough for weeks. COMPARISON STUDY: Chest from June 27. FINDINGS: Frontal and lateral views of the chest demonstrate stable mild interstitial lung disease. Heart size and vascularity are normal. Mild calcification seen in the aorta. Degenerative changes present in the shoulders. IMPRESSION: Stable chest with mild interstitial lung disease. Dictated by: Dictated on workstation # [id number] Dict: 02/04/201834 Trans: 02/04/20 [address] [facility] [id number] Interpreted by: DAVID LOVETT MD Electronically signed by: DAVID LOVETT MD 02/04/201838 Departure Impression Primary Impression: COPD exacerbation Additional Impressions: Atypical chest pain Hypoxia Productive cough Disposition: HOME, SELF-CARE Condition: Improved Departure-Patient Inst. Decision time for Depature: 21:29 Referrals: SANDRA GARCIA DO (PCP/Family) Primary Care Physician Patient Instructions: Chronic Obstructive Pulmonary Disease (COPD), Including Emphysema Add. Discharge Instructions: Contact Dr. Garcia's office tomorrow morning for follow-up instructions. Until seen by Dr. Garcia, provide oxygen supplementation via nasal cannula at 2 L/m. Titrated up to 4 L/m as needed to keep oxygen saturations greater than or equal to 92 percent. Also increase albuterol nebulized treatments to 4 times daily scheduled. Complete Omnicef as prescribed. Return to care if there are further problems or concerns. All discharge instructions reviewed with patient and/or family. Voiced unde rstanding. Scripts Cefdinir (Cefdinir) 300 Mg Capsule 300 MG PO BID, #14 CAP Prov: HERMES FORD MD 02/04/20 Copy Copies To 1: SANDRA GARCIA JOSHUA T MD Feb 04, 2020 18:22
--- NOTE | 2020-02-04 18:37 | Diagnostic Imaging Report ---
INDICATION: Chest pain started today radiating to the back. Productive cough for weeks. COMPARISON STUDY: Chest from June 27. FINDINGS: Frontal and lateral views of the chest demonstrate stable mild interstitial lung disease. Heart size and vascularity are normal. Mild calcification seen in the aorta. Degenerative changes present in the shoulders. IMPRESSION: Stable chest with mild interstitial lung disease. Dictated by: Dictated on workstation # [id number]
[2020-02-04 18:46] LABS: BASOPHILS % (AUTO) 0 % (0-10); EOSINOPHILS # (AUTO) 0.4 10^3/uL (0.0-0.3); EOSINOPHILS % (AUTO) 4 % (0-10); HEMATOCRIT 36 % (35-52); HEMOGLOBIN 10.8 G/DL (11.5-16.0); LYMPHOCYTES # (AUTO) 1.6 X 10^3 (1.0-4.0); LYMPHOCYTES % (AUTO) 15 % (12-44); MEAN CORPUSCULAR HEMOGLOBIN 22 PG (25-34); MEAN CORPUSCULAR HGB CONC 30 G/DL (32-36); MEAN CORPUSCULAR VOLUME 74 FL (80-99); MEAN PLATELET VOLUME 9.1 FL (7.4-10.4); MONOCYTES # (AUTO) 0.9 X 10^3 (0.0-1.0); MONOCYTES % (AUTO) 9 % (0-12); NEUTROPHILS # (AUTO) 7.7 X 10^3 (1.8-7.8); NEUTROPHILS % (AUTO) 72 % (42-75); PLATELET COUNT 275 10^3/uL (130-400); RED CELL DISTRIBUTION WIDTH 16.9 % (10.0-14.5); WHITE BLOOD COUNT 10.6 10^3/uL (4.3-11.0)
[2020-02-04 18:56] LABS: PROTHROMBIN TIME PATIENT 13.7 SEC (12.2-14.7)
[2020-02-04 18:59] LABS: BILIRUBIN,URINE NEGATIVE (NEGATIVE); CLARITY,URINE CLEAR; COLOR,URINE YELLOW; GLUCOSE, URINE (UA) NEGATIVE (NEGATIVE); KETONES,URINE NEGATIVE (NEGATIVE); LEUKOCYTE ESTERASE ,URINE NEGATIVE (NEGATIVE); NITRITE,URINE NEGATIVE (NEGATIVE); PH,URINE 7.5 (5-9); PROTEIN,URINE 1+ (NEGATIVE)
--- NOTE | 2020-02-04 19:02 | NUR ---
REPORT GIVEN TO LUDY VO
[2020-02-04 19:13] LABS: WBC,URINE 0-2 /HPF
[2020-02-04 19:14] LABS: AMORPHOUS SEDIMENT,UR FEW AMOR PHOSPHATE /LPF; BACTERIA,URINE TRACE /HPF
[2020-02-04 19:42] LABS: FIBRIN DEGRADATION PRODUCTS 1.38 UG/ML (0.00-0.49)
[2020-02-04 20:00] LABS: ALANINE AMINOTRANSFERASE 7 U/L (0-55); ALBUMIN 3.5 GM/DL (3.2-4.5); ALKALINE PHOSPHATASE 122 U/L (40-136); BILIRUBIN,TOTAL 0.2 MG/DL (0.1-1.0); BUN/CREATININE RATIO 15; CALCIUM 8.8 MG/DL (8.5-10.1); CARBON DIOXIDE 23 MMOL/L (21-32); CHLORIDE 101 MMOL/L (98-107); CREATININE SERUM 0.81 MG/DL (0.60-1.30); GFR ESTIMATED > 60; GLUCOSE 230 MG/DL (70-105); MAGNESIUM 1.5 MG/DL (1.6-2.4); POTASSIUM 3.7 MMOL/L (3.6-5.0); SODIUM 138 MMOL/L (135-145); TOTAL PROTEIN 8.1 GM/DL (6.4-8.2)
[2020-02-04] MEDS ORDERED: NS 100 ML (IVPB) BAG IV ONE (20:15)
[2020-02-04] MEDS ORDERED: IOHEXOL 350 MG/ML 100 ML (OMNIPAQUE 350) VIAL IV ONE (20:15)
[2020-02-04] MEDS ORDERED: HOLD METFORMIN - RECEIVED CONTRAST 20 ML VIAL IV SCH (20:15)
--- NOTE | 2020-02-04 20:55 | NUR ---
02 SATS 95-97% WITH O2 VIA NC. DR. FORD REMOVED O2 AT THIS TIME.
--- NOTE | 2020-02-04 20:56 | Diagnostic Imaging Report ---
PROCEDURE: CT angiography of the chest with contrast. TECHNIQUE: Multiple contiguous axial images were obtained through the chest after uneventful bolus administration of intravenous contrast. 3D reconstructed CTA MIP acquisitions were also performed. Auto Exposure Controls were utilized during the CT exam to meet ALARA standards for radiation dose reduction. INDICATION: Chest pain started today radiating to the back, productive cough for weeks. COMPARISON STUDY: Plain film of the chest from earlier today. Noncontrast CT of the chest from 05/31/2019. FINDINGS: Postcontrast CT scan of the chest with MIP reformats demonstrates no pulmonary emboli, aortic dissection or aneurysm. Arteriosclerosis is present with calcification of the aortic and mitral valves. Heart size is normal. No pleural or pericardial effusions are present. There is no abnormal adenopathy. Tiny hiatal hernia is present. No endobronchial lesions are identified. Mild interstitial lung disease seen in the bases. No bronchiectasis or masses are present. Visualized portions of the abdomen appear unremarkable. There is some narrowing of the right renal artery. IMPRESSION: 1. No pulmonary emboli, aortic dissection or aneurysm is present. 2. Arteriosclerosis present with calcification of the aortic valve and mitral valve. There is also narrowing of the right renal artery. 3. Mild interstitial disease present within the lung bases. Previous infiltrates have resolved. Dictated by: Dictated on workstation # [id number]
[2020-02-04] MEDS ORDERED: cefTRIAXone FOR IV USE 1,000 MG in WATER (STERILE) FOR INJECTION 10 ML IV ONE (21:15)
--- NOTE | 2020-02-04 21:23 | NUR ---
O2 SATS DECREASED TO 88% ON RA. DR. FORD RE-APPLIED O2 AT 2L VIA NC. SATS INCREASED TO 93-94%.
[2020-02-04] MEDS ORDERED: CEFD300C3 PO (21:31)
--- NOTE | 2020-02-04 21:59 | NUR ---
[facility] GIV[facility] REPORT AND NOTIFIED OF PT DISCHARGE. NX HOME STAFF TO COME GET PT.
[2020-02-04 22:10] VITALS: BP 114/66
--- OUTSIDE RECORDS SUMMARY | 2020-02-07 04:16 | XMS REPORT | Continuity of Care Document ---
Author Organization Unknown Address Unknown Phone Unavailable Allergies Active Description Code Type Severity Reaction Onset Reported/Identified Relationship to Patient Clinical Status Yes NO KNOWN DRUG ALLERGIES UNKNOWN UNKNOWN Yes No Known Drug Allergies [id number] Drug Allergy Unknown N/A 07/23/2012 Medications Medication Packaging Start Date St op Date Route Dosage Sig ACETAMINOPHEN ORAL TABLET 325mg(Tylenol) MG 12/20/2019 01/19/2020 PRN EVERY 6 Hour POLYETHYLENE GLYCOL POWDER U D PWD (MIRALAX 17GM UNIT DOSE PAKS) gm 12/20/2019 12/30/2019 PRN Q3H ACETAMINOPHEN ORAL TABLET 325mg(Tylenol) MG 12/20/2019 01/19/2020 PRN EVERY 6 Hour ALBUTEROL SVN CONCENTRATE SO L 2.5 MG (PROVENIL 2.5MG/0.5CC SVN SOLN) MG 12/20/2019 01/19/2020 PRN QID GABAPENTIN CAP 100 MG (NEURONTIN) MG 12/20/2019 12/20/2019 ONCE&1627 INSULIN ASPART PEN INJ 100 U NITS/CC (NOVOLOG FLEXPEN) 12/20/2019 12/20/2019 ONCE&1637 CALMOSEPTINE OINT TUBE (RISAMINE OINT) giovanny 12/20/2019 12/27/2019 PRN QID LOPERAMIDE CAP 2 MG (IMMODIUM) MG 12/20/2019 12/27/2019 PRN QID METHYLPHENIDATE TAB 5 MG (RITALIN) MG 12/20/2019 01/18/2020 QPM&1700 Ondansetron 4mg oral DissolveTab (Zofran) MG 12/20/2019 01/19/2020 PRN Q6H CALCIUM CARBONATE TAB 500 MG (TUMS) TAB 12/20/2019 01/19/2020 PRN Q6H ALUM/MAG/SIMETH 30CC LIQ (MYLANTA PLUS) cc 12/20/2019 12/30/2019 PRN Q4H GUAIFENESIN - DM LIQ (ROBITUSSIN DM) MLS 12/20/2019 12/27/2019 PRN Q6H GUAIFENESIN TAB 600 MG (MUCINEX) MG 12/20/2019 01/19/2020 BID&0800,2000 Docusate sodium 100mg oral capsule (COLACE ) MG 12/20/2019 01/19/2020 BID&0800,2000 OXYCODONE SUSTAINED RELEASE TAB 10 MG (OXYCONTIN) MG 12/20/2019 01/19/2020 TID&0800,1400,2000 TRAMADOL TAB 50 MG (ULTRAM) MG 12/20/2019 12/30/2019 PRN BID Nystatin top powder (Mycostatin) Dose(s) 12/20/2019 01/03/2020 BID&0800,2000 Naproxen sodium oral tablet 220mg (Aleve) MG 12/20/2019 12/30/2019 BID&0800,2000 OXYCODONE IR TAB 5 MG (OXY I R (IMMEDIATE RELEASE)) MG 12/20/2019 12/22/2019 TID&0800,1400,2000 LACTULOSE SYRUP LIQ 20 GM/30 CC (CHRONULAC SYRUP) GM 12/20/2019 01/19/2020 BID&0800,2000 MILK OF MAGNESIA LIQ ml 12/20/2019 01/19/2020 PRN BID HALOPERIDOL VIAL INJ 5 MG/CC (HALDOL 1CC V IAL) MG 12/20/2019 12/20/2019 PRN ONCE MIRTAZAPINE TAB 15 MG (REMERON) MG 12/20/2019 01/18/2020 QHS&2100 CITALOPRAM TAB 10 MG (CELEXA) MG 12/20/2019 01/18/2020 QHS&2100 LORAZEPAM TAB 1 MG (ATIVAN) MG 12/20/2019 01/18/2020 QHS&2100 ALBUTEROL SVN 2.5MG/3CC LIQ 2.5 MG (PROVENTIL JOSHUA 2.5MG/3CC) MG 12/20/2019 12/30/2019 PRN QID CLONAZEPAM TAB 0.5 MG (KLONOPIN) MG 12/20/2019 12/22/2019 QHS&2100 INSULIN DETEMIR PEN INJ 100 UNITS/CC (LEVEMIR FLEXPEN) UNITS 12/20/2019 01/18/2020 QHS&2100 INSULIN ASPART PEN INJ 100 U NITS/CC (NOVOLOG FLEXPEN) 12/20/2019 01/19/2020 ACHS&0630,1130,1630,2100 GABAPENTIN CAP 100 MG (NEURONTIN) MG 12/20/2019 01/19/2020 Q8H&0600,1400,2200 DIPHENHYDRAMINE VIAL INJ 50 MG/CC (BENADRYL VIAL) MG 12/20/2019 12/20/2019 PRN ONCE HALOPERIDOL VIAL INJ 5 MG/CC (HALDOL 1CC V IAL) MG 12/20/2019 12/27/2019 PRN Q6H LEVOTHYROXINE TAB 50 MCG (SYNTHROID) MCG 12/21/2019 01/19/2020 QAM&0800 RISPERIDONE TAB 0.5 MG (RISPERDAL) MG 12/21/2019 01/19/2020 TID&0800,1400,2000 FUROSEMIDE TAB 40 MG (LASIX) MG 12/21/2019 01/19/2020 QAM&0800 Diltiazem extended release 180mg cap (CARD IZEM) CAPSULE(S) 12/21/2019 01/19/2020 QAM&0800 POLYETHYLENE GLYCOL POWDER U D PWD (MIRALAX 17GM UNIT DOSE PAKS) gm 12/21/2019 01/19/2020 QAM&0800 METHYLPHENIDATE TAB 5 MG (RITALIN) MG 12/21/2019 01/19/2020 QAM&0800 VENLAFAXINE XR CAP 75 MG (EFFEXOR XR) MG 12/21/2019 01/19/2020 Daily&0900 BISACODYL SUPPOS 10 MG (DULCOLAX SUPPOS) MG 12/21/2019 12/27/2019 PRN Daily Clonazepam Oral Dissolve Tab 0.25mg (Klono pin) MG 12/21/2019 12/23/2019 BID&0800,2000 ALBUTEROL SVN 2.5MG/3CC LIQ 2.5 MG (PROVENTIL JOSHUA 2.5MG/3CC) MG 12/21/2019 12/28/2019 TID&0800,1400,2000 OXYCODONE IR TAB 5 MG (OXY I R (IMMEDIATE RELEASE)) MG 12/22/2019 12/23/2019 BID&0800,2000 GABAPENTIN CAP 300 MG (NEURONTIN) MG 12/22/2019 01/21/2020 Q8H&0600,1400,2200 Naproxen sodium oral tablet 220mg (Aleve) MG 12/22/2019 01/01/2020 BID&0630,1630 OXYCODONE IR TAB 5 MG (OXY I R (IMMEDIATE RELEASE)) MG 12/22/2019 12/22/2019 ONCE&2000 OXYCODONE IR TAB 5 MG (OXY I R (IMMEDIATE RELEASE)) MG 12/23/2019 12/26/2019 PRN Q12H TRAMADOL TAB 50 MG (ULTRAM) MG 12/23/2019 01/01/2020 BID&0800,2000 OXYCODONE 5MG/APAP 325MG TAB(PERCOCET-5) TAB 12/23/2019 12/25/2019 PRN Q12H OXYCODONE IR TAB 5 MG (OXY I R (IMMEDIATE RELEASE)) MG 12/23/2019 12/24/2019 BID&0800,2000 OXYCODONE IR TAB 5 MG (OXY I R (IMMEDIATE RELEASE)) MG 12/25/2019 12/26/2019 QAM&0800 VENLAFAXINE XR CAP 75 MG (EFFEXOR XR) MG 12/25/2019 01/23/2020 Daily&0900 MUPIROCIN OINT 2 % (BACTROBAN) giovanny 12/25/2019 01/01/2020 BID&0800,2000 PRAMIPEXOLE TAB 0.25 MG (MIRAPEX) MG 12/25/2019 01/23/2020 QHS&2100 GABAPENTIN CAP 300 MG (NEURONTIN) MG 12/27/2019 01/26/2020 Q6H&0600,1200,1800,2359 DICLOFENAC GEL GEL 1 % (VOLTAREN GEL) APPLICATION 12/27/2019 01/03/2020 BID&0800,2000 MIRTAZAPINE TAB 15 MG (REMERON) MG 12/30/2019 01/28/2020 QHS&2100 HALOPERIDOL VIAL INJ 5 MG/CC (HALDOL 1CC V IAL) MG 12/31/2019 12/31/2019 PRN ONCE GABAPENTIN CAP 100 MG (NEURONTIN) MG 12/31/2019 01/30/2020 Q6H&0600,1200,1800,2359 GABAPENTIN CAP 300 MG (NEURONTIN) MG 12/31/2019 01/30/2020 Q6H&0600,1200,1800,2359 TRAMADOL TAB 50 MG (ULTRAM) MG 12/31/2019 01/10/2020 BID&0800,2000 QUETIAPINE TAB 25 MG (SEROQUEL) MG 12/31/2019 01/29/2020 QHS&2100 QUETIAPINE TAB 25 MG (SEROQUEL) MG 01/01/2020 01/30/2020 Daily&0900 ALUM/MAG/SIMETH 30CC LIQ (MYLANTA PLUS) cc 01/01/2020 01/11/2020 PRN Q4H ALBUTEROL SVN 2.5MG/3CC LIQ 2.5 MG (PROVENTIL JOSHUA 2.5MG/3CC) MG 01/01/2020 01/11/2020 BID&0800,2000 Problems Date Dx Coded Attending Type Code Diagnosis Diagnosed By 07/23/2012 Ot 401.9 HYPE RTENSION NOS 07/23/2012 Ot 781.2 ABNO RMALITY OF GAIT 07/23/2012 Ot 784.0 HEAD ACHE 07/23/2012 Ot V58.69 OT MED,LT,CURRENT USE 04/11/2014 SANDRA MANLEY DO Ot [...] INFECTION NOS 08/06/2014 BRIJESH IRVIN Ot V58.69 [facility],,CURRENT USE 11/12/2015 Ot 733.90 11/12/2015 Ot 401.9 11/12/2015 Ot 780.79 11/12/2015 Ot V58.66 11/12/2015 Ot V58.69 11/12/2015 SCARLET FITZPATRICK DO Ot 729. 5 11/12/2015 MANLEYLEONARD HOLT SANDRA Yany Ot 715.96 11/12/2015 MANLEYLEONARD HOLT SANDRA Yany Ot 737.30 11/12/2015 MANLEY DO, SANDRA Yany Ot V43.64 11/12/2015 MANLEY DO, SANDRA Yany Ot V43.65 11/12/2015 MANLEYLEONARD HOLT SANDRA Yany Ot 729.5 11/12/2015 Ot 733.90 11/12/2015 Ot 401.9 11/12/2015 Ot 780.79 11/12/2015 Ot V58.66 11/12/2015 Ot V58.69 11/12/2015 SCARLET FITZPATRICK DO Ot 729. 5 11/12/2015 MANLEY DO, SANDRA Yany Ot 715.96 11/12/2015 MANLEY DO, SANDRA Yany Ot 737.30 11/12/2015 MANLEY DO, SANDRA Slade Ot V43.64 11/12/2015 MANLEY DO, SANDRA Yany Ot V43.65 11/12/2015 MANLEY DO, SANDRA Slade Ot 729.5 11/19/2015 Ot 401.9 11/19/2015 Ot 780.79 11/19/2015 Ot V58.66 11/19/2015 Ot V58.69 11/19/2015 SCARLET FITZPATRICK DO Ot 729. 5 11/19/2015 MANLEY DO, SANDRA Yany Ot 715.96 11/19/2015 MANLEY DO, SANDRA Yany Ot 737.30 11/19/2015 MANLEYLEONARD HOLT SANDRA Yany Ot V43.64 11/19/2015 MANLEY DO, SANDRA Yany Ot V43.65 11/19/2015 MANLEY DO, SANDRA Yany Ot 729.5 11/19/2015 LETICIA SIMMONS, JOANNA Gordon Ot G56.02 11/19/2015 LETICIA SIMMONS, JOANNA Gordon Ot Z01.818 11/19/2015 LETICIA SIMMONS, JOANNA Gordon Ot Z11.2 11/19/2015 JOANNA KELLY MD Ot E03.9 HYPOTHYROIDISM, UNSPECIFIED 11/19/2015 JOANNA KELLY MD Ot G56.02 CARPAL TUNNEL SYNDROME, LEFT UPPER LIMB 11/19/2015 JOANNA KELLY MD Ot I1 0 ESSENTIAL (PRIMARY) HYPERTENSION 11/19/2015 JOANNA KELLY MD Ot Z79.899 OTHER GROUP HOME (CURRENT) DRUG THERAPY 09/23/2016 Ot 401.9 HYPE RTENSION NOS 09/23/2016 Ot 780.79 OTH MALAISE FATIGUE 09/23/2016 Ot V58.66 DAYANARA G-TERM (CURRENT) USE OF ASPIRIN 09/23/2016 Ot V58.69 OTH MED,LT,CURRENT USE 09/23/2016 SCARLET FITZPATRICK DO Ot 729. 5 PAIN IN LIMB 09/23/2016 SANDRA MANLEY DO Ot 715.96 OSTEOARTHROS NOS-L/LEG 09/23/2016 SANDRA MANLEY DO Ot 737.30 IDIOPATHIC SCOLIOSIS 09/23/2016 SANDRA MANLEY DO Ot V43.64 HIP JOINT REPLACEMENT STATUS 09/23/2016 SANDRA MANLEY DO Ot V43.65 KNEE JOINT REPLACEMENT STATUS 09/23/2016 SANDRA MANLEY DO Ot 729.5 PAIN IN LIMB 09/23/2016 JOANNA KELLY MD Ot G56.02 CARPAL TUNNEL SYNDROME, LEFT UPPER LIMB 09/23/2016 JOANNA KELLY MD Ot Z01.818 ENCOUNTER FOR OTHER PREPROCEDURAL [...] F41.9 ANXIETY DISORDER, UNSPECIFIED 02/06/2019 SALOME JOSE MD Ot G47.30 SLEEP APNEA, UNSPECIFIED 02/06/2019 SALOME JOSE MD, Ot I10 ESSENTIAL (PRIMARY) HYPERTENSION 02/06/2019 SALOME JOSE MD, Ot M25.551 PAIN IN RIGHT HIP 02/06/2019 SALOME JOSE MD, Ot M25.552 PAIN IN LEFT HIP 02/06/2019 SALOME JOSE MD, Ot R40.2142 COMA SCALE, EYES OPEN, SPONTANEOUS, EMR 02/06/2019 SALOME JOSE MD Ot R40.2252 COMA SCALE, BEST VERBAL RESPONSE, ORIENT 02/06/2019 SALOME JOSE MD, Ot R40.2362 COMA SCALE, BEST MOTOR RESPONSE, OBEYS C 02/06/2019 SALOME JOSE MD, Ot R51 HEADACHE 02/06/2019 SALOME JOSE MD Ot W01.198A FALL SAME LEV FROM SLIP/TRIP W STRIKE AG 02/06/2019 SALOME JOSE MD Ot Z79.82 MERCHANDISE COORDINATOR (CURRENT) USE OF ASPIRIN 02/06/2019 SALOME JOSE MD Ot Z90.710 ACQUIRED ABSENCE OF BOTH CERVIX AND UTER 02/06/2019 SALOME JOSE MD Ot Z98.890 OTHER SPECIFIED POSTPROCEDURAL STATES 02/08/2019 SALOME JOSE MD, Ot E03.9 HYPOTHYROIDISM, UNSPECIFIED 02/08/2019 SALOME JOSE MD, Ot F41.9 ANXIETY DISORDER, UNSPECIFIED 02/08/2019 SALOME JOSE MD, Ot G47.30 SLEEP APNEA, UNSPECIFIED 02/08/2019 SALOME JOSE MD Ot I10 ESSENTIAL (PRIMARY) HYPERTENSION 02/08/2019 SALOME JOSE MD Ot M25.551 PAIN IN RIGHT HIP 02/08/2019 SALOME JOSE MD, Ot M25.552 PAIN IN LEFT HIP 02/08/2019 SALOME JOSE MD, Ot R40.2142 COMA SCALE, EYES OPEN, SPONTANEOUS, EMR 02/08/2019 SALOME JOSE MD, Ot R40.2252 COMA SCALE, BEST VERBAL RESPONSE, ORIENT 02/08/2019 SALOME JOSE MD, Ot R40.2362 COMA SCALE, BEST MOTOR RESPONSE, OBEYS C 02/08/2019 SALOME JOSE MD, Ot R51 HEADACHE 02/08/2019 SALOME JOSE MD, Ot W01.198A FALL SAME LEV FROM SLIP/TRIP W STRIKE AG 02/08/2019 SALOME JOSE MD, Ot Z79.82 MERCHANDISE COORDINATOR (CURRENT) USE OF ASPIRIN 02/08/2019 SALOME JOSE MD, Ot Z90.710 ACQUIRED ABSENCE OF BOTH CERVIX AND UTER 02/08/2019 SALOME JOSE MD, Ot Z98.890 OTHER SPECIFIED POSTPROCEDURAL STATES 05/31/2019 HERMES FORD MD, Ot E03.9 HYPOTHYROIDISM, UNSPECIFIED 05/31/2019 HERMES FORD MD Ot E11.9 TYPE 2 DIABETES MELLITUS WITHOUT COMPLIC 05/31/2019 HERMES FORD MD, Ot F41.9 ANXIETY DISORDER, UNSPECIFIED 05/31/2019 HERMES FORD MD, Ot G47.30 SLEEP APNEA, UNSPECIFIED 05/31/2019 HERMES FORD MD Ot I10 ESSENTIAL (PRIMARY) HYPERTENSION 05/31/2019 HERMES FORD MD Ot J69.0 PNEUMONITIS DUE TO INHALATION OF FOOD AN 05/31/2019 HERMES FORD MD, Ot J96.90 RESPIRATORY FAILURE, UNSP, UNSP W HYPOXI 05/31/2019 HERMES FORD MD, Ot R40.4 TRANSIENT ALTERATION OF AWARENESS 05/31/2019 HERMES FORD MD, Ot R53.1 WEAKNESS 05/31/2019 HERMES FORD MD, Ot Z79.82 GROUP HOME (CURRENT) USE OF ASPIRIN 05/31/2019 HERMES FORD MD, Ot Z90.710 ACQUIRED ABSENCE OF BOTH CERVIX AND UTER 06/05/2019 HERMES FORD MD, Ot E03.9 HYPOTHYROIDISM, [...] WEAKNESS 06/05/2019 HERMES FORD MD, Ot Z79.82 GROUP HOME (CURRENT) USE OF ASPIRIN 06/05/2019 HERMES FORD MD, Ot Z90.710 ACQUIRED ABSENCE OF BOTH CERVIX AND UTER 06/27/2019 SANDRA MANLEY DO Ot A41.9 SEPSIS, UNSPECIFIED ORGANISM 06/27/2019 SANDRA MANLEY DO Ot D64.9 ANEMIA, UNSPECIFIED 06/27/2019 SANDRA MANLEY DO Ot E03.9 HYPOTHYROIDISM, UNSPECIFIED 06/27/2019 SANDRA MANLEY DO Ot E11.9 TYPE 2 DIABETES MELLITUS WITHOUT COMPLIC 06/27/2019 SANDRA MANLEY DO Ot E87.2 ACIDOSIS 06/27/2019 SANDRA MANLEY DO Ot F03.90 UNSPECIFIED DEMENTIA WITHOUT BEHAVIORAL 06/27/2019 SANDRA MANLEY DO Ot F41.9 ANXIETY DISORDER, UNSPECIFIED 06/27/2019 SANDRA MANLEY DO Ot G47.30 SLEEP APNEA, UNSPECIFIED 06/27/2019 SANDRA MANLEY DO Ot G89.4 CHRONIC PAIN SYNDROME 06/27/2019 SANDRA MANLEY DO Ot I10 ESSENTIAL (PRIMARY) HYPERTENSION 06/27/2019 SANDRA MANLEY DO, Ot J69.0 PNEUMONITIS DUE TO INHALATION OF FOOD AN 06/27/2019 SANDRA MANLEY DO, Ot M19.91 PRIMARY OSTEOARTHRITIS, UNSPECIFIED SITE 06/27/2019 SANDRA MANLEY DO, Ot M54.9 DORSALGIA, UNSPECIFIED 06/27/2019 SANDRA MANLEY DO, Ot R07.9 CHEST PAIN, UNSPECIFIED 06/27/2019 SANDRA MANLEY DO, Ot R65.20 SEVERE SEPSIS WITHOUT SEPTIC SHOCK 06/27/2019 SANDRA MANLEY DO, Ot T17.928A FOOD IN RESP TRACT, PART UNSP CAUSING OT 06/27/2019 SANDRA MANLEY DO Ot Z66 DO NOT RESUSCITATE 06/27/2019 SANDRA MANLEY DO, Ot A41.9 SEPSIS, UNSPECIFIED ORGANISM 06/27/2019 SANDRA MANLEY DO, Ot D64.9 ANEMIA, UNSPECIFIED 06/27/2019 SANDRA MANLEY DO, Ot E03.9 HYPOTHYROIDISM, UNSPECIFIED 06/27/2019 SANDRA MANLEY DO, Ot E11.9 TYPE 2 DIABETES MELLITUS WITHOUT COMPLIC 06/27/2019 SANDRA MANLEY DO, Ot E87.2 ACIDOSIS 06/27/2019 SANDRA MANLEY DO, Ot F03.90 UNSPECIFIED DEMENTIA WITHOUT BEHAVIORAL 06/27/2019 SANDRA MANLEY DO, Ot F41.9 ANXIETY DISORDER, UNSPECIFIED 06/27/2019 SANDRA MANLEY DO, Ot G47.30 SLEEP APNEA, UNSPECIFIED 06/27/2019 SANDRA MANLEY DO Ot G89.4 CHRONIC PAIN SYNDROME 06/27/2019 SANDRA MANLEY DO, Ot I10 ESSENTIAL (PRIMARY) HYPERTENSION 06/27/2019 SANDRA MANLEY DO, Ot J69.0 PNEUMONITIS DUE TO INHALATION OF FOOD AN 06/27/2019 SANDRA MANLEY DO, Ot M19.91 PRIMARY OSTEOARTHRITIS, UNSPECIFIED SITE 06/27/2019 SANDRA MANLEY DO, Ot M54.9 DORSALGIA, UNSPECIFIED 06/27/2019 SANDRA MANLEY DO, Ot R07.9 CHEST PAIN, UNSPECIFIED 06/27/2019 SANDRA MANLEY DO, Ot R65.20 SEVERE SEPSIS WITHOUT SEPTIC SHOCK 06/27/2019 SANDRA MANLEY DO, Ot T17.928A FOOD IN RESP TRACT, PART UNSP CAUSING OT 06/27/2019 SANDRA MANLEY DO Ot Z66 DO NOT RESUSCITATE 06/27/2019 SANDRA MANLEY DO, Ot A41.9 SEPSIS, UNSPECIFIED ORGANISM 06/27/2019 SANDRA MANLEY DO, Ot D64.9 ANEMIA, UNSPECIFIED 06/27/2019 SANDRA MANLEY DO Ot E03.9 HYPOTHYROIDISM, UNSPECIFIED 06/27/2019 SANDRA MANLEY DO Ot E11.9 TYPE 2 DIABETES MELLITUS WITHOUT COMPLIC 06/27/2019 SANDRA MANLEY DO Ot E87.2 ACIDOSIS 06/27/2019 SANDRA MANLEY DO Ot F03.90 UNSPECIFIED DEMENTIA WITHOUT BEHAVIORAL 06/27/2019 SANDRA MANLEY DO, Ot F41.9 ANXIETY DISORDER, UNSPECIFIED 06/27/2019 SANDRA MANLEY DO, Ot G47.30 SLEEP APNEA, UNSPECIFIED 06/27/2019 SANDRA MANLEY DO Ot G89.4 CHRONIC PAIN SYNDROME 06/27/2019 SANDRA MANLEY DO, Ot I10 ESSENTIAL (PRIMARY) HYPERTENSION 06/27/2019 SANDRA MANLEY DO, Ot J69.0 PNEUMONITIS DUE TO INHALATION OF FOOD AN 06/27/2019 SANDRA MANLEY DO Ot M19.91 PRIMARY OSTEOARTHRITIS, UNSPECIFIED SITE 06/27/2019 SANDRA MANLEY DO, Ot M54.9 DORSALGIA, UNSPECIFIED 06/27/2019 SANDRA MANLEY DO, Ot R07.9 CHEST PAIN, UNSPECIFIED 06/27/2019 SANDRA MANLEY DO Ot R65.20 SEVERE SEPSIS WITHOUT SEPTIC SHOCK 06/27/2019 SANDRA MANLEY DO, Ot T17.928A FOOD IN RESP TRACT, PART UNSP CAUSING OT 06/27/2019 SANDRA MANLEY DO Ot Z66 DO NOT RESUSCITATE 06/28/2019 SANDRA MANLEY DO, Ot A41.9 SEPSIS, UNSPECIFIED ORGANISM 06/28/2019 SANDRA MANLEY DO, Ot D64.9 ANEMIA, UNSPECIFIED 06/28/2019 SANDRA MANLEY DO Ot E03.9 HYPOTHYROIDISM, UNSPECIFIED 06/28/2019 SANDRA MANLEY DO Ot E11.9 TYPE 2 DIABETES MELLITUS WITHOUT COMPLIC 06/28/2019 SANDRA MANLEY DO, Ot E87.2 ACIDOSIS 06/28/2019 SANDRA MANLEY DO, Ot F03.90 UNSPECIFIED DEMENTIA WITHOUT BEHAVIORAL 06/28/2019 SANDRA MANLEY DO, Ot F41.9 ANXIETY DISORDER, UNSPECIFIED 06/28/2019 SANDRA MANLEY DO, Ot G47.30 SLEEP APNEA, UNSPECIFIED 06/28/2019 SANDRA MANLEY DO, Ot G89.4 CHRONIC PAIN SYNDROME 06/28/2019 SANDRA MANLEY DO, Ot I10 ESSENTIAL (PRIMARY) HYPERTENSION 06/28/2019 SANDRA MANLEY DO, Ot J69.0 PNEUMONITIS DUE TO INHALATION OF FOOD AN 06/28/2019 SANDRA MANLEY DO, Ot M19.91 PRIMARY OSTEOARTHRITIS, UNSPECIFIED SITE 06/28/2019 SANDRA MANLEY DO, Ot M54.9 DORSALGIA, UNSPECIFIED 06/28/2019 SANDRA MANLEY DO, Ot R07.9 CHEST PAIN, UNSPECIFIED 06/28/2019 SANDRA MANLEY DO, Ot R65.20 SEVERE SEPSIS WITHOUT SEPTIC SHOCK 06/28/2019 SANDRA MANLEY DO, Ot T17.928A FOOD IN RESP TRACT, PART UNSP CAUSING OT 06/28/2019 SANDRA MANLEY DO, Ot Z66 DO NOT RESUSCITATE 06/28/2019 SANDRA MANLEY DO, Ot A41.9 SEPSIS, UNSPECIFIED ORGANISM 06/28/2019 SANDRA MANLEY DO, Ot D64.9 ANEMIA, UNSPECIFIED 06/28/2019 SANDRA MANLEY DO, Ot E03.9 HYPOTHYROIDISM, UNSPECIFIED 06/28/2019 SANDRA MANLEY DO, Ot E11.9 TYPE 2 DIABETES MELLITUS WITHOUT COMPLIC 06/28/2019 SANDRA MANLEY DO, Ot E87.2 ACIDOSIS 06/28/2019 SANDRA MANLEY DO, Ot F03.90 UNSPECIFIED DEMENTIA WITHOUT BEHAVIORAL 06/28/2019 SANDRA MANLEY DO, Ot F41.9 ANXIETY DISORDER, UNSPECIFIED 06/28/2019 SANDRA MANLEY DO, Ot G47.30 SLEEP APNEA, UNSPECIFIED 06/28/2019 SANDRA MANLEY DO, Ot G89.4 CHRONIC PAIN SYNDROME 06/28/2019 SANDRA MANLEY DO, Ot I10 ESSENTIAL (PRIMARY) HYPERTENSION 06/28/2019 MANLEY DO, SANDRA J Ot J69.0 PNEUMONITIS DUE TO INHALATION OF FOOD AN 06/28/2019 SANDRA MANLEY DO Ot M19.91 PRIMARY OSTEOARTHRITIS, UNSPECIFIED SITE 06/28/2019 SANDRA MANLEY DO, Ot M54.9 DORSALGIA, UNSPECIFIED 06/28/2019 SANDRA MANLEY DO, Ot R07.9 CHEST PAIN, UNSPECIFIED 06/28/2019 SANDRA MANLEY DO Ot R65.20 SEVERE SEPSIS WITHOUT SEPTIC SHOCK 06/28/2019 SANDRA MANLEY DO, Ot T17.928A FOOD IN RESP TRACT, PART UNSP CAUSING OT 06/28/2019 SANDRA MANLEY DO, Ot Z66 DO NOT RESUSCITATE 06/28/2019 SANDRA MANLEY DO, Ot Z79.4 MERCHANDISE COORDINATOR (CURRENT) USE OF INSULIN 06/28/2019 SANDRA MANLEY DO, Ot Z86.73 PRSNL HX OF TIA (TIA), AND CEREB INFRC W 08/01/2019 HERMES FORD MD Ot E03.9 HYPOTHYROIDISM, UNSPECIFIED 08/01/2019 HERMES FORD MD Ot E11.9 TYPE 2 DIABETES MELLITUS WITHOUT COMPLIC 08/01/2019 HERMES FORD MD Ot F03.90 UNSPECIFIED DEMENTIA WITHOUT BEHAVIORAL 08/01/2019 HERMES FORD MD, Ot F41.9 ANXIETY DISORDER, UNSPECIFIED 08/01/2019 HERMES FORD MD, Ot G47.30 SLEEP APNEA, UNSPECIFIED 08/01/2019 HERMES FORD MD Ot G89.29 OTHER CHRONIC PAIN 08/01/2019 HERMES FORD MD Ot I10 ESSENTIAL (PRIMARY) HYPERTENSION 08/01/2019 HERMES FORD MD Ot I42.9 CARDIOMYOPATHY, UNSPECIFIED 08/01/2019 HERMES FORD MD Ot M25.512 PAIN IN LEFT SHOULDER 08/01/2019 HERMES FORD MD Ot S01.01XA LACERATION WITHOUT FOREIGN BODY OF SCALP 08/01/2019 HERMES FORD MD Ot S09.90XA UNSPECIFIED INJURY OF HEAD, INITIAL ENCO 08/01/2019 HERMES FORD MD Ot W01.198A FALL SAME LEV FROM SLIP/TRIP W STRIKE AG 08/01/2019 HERMES FORD MD Ot Z86.73 PRSNL HX OF TIA (TIA), AND CEREB INFRC W 08/01/2019 HERMES FORD MD Ot Z87.01 PERSONAL HISTORY OF PNEUMONIA (RECURRENT 08/01/2019 HERMES FORD MD Ot Z90.710 ACQUIRED ABSENCE OF BOTH CERVIX AND UTER 08/03/2019 HERMES FORD MD Ot E03.9 HYPOTHYROIDISM, UNSPECIFIED 08/03/2019 HERMES FORD MD Ot E11.9 TYPE 2 DIABETES MELLITUS WITHOUT COMPLIC 08/03/2019 HERMES FORD MD Ot F03.90 UNSPECIFIED DEMENTIA WITHOUT BEHAVIORAL 08/03/2019 HERMES FORD MD Ot F41.9 ANXIETY DISORDER, UNSPECIFIED 08/03/2019 HERMES FORD MD Ot G47.30 SLEEP APNEA, UNSPECIFIED 08/03/2019 HERMES FORD MD Ot G89.29 OTHER CHRONIC PAIN 08/03/2019 HERMES FORD MD Ot I10 ESSENTIAL (PRIMARY) HYPERTENSION 08/03/2019 HERMES FORD MD Ot I42.9 CARDIOMYOPATHY, UNSPECIFIED 08/03/2019 HERMES FORD MD Ot M25.512 PAIN IN LEFT SHOULDER 08/03/2019 HERMES FORD MD Ot S01.01XA LACERATION WITHOUT FOREIGN BODY OF SCALP 08/03/2019 HERMES FORD MD Ot S09.90XA UNSPECIFIED INJURY OF HEAD, INITIAL ENCO 08/03/2019 HERMES FORD MD Ot W01.198A FALL SAME LEV FROM SLIP/TRIP W STRIKE AG 08/03/2019 HERMES FORD MD Ot Z86.73 PRSNL HX OF TIA (TIA), AND CEREB INFRC W 08/03/2019 HERMES FORD MD Ot Z87.01 PERSONAL HISTORY OF PNEUMONIA (RECURRENT 08/03/2019 HERMES FORD MD Ot Z90.710 ACQUIRED ABSENCE OF BOTH CERVIX AND UTER 02/04/2020 JOANNA KELLY MD, Ot G56.02 CARPAL TUNNEL SYNDROME, LEFT UPPER LIMB 02/04/2020 JOANNA KELLY MD, Ot Z01.818 ENCOUNTER FOR OTHER PREPROCEDURAL EXAMIN 02/04/2020 JOANNA KELLY MD, Ot Z11.2 ENCOUNTER FOR SCREENING FOR OTHER BACTER 02/04/2020 JOANNA DAVILA MD, Ot R13.14 DYSPHAGIA, PHARYNGOESOPHAGEAL PHASE 02/04/2020 JOANNA DAVILA MD, Ot R13.19 OTHER DYSPHAGIA Procedures There is no data. Results Test Result Range Complete blood count (CBC) with automate d white blood cell (WBC) differential - 02/06/19 07:55 Blood leukocytes automated count (number/volume) 9.6 10*3/uL 4.3-11.0 Blood erythrocytes automated count (number/volume) 4.88 10*6/uL 4.35-5.85 Venous blood hemoglobin measurement (mass/volume) 13.5 g/dL 11.5-16.0 Blood hematocrit (volume fraction) 42 % 35-52 Automated erythrocyte mean corpuscular volume 86 [ foz_us] 80-99 Automated erythrocyte mean corpuscular h emoglobin (mass per erythrocyte) 28 pg 25-34 Automated erythrocyte mean corpuscular h emoglobin concentration measurement (mass/volume) 32 g/dL 32-36 Automated erythrocyte distribution width ratio 14. 6 % 10.0- 14.5 Automated blood platelet count [...] 10*3 1.0-4.0 Blood monocytes automated count (number/volume) 1. 1 10*3 0.0-1.0 Automated eosinophil count 0.2 10*3/uL 0 .0-0.3 Automated blood basophil count (count/volume) 0.0 10*3/uL 0.0-0.1 PT panel in platelet poor plasma by coag ulation assay - 02/06/19 07:55 Prothrombin time (PT) in platelet poor plasma by coagu lation assay 14.3 s 12.2-14.7 INR in platelet poor plasma or blood by coagulation as say 1.1 0.8-1.4 Activated partial thromboplastin time (a PTT) in platelet poor plasma bycoagulation assay - 02/06/19 07:55 Activated partial thromboplastin time (a PTT) in platelet poor plasma bycoagulation assay 34 s 24-35 Comprehensive metabolic panel - 02/06/19 07:55 Serum or plasma sodium measurement (moles/volume) 140 mmol/L 135-145 Serum or plasma potassium measurement (moles/volume) 3.4 mmol/L 3.6-5.0 Serum or plasma chloride measurement (moles/volume) 98 mmol/L 98-107 Carbon dioxide 27 mmol/L 21-32 Serum or plasma anion gap determination (moles/volume) 15 mmol/L 5-14 Serum or plasma urea nitrogen measurement (mass/volume ) 10 mg/dL 7-18 Serum or plasma creatinine measurement (mass/volume) 0.64 mg/dL 0.60-1.30 Serum or plasma urea nitrogen/creatinine mass ratio 16 NRG Serum or plasma creatinine measurement w ith calculation of estimated glomerular filtration rate > NRG Serum or plasma glucose measurement (mass/volume) 124 mg/dL 70-105 Serum or plasma calcium measurement (mass/volume) 9.5 mg/dL 8.5-10.1 Serum or plasma total bilirubin measurement (mass/volu me) 0.6 mg/dL 0.1-1.0 Serum or plasma alkaline phosphatase raimundo surement (enzymatic activity/volume) 74 U/L 40-136 Serum or plasma aspartate aminotransfera se measurement (enzymatic activity/volume) 21 U/L 5-34 Serum or plasma alanine aminotransferase measurement (enzymatic activity/volume) 17 U/L 0-55 Serum or plasma protein measurement (mass/volume) 8.0 g/dL 6.4-8.2 Serum or plasma albumin measurement (mass/volume) 3.9 g/dL 3.2-4.5 CALCIUM CORRECTED 9.6 mg/dL 8.5-10.1 Serum or plasma creatine kinase measurem ent (enzymatic activity/volume) - 02/06/19 07:55 Serum or plasma creatine kinase measurem ent (enzymatic activity/volume) 78 U/L 29-168 Serum or plasma troponin i.cardiac measu rement (mass/volume) - 02/06/19 07:55 Serum or plasma troponin i.cardiac measurement (mass/v olume) < ng/mL <0.028 Serum or plasma C reactive protein measu rement (mass/volume) - 02/06/19 07:55 Serum or plasma C reactive protein measurement (mass/v olume) 10.23 mg/dL 0.00-0.50 Influenza virus A and B antigen detectio n - 02/06/19 08:06 FLU RESULT NEGATIVE FOR INFLUENZA A AND B ANTIGENS BY IA NRG Complete urinalysis with reflex to cultu re - 02/06/19 08:06 Urine color determination YELLOW NRG Urine clarity determination SLIGHTLY CLOUDY NRG Urine pH measurement by test strip 6 5-9 Specific gravity of urine by test strip 1.020 1.016-1.022 Urine protein assay by test strip, semi-quantitative 2+ NEGATIVE Urine glucose detection by automated test strip NE GATIVE NEGATIVE Erythrocytes detection in urine sediment by light micr oscopy 1+ NEGATIVE Urine ketones detection by automated test strip 3+ NEGATIVE Urine nitrite detection by test strip NEGATIVE NEGATIVE Urine total bilirubin detection by test strip NEGA TIVE NEGATIVE Urine urobilinogen measurement by automated test strip (mass/volume) NORMAL NORMAL Urine leukocyte esterase detection by dipstick 1+ NEGATIVE Automated urine sediment erythrocyte cou nt by microscopy (number/high power field) RARE NRG Automated urine sediment leukocyte count by microscopy (number/high power field) NONE NRG Bacteria detection in urine sediment by light microsco py NEGATIVE NRG Squamous epithelial cells detection in u rine sediment by light microscopy RARE NRG Crystals detection in urine sediment by light microsco py NONE NRG Casts detection in urine sediment by light microscopy NONE NRG Mucus detection in urine sediment by light microscopy NEGATIVE NRG Complete urinalysis with reflex to culture NO NRG Blood lactic acid measurement (moles/vol ume) - 02/06/19 08:13 Blood lactic acid measurement (moles/volume) 0.74 mmol/L 0.50-2.00 Bacterial blood culture - 02/06/19 08:13 Bacterial blood culture NG NRG Bacterial blood culture - 02/06/19 08:48 Bacterial blood culture [facility] [place] Complete blood count (CBC) with automate d white blood cell (WBC) differential - 05/31/19 17:12 Blood leukocytes automated count (number/volume) 12.9 10*3/uL 4.3-11.0 Blood erythrocytes automated count (number/volume) 4.82 10*6/uL 4.35-5.85 Venous blood hemoglobin measurement (mass/volume) 11.8 g/dL 11.5-16.0 Blood hematocrit (volume fraction) 39 % 35-52 Automated erythrocyte mean corpuscular volume 80 [ foz_us] 80-99 Automated erythrocyte mean corpuscular h emoglobin (mass per erythrocyte) 25 pg 25-34 Automated erythrocyte mean corpuscular h emoglobin concentration measurement (mass/volume) 31 g/dL 32-36 Automated erythrocyte distribution width ratio 14. 9 % 10.0- 14.5 Automated blood platelet count [...] 10*3 1.0-4.0 Blood monocytes automated count (number/volume) 1. 0 10*3 0.0-1.0 Automated eosinophil count 0.0 10*3/uL 0 .0-0.3 Automated blood basophil count (count/volume) 0.0 10*3/uL 0.0-0.1 Comprehensive metabolic panel - 05/31/19 17:12 Serum or plasma sodium measurement (moles/volume) 138 mmol/L 135-145 Serum or plasma potassium measurement (moles/volume) 4.4 mmol/L 3.6-5.0 Serum or plasma chloride measurement (moles/volume) 102 mmol/L 98-107 Carbon dioxide 23 mmol/L 21-32 Serum or plasma anion gap determination (moles/volume) 13 mmol/L 5-14 Serum or plasma urea nitrogen measurement (mass/volume ) 17 mg/dL 7-18 Serum or plasma creatinine measurement (mass/volume) 0.90 mg/dL 0.60-1.30 Serum or plasma urea nitrogen/creatinine mass ratio 19 NRG Serum or plasma creatinine measurement w ith calculation of estimated glomerular filtration rate 59 NRG Serum or plasma glucose measurement (mass/volume) 208 mg/dL 70-105 Serum or plasma calcium measurement (mass/volume) 8.6 mg/dL 8.5-10.1 Serum or plasma total bilirubin measurement (mass/volu me) 0.5 mg/dL 0.1-1.0 Serum or plasma alkaline phosphatase raimundo surement (enzymatic activity/volume) 74 U/L 40-136 Serum or plasma aspartate aminotransfera se measurement (enzymatic activity/volume) 40 U/L 5-34 Serum or plasma alanine aminotransferase measurement (enzymatic activity/volume) 8 U/L 0-55 Serum or plasma protein measurement (mass/volume) 7.2 g/dL 6.4-8.2 Serum or plasma albumin measurement (mass/volume) 3.2 g/dL 3.2-4.5 CALCIUM CORRECTED 9.2 mg/dL 8.5-10.1 PT panel in platelet poor plasma by coag ulation assay - 05/31/19 17:12 Prothrombin time (PT) in platelet poor plasma by coagu lation assay 16.0 s 12.2-14.7 INR in platelet poor plasma or blood by coagulation as say 1.2 0.8-1.4 Activated partial thromboplastin time (a PTT) in platelet poor plasma bycoagulation assay - 05/31/19 17:12 Activated partial thromboplastin time (a PTT) in platelet poor plasma bycoagulation assay 31 s 24-35 Fibrin D-dimer FEU measurement in platel et poor plasma (mass/volume) - 05/31/19 17:12 Fibrin D-dimer FEU measurement in platelet poor plasma (mass/volume) 9.12 ug/mL 0.00-0.49 Serum or plasma troponin i.cardiac measu rement (mass/volume) - 05/31/19 17:12 Serum or plasma troponin i.cardiac measurement (mass/v olume) 0.143 ng/mL <0.028 Manual absolute plasma cell count - 03/16 17:12 Blood monocytes/100 leukocytes 4 % NRG Manual blood segmented neutrophils/100 leukocytes 51 % NRG Blood band neutrophils/100 leukocytes 33 % NRG Manual blood lymphocytes/100 leukocytes 6 % NRG Manual eosinophils/100 leukocytes in nose 0 % NRG Manual blood basophils/100 leukocytes 0 % NRG Blood erythrocyte morphology finding identification NORMAL NRG Manual blood metamyelocytes/100 leukocytes 6 % NRG Complete urinalysis with reflex to cultu re - 05/31/19 17:16 Urine color determination YELLOW NRG Urine clarity determination VERY CLOUDY NRG Urine pH measurement by test strip 5 5-9 Specific gravity of urine by test strip 1.025 1.016-1.022 Urine protein assay by test strip, semi-quantitative 2+ NEGATIVE Urine glucose detection by automated test strip NE GATIVE NEGATIVE Erythrocytes detection in urine sediment by light micr oscopy 3+ NEGATIVE Urine ketones detection by automated test strip 1+ NEGATIVE Urine nitrite detection by test strip NEGATIVE NEGATIVE Urine total bilirubin detection by test strip 1+ NEGATIVE Urine urobilinogen measurement by automated test strip (mass/volume) NORMAL NORMAL Urine leukocyte esterase detection by dipstick 2+ NEGATIVE Automated urine sediment erythrocyte cou nt by microscopy (number/high power field) [HPF] NRG Automated urine sediment leukocyte count by microscopy (number/high power field) [HPF] NRG Bacteria detection in urine sediment by light microsco py NEGATIVE NRG Squamous epithelial cells detection in u rine sediment by light microscopy 5-10 NRG Crystals detection in urine sediment by light microsco py NONE NRG Casts detection in urine sediment by light microscopy NONE NRG Mucus detection in urine sediment by light microscopy NEGATIVE NRG Complete urinalysis with reflex to culture NO NRG Amorphous sediment detection in urine sediment by ligh t microscopy MOD OLAMIDE URATES NRG Bacterial blood culture - 05/31/19 17:22 Bacterial blood culture NG NRG Sputum Gram stain - 05/31/19 17:33 Sputum Gram stain Moderate Gram negative bacilli NRG Bacterial sputum culture - 05/31/19 17:3 3 FREE TEXT EXTERNAL SUSCEPTIBILITY REPORTED 06/03 11: 40 NRG QUANTITY OF GROWTH Moderate Growth NRG FREE TEXT ENTRY 2 ID REPORTED 06/01/19 17:05 NRG Bacterial sputum culture [id number] NRG Dirithromycin susceptibility test by dis k diffusion - 05/31/19 17:33 Gentamicin susceptibility test by minimum inhibitory c oncentration <= NRG Trimethoprim/sulfamethoxazole susceptibi lity test by minimum inhibitoryconcentration <= NRG Levofloxacin susceptibility test by minimum inhibitory concentration <= NRG Ampicillin susceptibility test by minimum inhibitory c oncentration <= NRG Cefazolin susceptibility test by minimum inhibitory co ncentration <= NRG Ceftriaxone susceptibility test by minimum inhibitory concentration <= NRG Piperacillin/tazobactam susceptibility t est by minimum inhibitory concentration <= NRG Ciprofloxacin susceptibility test by minimum inhibitor y concentration <= NRG Meropenem susceptibility test by minimum inhibitory co ncentration <= NRG Amoxicillin and clavulanate potassium susc OLIVIER <= NRG Imipenem susceptibility test by minimum inhibitory con centration <= NRG Dirithromycin susceptibility test by dis k diffusion - 05/31/19 17:33 Oxacillin susceptibility test by minimum inhibitory co ncentration 0.5 NRG Clindamycin susceptibility test by minimum inhibitory concentration <= NRG Erythromycin susceptibility test by minimum inhibitory concentration <= NRG Trimethoprim/sulfamethoxazole susceptibi lity test by minimum inhibitoryconcentration <= NRG Vancomycin susceptibility test by minimum inhibitory c oncentration 1 NRG Levofloxacin susceptibility test by minimum inhibitory concentration <= NRG Rifampin susceptibility test by minimum inhibitory con centration <= NRG Cefazolin susceptibility test by minimum inhibitory co ncentration <= NRG Linezolid susceptibility test by minimum inhibitory co ncentration 2 NRG Penicillin G susceptibility test by minimum inhibitory concentration > NRG Moxifloxacin susceptibility test by minimum inhibitory concentration <= NRG Minocycline susc OLIVIER <= NRG Bacterial blood culture - 05/31/19 17:36 FREE TEXT EXTERNAL SEE COMMENTS NR QUANTITY OF GROWTH Isolated [facility] [place] Bacterial blood culture [id number] [facility] [place] Blood lactic acid measurement (moles/vol ume) - 05/31/19 19:05 Blood lactic acid measurement (moles/volume) 5.04 mmol/L 0.50-2.00 Complete blood count (CBC) with automate d white blood cell (WBC) differential - 06/24/19 23:52 Blood leukocytes automated count (number/volume) 7.2 10*3/uL 4.3-11.0 Blood erythrocytes automated count (number/volume) 3.99 10*6/uL 4.35-5.85 Venous blood hemoglobin measurement (mass/volume) 9.7 g/dL 11.5-16.0 Blood hematocrit (volume fraction) 32 % 35-52 Automated erythrocyte mean corpuscular volume 80 [ foz_us] 80-99 Automated erythrocyte mean corpuscular h emoglobin (mass per erythrocyte) 24 pg 25-34 Automated erythrocyte mean corpuscular h emoglobin concentration measurement (mass/volume) 31 g/dL 32-36 Automated erythrocyte distribution width ratio 16. 7 % 10.0- 14.5 Automated blood platelet count [...] 10*3 1.0-4.0 Blood monocytes automated count (number/volume) 0. 7 10*3 0.0-1.0 Automated eosinophil count 0.5 10*3/uL 0 .0-0.3 Automated blood basophil count (count/volume) 0.0 10*3/uL 0.0-0.1 Comprehensive metabolic panel - 06/24/19 23:52 Serum or plasma sodium measurement (moles/volume) 137 mmol/L 135-145 Serum or plasma potassium measurement (moles/volume) 3.7 mmol/L 3.6-5.0 Serum or plasma chloride measurement (moles/volume) 97 mmol/L 98-107 Carbon dioxide 24 mmol/L 21-32 Serum or plasma anion gap determination (moles/volume) 16 mmol/L 5-14 Serum or plasma urea nitrogen measurement (mass/volume ) 12 mg/dL 7-18 Serum or plasma creatinine measurement (mass/volume) 0.80 mg/dL 0.60-1.30 Serum or plasma urea nitrogen/creatinine mass ratio 15 NRG Serum or plasma creatinine measurement w ith calculation of estimated glomerular filtration rate > NRG Serum or plasma glucose measurement (mass/volume) 200 mg/dL 70-105 Serum or plasma calcium measurement (mass/volume) 9.4 mg/dL 8.5-10.1 Serum or plasma total bilirubin measurement (mass/volu me) 0.2 mg/dL 0.1-1.0 Serum or plasma alkaline phosphatase raimundo surement (enzymatic activity/volume) 90 U/L 40-136 Serum or plasma aspartate aminotransfera se measurement (enzymatic activity/volume) 21 U/L 5-34 Serum or plasma alanine aminotransferase measurement (enzymatic activity/volume) 17 U/L 0-55 Serum or plasma protein measurement (mass/volume) 8.2 g/dL 6.4-8.2 Serum or plasma albumin measurement (mass/volume) 3.4 g/dL 3.2-4.5 CALCIUM CORRECTED 9.9 mg/dL 8.5-10.1 Magnesium - 06/24/19 23:52 Magnesium 1.5 mg/dL 1.8-2.4 Blood lactic acid measurement (moles/vol ume) - 06/24/19 23:52 Blood lactic acid measurement (moles/volume) 3.08 mmol/L 0.50-2.00 PT panel in platelet poor plasma by coag ulation assay - 06/24/19 23:52 Prothrombin time (PT) in platelet poor plasma by coagu lation assay 19.9 s 12.2-14.7 INR in platelet poor plasma or blood by coagulation as say 1.6 0.8-1.4 Activated partial thromboplastin time (a PTT) in platelet poor plasma bycoagulation assay - 06/24/19 23:52 Activated partial thromboplastin time (a PTT) in platelet poor plasma bycoagulation assay 37 s 24-35 Serum or plasma troponin i.cardiac measu rement (mass/volume) - 06/24/19 23:52 Serum or plasma troponin i.cardiac measurement (mass/v olume) < ng/mL <0.028 Serum or plasma lithium measurement (mol es/volume) - 06/24/19 23:52 BNP PT 112.9 pg/mL <100.0 Bacterial blood culture - 06/24/19 23:52 Bacterial blood culture NG NRG Sputum Gram stain - 06/24/19 23:52 Sputum Gram stain Mixed Bacterial Cuong NRG Bacterial sputum culture - 06/24/19 23:5 2 QUANTITY OF GROWTH . NRG Bacterial sputum culture USUAL RESP NRG Bacterial blood culture - 06/25/19 00:06 Bacterial blood culture NG NRG Complete urinalysis with reflex to cultu re - 06/25/19 01:10 Urine color determination YELLOW NRG Urine clarity determination CLEAR NR G Urine pH measurement by test strip 6 5-9 Specific gravity of urine by test strip 1.020 1.016-1.022 Urine protein assay by test strip, semi-quantitative NEGATIVE NEGATIVE Urine glucose detection by automated test strip NE GATIVE NEGATIVE Erythrocytes detection in urine sediment by light micr oscopy NEGATIVE NEGATIVE Urine ketones detection by automated test strip NE GATIVE NEGATIVE Urine nitrite detection by test strip NEGATIVE NEGATIVE Urine total bilirubin detection by test strip NEGA TIVE NEGATIVE Urine urobilinogen measurement by automated test strip (mass/volume) NORMAL NORMAL Urine leukocyte esterase detection by dipstick NEG ATIVE NEGATIVE Automated urine sediment erythrocyte cou nt by microscopy (number/high power field) NONE NRG Automated urine sediment leukocyte count by microscopy (number/high power field) NONE NRG Bacteria detection in urine sediment by light microsco py NEGATIVE NRG Squamous epithelial cells detection in u rine sediment by light microscopy 5-10 NRG Crystals detection in urine sediment by light microsco py NONE NRG Casts detection in urine sediment by light microscopy NONE NRG Mucus detection in urine sediment by light microscopy NEGATIVE NRG Complete urinalysis with reflex to culture CULTURE PENDING NRG Bacterial urine culture - 06/25/19 01:10 Bacterial urine culture NG NRG Serum or plasma lactate measurement (mol es/volume) - 06/25/19 01:40 Serum or plasma lactate measurement (moles/volume) 2.74 mmol/L 0.50-2.00 Capillary blood glucose measurement by g lucometer (mass/volume) - 06/25/19 02:51 Capillary blood glucose measurement by glucometer (mas s/volume) 203 mg/dL 70-110 Complete blood count (CBC) with automate d white blood cell (WBC) differential - 06/25/19 03:10 Blood leukocytes automated count (number/volume) 7.5 10*3/uL 4.3-11.0 Blood erythrocytes automated count (number/volume) 3.78 10*6/uL 4.35-5.85 Venous blood hemoglobin measurement (mass/volume) 9.3 g/dL 11.5-16.0 Blood hematocrit (volume fraction) 30 % 35-52 Automated erythrocyte mean corpuscular volume 80 [ foz_us] 80-99 Automated erythrocyte mean corpuscular h emoglobin (mass per erythrocyte) 25 pg 25-34 Automated erythrocyte mean corpuscular h emoglobin concentration measurement (mass/volume) 31 g/dL 32-36 Automated erythrocyte distribution width ratio 16. 7 % 10.0- 14.5 Automated blood platelet count (count/volume) 244 10*3/uL 130-400 Automated blood platelet mean volume measurement 9.8 [foz_us] 7.4-10.4 Automated blood neutrophils/100 leukocytes 88 % 42-75 Automated blood lymphocytes/100 leukocytes 7 % 12-44 Blood monocytes/100 leukocytes 3 % 0-12 Automated blood eosinophils/100 leukocytes 2 % 0-10 Automated blood basophils/100 leukocytes 0 % 0-10 Blood neutrophils automated count (number/volume) 6.6 10*3 1.8-7.8 Blood lymphocytes automated count (number/volume) 0.5 10*3 1.0-4.0 Blood monocytes automated count (number/volume) 0. 2 10*3 0.0-1.0 Automated eosinophil count 0.1 10*3/uL 0 .0-0.3 Automated blood basophil count (count/volume) 0.0 10*3/uL 0.0-0.1 Comprehensive metabolic panel - 06/25/19 03:10 Serum or plasma sodium measurement (moles/volume) 138 mmol/L 135-145 Serum or plasma potassium measurement (moles/volume) 3.7 mmol/L 3.6-5.0 Serum or plasma chloride measurement (moles/volume) 101 mmol/L 98-107 Carbon dioxide 23 mmol/L 21-32 Serum or plasma anion gap determination (moles/volume) 14 mmol/L 5-14 Serum or plasma urea nitrogen measurement (mass/volume ) 10 mg/dL 7-18 Serum or plasma creatinine measurement (mass/volume) 0.69 mg/dL 0.60-1.30 Serum or plasma urea nitrogen/creatinine mass ratio 14 NRG Serum or plasma creatinine measurement w ith calculation of estimated glomerular filtration rate > NRG Serum or plasma glucose measurement (mass/volume) 183 mg/dL 70-105 Serum or plasma calcium measurement (mass/volume) 8.7 mg/dL 8.5-10.1 Serum or plasma total bilirubin measurement (mass/volu me) 0.1 mg/dL 0.1-1.0 Serum or plasma alkaline phosphatase raimundo surement (enzymatic activity/volume) 83 U/L 40-136 Serum or plasma aspartate aminotransfera se measurement (enzymatic activity/volume) 22 U/L 5-34 Serum or plasma alanine aminotransferase measurement (enzymatic activity/volume) 16 U/L 0-55 Serum or plasma protein measurement (mass/volume) 7.5 g/dL 6.4-8.2 Serum or plasma albumin measurement (mass/volume) 3.1 g/dL 3.2-4.5 CALCIUM CORRECTED 9.4 mg/dL 8.5-10.1 PROCALCITONIN (PCT) - 06/25/19 03:10 PROCALCITONIN (PCT) 0.05 ng/mL <0.10 Serum or plasma troponin i.cardiac measu rement (mass/volume) - 06/25/19 12:25 Serum or plasma troponin i.cardiac measurement (mass/v olume) < ng/mL <0.028 Serum or plasma troponin i.cardiac measu rement (mass/volume) - 06/25/19 17:52 Serum or plasma troponin i.cardiac measurement (mass/v olume) < ng/mL <0.028 Complete blood count (CBC) with automate d white blood cell (WBC) differential - 06/26/19 03:30 Blood leukocytes automated count (number/volume) 9.7 10*3/uL 4.3-11.0 Blood erythrocytes automated count (number/volume) 3.76 10*6/uL 4.35-5.85 Venous blood hemoglobin measurement (mass/volume) 9.1 g/dL 11.5-16.0 Blood hematocrit (volume fraction) 30 % 35-52 Automated erythrocyte mean corpuscular volume 81 [ foz_us] 80-99 Automated erythrocyte mean corpuscular h emoglobin (mass per erythrocyte) 24 pg 25-34 Automated erythrocyte mean corpuscular h emoglobin concentration measurement (mass/volume) 30 g/dL 32-36 Automated erythrocyte distribution width ratio 17. 1 % 10.0- 14.5 Automated blood platelet count (count/volume) 257 10*3/uL 130-400 Automated blood platelet mean volume measurement 9.0 [foz_us] 7.4-10.4 Automated blood neutrophils/100 leukocytes 85 % 42-75 Automated blood lymphocytes/100 leukocytes 8 % 12-44 Blood monocytes/100 leukocytes 6 % 0-12 Automated blood eosinophils/100 leukocytes 0 % 0-10 Automated blood basophils/100 leukocytes 0 % 0-10 Blood neutrophils automated count (number/volume) 8.3 10*3 1.8-7.8 Blood lymphocytes automated count (number/volume) 0.8 10*3 1.0-4.0 Blood monocytes automated count (number/volume) 0. 6 10*3 0.0-1.0 Automated eosinophil count 0.0 10*3/uL 0 .0-0.3 Automated blood basophil count (count/volume) 0.0 10*3/uL 0.0-0.1 Whole blood basic metabolic panel - 05/30 03:30 Serum or plasma sodium measurement (moles/volume) 140 mmol/L 135-145 Serum or plasma potassium measurement (moles/volume) 4.1 mmol/L 3.6-5.0 Serum or plasma chloride measurement (moles/volume) 105 mmol/L 98-107 Carbon dioxide 23 mmol/L 21-32 Serum or plasma anion gap determination (moles/volume) 12 mmol/L 5-14 Serum or plasma urea nitrogen measurement (mass/volume ) 14 mg/dL 7-18 Serum or plasma creatinine measurement (mass/volume) 0.70 mg/dL 0.60-1.30 Serum or plasma urea nitrogen/creatinine mass ratio 20 NRG Serum or plasma creatinine measurement w ith calculation of estimated glomerular filtration rate > NRG Serum or plasma glucose measurement (mass/volume) 145 mg/dL 70-105 Serum or plasma calcium measurement (mass/volume) 9.1 mg/dL 8.5-10.1 Complete blood count (CBC) with automate d white blood cell (WBC) differential - 06/27/19 05:15 Blood leukocytes automated count (number/volume) 8.6 10*3/uL 4.3-11.0 Blood erythrocytes automated count (number/volume) 3.51 10*6/uL 4.35-5.85 Venous blood hemoglobin measurement (mass/volume) 8.4 g/dL 11.5-16.0 Blood hematocrit (volume fraction) 29 % 35-52 Automated erythrocyte mean corpuscular volume 82 [ foz_us] 80-99 Automated erythrocyte mean corpuscular h emoglobin (mass per erythrocyte) 24 pg 25-34 Automated erythrocyte mean corpuscular h emoglobin concentration measurement (mass/volume) 29 g/dL 32-36 Automated erythrocyte distribution width ratio 16. 8 % 10.0- 14.5 Automated blood platelet count (count/volume) 227 10*3/uL 130-400 Automated blood platelet mean volume measurement 9.0 [foz_us] 7.4-10.4 Automated blood neutrophils/100 leukocytes 92 % 42-75 Automated blood lymphocytes/100 leukocytes 5 % 12-44 Blood monocytes/100 leukocytes 2 % 0-12 Automated blood eosinophils/100 leukocytes 0 % 0-10 Automated blood basophils/100 leukocytes 0 % 0-10 Blood neutrophils automated count (number/volume) 7.9 10*3 1.8-7.8 Blood lymphocytes automated count (number/volume) 0.5 10*3 1.0-4.0 Blood monocytes automated count (number/volume) 0. 2 10*3 0.0-1.0 Automated eosinophil count 0.0 10*3/uL 0 .0-0.3 Automated blood basophil count (count/volume) 0.0 10*3/uL 0.0-0.1 Whole blood basic metabolic panel - 05/30 12/16 05:15 Serum or plasma sodium measurement (moles/volume) 144 mmol/L 135-145 Serum or plasma potassium measurement (moles/volume) 3.9 mmol/L 3.6-5.0 Serum or plasma chloride measurement (moles/volume) 107 mmol/L 98-107 Carbon dioxide 25 mmol/L 21-32 Serum or plasma anion gap determination (moles/volume) 12 mmol/L 5-14 Serum or plasma urea nitrogen measurement (mass/volume ) 13 mg/dL 7-18 Serum or plasma creatinine measurement (mass/volume) 0.59 mg/dL 0.60-1.30 Serum or plasma urea nitrogen/creatinine mass ratio 22 NRG Serum or plasma creatinine measurement w ith calculation of estimated glomerular filtration rate > NRG Serum or plasma glucose measurement (mass/volume) 188 mg/dL 70-105 Serum or plasma calcium measurement (mass/volume) 9.0 mg/dL 8.5-10.1 Manual absolute plasma cell count - 05/30 12/16 05:15 Blood monocytes/100 leukocytes 2 % NRG Manual blood segmented neutrophils/100 leukocytes 86 % NRG Blood band neutrophils/100 leukocytes 3 % NRG Manual blood lymphocytes/100 leukocytes 9 % NRG Blood hypochromia detection by light microscopy SL IGHT NRG Complete urinalysis with reflex to cultu re - 06/28/19 07:40 Urine color determination YELLOW NRG Urine clarity determination CLEAR NR G Urine pH measurement by test strip 5 5-9 Specific gravity of urine by test strip 1.020 1.016-1.022 Urine protein assay by test strip, semi-quantitative 3+ NEGATIVE Urine glucose detection by automated test strip NE GATIVE NEGATIVE Erythrocytes detection in urine sediment by light micr oscopy 5+ NEGATIVE Urine ketones detection by automated test strip 1+ NEGATIVE Urine nitrite detection by test strip NEGATIVE NEGATIVE Urine total bilirubin detection by test strip NEGA TIVE NEGATIVE Urine urobilinogen measurement by automated test strip (mass/volume) NORMAL NORMAL Urine leukocyte esterase detection by dipstick 2+ NEGATIVE Automated urine sediment erythrocyte cou nt by microscopy (number/high power field) TNTC NRG Automated urine sediment leukocyte count by microscopy (number/high power field) [HPF] NRG Bacteria detection in urine sediment by light microsco py NEGATIVE NRG Squamous epithelial cells detection in u rine sediment by light microscopy NONE NRG Crystals detection in urine sediment by light microsco py NONE NRG Casts detection in urine sediment by light microscopy NONE NRG Mucus detection in urine sediment by light microscopy NEGATIVE NRG Complete urinalysis with reflex to culture NO NRG Capillary blood glucose measurement by g lucometer (mass/volume) - 08/01/19 05:01 Capillary blood glucose measurement by glucometer (mas s/volume) 133 mg/dL 70-110 EKG - 12/20/19 14:47 EKG Complete Comprehensive Metabolic Panel - 12/20/19 14:47 Albumin 3.8 g/dL 3.6-5.1 ALP 115 U/L 35-130 ALT 11 U/L 6-45 Anion Gap 17 6-14 AST 16 U/L 2-40 BUN 14 mg/dL 5-25 Calcium 8.7 mg/dL 8.3-10.4 Chloride 98 mmol/L 95-114 CO2 28 mEq/L 22-33 Creat 0.78 mg/dL 0.50-1.50 eGFR 70 mL/min/1.73m2 >59 Globulin 4.3 g/dL 2.3-3.5 Glucose 251 mg/dL 70-110 Osmo 295 280-295 Potassium 3.9 mmol/L 3.5-5.3 Sodium 139 mmol/L 134-148 TBil 0.4 mg/dL 0.2-1.2 TP 8.1 g/dL 6.0-8.3 Rapid Drug Screen + ETOH,Medical - 12/20 14:47 Amphetamine NEGATIVE NEGATIVE Barbiturates NEGATIVE NEGATIVE Benzodiazepines POSITIVE NEGATIVE Cocaine NEGATIVE NEGATIVE Ethanol, Urine <10.00 mg/dL 20.00-80.00 Marijuana NEGATIVE NEGATIVE Methylenedioxymethamphetamine NEGATIVE NEGATIVE Opiates NEGATIVE NEGATIVE Oxycodone POSITIVE NEGATIVE Phencyclidine NEGATIVE NEGATIVE Propoxyphene NEGATIVE NEGATIVE Tricyclic Antidepressant NEGATIVE NEGAT CHANA MRSA Screen - 12/20/19 14:47 FINAL CULTURE RESULTS MRSA POSITIVE Nasal Culture MEDIA PLATED Setup at 16:30 on 12/20/2019 Urine Culture - 12/20/19 14:47 PRELIM CULTURE RESULTS No Growth 24 hours FINAL CULTURE RESULTS No Growth 48 hours CULTURE SOURCE Cath Lipid Panel - 12/21/19 05:10 C/HDL 3.7 3.7-6.7 Cholesterol 161 mg/dL 100-240 HDL 44 mg/dL 30-85 LDL-Calculated 96 mg/dL 0-100 Trig 104 mg/dL 35-160 VLDL 21 mg/dL 0-42 Arterial Blood Gas - 12/21/19 14:29 Base 6.00 mmol/L 1.80-4.20 HCO3 29 mmol/L 20-31 O2 Sat 94 RM AIR % 95-100 pCO2 36 mm/Hg 35-45 pH 7.51 7.35-7.45 PO2 65 mm/Hg 80-95 Comprehensive Metabolic Panel - 12/27/19 05:20 Albumin 3.3 g/dL 3.6-5.1 ALP 96 U/L 35-130 ALT 10 U/L 6-45 Anion Gap 18 6-14 AST 31 U/L 2-40 BUN 13 mg/dL 5-25 Calcium 8.7 mg/dL 8.3-10.4 Chloride 104 mmol/L 95-114 CO2 21 mEq/L 22-33 Creat 0.70 mg/dL 0.50-1.50 eGFR 79 mL/min/1.73m2 >59 Globulin 4.4 g/dL 2.3-3.5 Glucose 171 mg/dL 70-110 Osmo 287 280-295 Potassium 5.5 mmol/L 3.5-5.3 Sodium 137 mmol/L 134-148 TBil 0.3 mg/dL 0.2-1.2 TP 7.7 g/dL 6.0-8.3 Comprehensive Metabolic Panel - 12/28/19 05:25 Albumin 3.4 g/dL 3.6-5.1 ALP 90 U/L 35-130 ALT 10 U/L 6-45 Anion Gap 13 6-14 AST 11 U/L 2-40 BUN 15 mg/dL 5-25 Calcium 8.7 mg/dL 8.3-10.4 Chloride 103 mmol/L 95-114 CO2 27 mEq/L 22-33 Creat 0.67 mg/dL 0.50-1.50 eGFR 83 mL/min/1.73m2 >59 Globulin 3.7 g/dL 2.3-3.5 Glucose 166 mg/dL 70-110 Osmo 291 280-295 Potassium 4.3 mmol/L 3.5-5.3 Sodium 139 mmol/L 134-148 TBil 0.2 mg/dL 0.2-1.2 TP 7.1 g/dL 6.0-8.3 Influenza virus A and B antigen detectio n - 02/04/20 18:05 FLU RESULT NEGATIVE FOR INFLUENZA A AND B ANTIGENS BY IA NRG Bacterial blood culture - 02/04/20 18:27 Bacterial blood culture NG NRG Sputum Gram stain - 02/04/20 18:30 Sputum Gram stain Mixed Bacterial Cuong NRG Bacterial sputum culture - 02/04/20 18:3 0 QUANTITY OF GROWTH SMALL AMOUNT NRG Bacterial sputum culture USUAL RESP NRG Complete blood count (CBC) with automate d white blood cell (WBC) differential - 02/04/20 18:33 Blood leukocytes automated count (number/volume) 10.6 10*3/uL 4.3-11.0 Blood erythrocytes automated count (number/volume) 4.84 10*6/uL 4.35-5.85 Venous blood hemoglobin measurement (mass/volume) 10.8 g/dL 11.5-16.0 Blood hematocrit (volume fraction) 36 % 35-52 Automated erythrocyte mean corpuscular volume 74 [ foz_us] 80-99 Automated erythrocyte mean corpuscular h emoglobin (mass per erythrocyte) 22 pg 25-34 Automated erythrocyte mean corpuscular h emoglobin concentration measurement (mass/volume) 30 g/dL 32-36 Automated erythrocyte distribution width ratio 16. 9 % 10.0- 14.5 Automated blood platelet count (count/volume) 275 10*3/uL 130-400 Automated blood platelet mean volume measurement 9.1 [foz_us] 7.4-10.4 Automated blood neutrophils/100 leukocytes 72 % 42-75 Automated blood lymphocytes/100 leukocytes 15 % 12-44 Blood monocytes/100 leukocytes 9 % 0-12 Automated blood eosinophils/100 leukocytes 4 % 0-10 Automated blood basophils/100 leukocytes 0 % 0-10 Blood neutrophils automated count (number/volume) 7.7 10*3 1.8-7.8 Blood lymphocytes automated count (number/volume) 1.6 10*3 1.0-4.0 Blood monocytes automated count (number/volume) 0. 9 10*3 0.0-1.0 Automated eosinophil count 0.4 10*3/uL 0 .0-0.3 Automated blood basophil count (count/volume) 0.0 10*3/uL 0.0-0.1 Serum or plasma troponin i.cardiac measu rement (mass/volume) - 02/04/20 18:33 Serum or plasma troponin i.cardiac measurement (mass/v olume) < ng/mL <0.028 Blood lactic acid measurement (moles/vol ume) - 02/04/20 18:33 Blood lactic acid measurement (moles/volume) 2.40 mmol/L 0.50-2.00 Serum or plasma C reactive protein measu rement (mass/volume) - 02/04/20 18:33 Serum or plasma C reactive protein measurement (mass/v olume) 1.50 mg/dL 0.00-0.50 PT panel in platelet poor plasma by coag ulation assay - 02/04/20 18:33 Prothrombin time (PT) in platelet poor plasma by coagu lation assay 13.7 s 12.2-14.7 INR in platelet poor plasma or blood by coagulation as say 1.0 0.8-1.4 Activated partial thromboplastin time (a PTT) in platelet poor plasma bycoagulation assay - 02/04/20 18:33 Activated partial thromboplastin time (a PTT) in platelet poor plasma bycoagulation assay 28 s 24-35 Serum or plasma lithium measurement (mol es/volume) - 02/04/20 18:33 BNP PT 82.1 pg/mL <100.0 Fibrin D-dimer FEU measurement in platel et poor plasma (mass/volume) - 02/04/20 18:33 Fibrin D-dimer FEU measurement in platelet poor plasma (mass/volume) 1.38 ug/mL 0.00-0.49 Comprehensive metabolic panel - 02/04/20 18:33 Serum or plasma sodium measurement (moles/volume) 138 mmol/L 135-145 Serum or plasma potassium measurement (moles/volume) 3.7 mmol/L 3.6-5.0 Serum or plasma chloride measurement (moles/volume) 101 mmol/L 98-107 Carbon dioxide 23 mmol/L 21-32 Serum or plasma anion gap determination (moles/volume) 14 mmol/L 5-14 Serum or plasma urea nitrogen measurement (mass/volume ) 12 mg/dL 7-18 Serum or plasma creatinine measurement (mass/volume) 0.81 mg/dL 0.60-1.30 Serum or plasma urea nitrogen/creatinine mass ratio 15 NRG Serum or plasma creatinine measurement w ith calculation of estimated glomerular filtration rate > NRG Serum or plasma glucose measurement (mass/volume) 230 mg/dL 70-105 Serum or plasma calcium measurement (mass/volume) 8.8 mg/dL 8.5-10.1 Serum or plasma total bilirubin measurement (mass/volu me) 0.2 mg/dL 0.1-1.0 Serum or plasma alkaline phosphatase raimundo surement (enzymatic activity/volume) 122 U/L 40-136 Serum or plasma aspartate aminotransfera se measurement (enzymatic activity/volume) 14 U/L 5-34 Serum or plasma alanine aminotransferase measurement (enzymatic activity/volume) 7 U/L 0-55 Serum or plasma protein measurement (mass/volume) 8.1 g/dL 6.4-8.2 Serum or plasma albumin measurement (mass/volume) 3.5 g/dL 3.2-4.5 CALCIUM CORRECTED 9.2 mg/dL 8.5-10.1 Magnesium - 02/04/20 18:33 Magnesium 1.5 mg/dL 1.6-2.4 Myoglobin, serum - 02/04/20 18:33 Myoglobin, serum 27.3 ng/mL 10.0-92.0 Bacterial blood culture - 02/04/20 18:33 Bacterial blood culture NG NRG Complete urinalysis with reflex to cultu re - 02/04/20 18:50 Urine color determination YELLOW NRG Urine clarity determination CLEAR NR G Urine pH measurement by test strip 7.5 5-9 Specific gravity of urine by test strip 1.020 1.016-1.022 Urine protein assay by test strip, semi-quantitative 1+ NEGATIVE Urine glucose detection by automated test strip NE GATIVE NEGATIVE Erythrocytes detection in urine sediment by light micr oscopy NEGATIVE NEGATIVE Urine ketones detection by automated test strip NE GATIVE NEGATIVE Urine nitrite detection by test strip NEGATIVE NEGATIVE Urine total bilirubin detection by test strip NEGA TIVE NEGATIVE Urine urobilinogen measurement by automated test strip (mass/volume) 0.2 mg/dL < = 1.0 Urine leukocyte esterase detection by dipstick NEG ATIVE NEGATIVE Automated urine sediment erythrocyte cou nt by microscopy (number/high power field) NONE NRG Automated urine sediment leukocyte count by microscopy (number/high power field) [HPF] NRG Bacteria detection in urine sediment by light microsco py TRACE NRG Crystals detection in urine sediment by light microsco py PRESENT NRG Casts detection in urine sediment by light microscopy NONE NRG Mucus detection in urine sediment by light microscopy NEGATIVE NRG Complete urinalysis with reflex to culture NO NRG Amorphous sediment detection in urine sediment by ligh t microscopy FEW OLAMIDE PHOSPHATE NRG Bacterial urine culture - 02/04/20 18:50 Bacterial urine culture 3 OR MORE NRG COLONY COUNT <10,000 NRG FTX;REPORTABLE GRAM POSITIVES, SUGGESTING PROBABLE NRG FREE TEXT ENTRY 2 COLLECTION CONTAMINATION WITH SK IN CUONG NRG FREE TEXT ENTRY 3 NO SUSCEPTIBILITY PERFORMED NRG Serum or plasma lactate measurement (mol es/volume) - 02/04/20 20:45 Serum or plasma lactate measurement (moles/volume) 2.45 mmol/L 0.50-2.00 Serum or plasma troponin i.cardiac measu rement (mass/volume) - 02/04/20 21:30 Serum or plasma troponin i.cardiac measurement (mass/v olume) < ng/mL <0.028 Encounters ACCT No. Visit Date/Time Discharge Status Pt. Type Provider Facility Loc./Unit Complaint [id number] 12/20/2019 15:01:00 01/03/2020 08:18 :00 DIS Inpatient HERMES MENDOZA [facility] [id number] 12/20/2019 14:54:51 Document Registration [id number] 02/04/2020 17:59:00 22:50:00 DIS Emergency HERMES FORD MD Via [facility] ER COUGH [id number] 08/01/2019 04:54:00 07:25:00 DIS Emergency HERMES FORD MD Via [facility] ER FALL [id number] 06/25/2019 00:45:00 13:25:00 DIS Inpatient SANDRA MANLEY DO Via [facility] 4TH ASPIRATION PNEUMONIA;SEPSIS;HYPOXIA RECENT CVA [id number] 05/31/2019 17:10:00 20:47:00 DIS Emergency HERMES FORD MD Via [facility] ER UNRESPONSIVE [id number] 02/06/2019 07:54:00 12:58:00 DIS Emergency SALOME JOSE MD Via [facility] ER FALL [id number] 01/24/2019 15:53:00 23:59:59 CLS Preadmit SANDRA MANLEY DO Via [facility] RAD MAJOR DEPRESSIVE DISOR RAD [id number] 09/23/2016 11:29:00 23:59:59 CLS Outpatient JOANNA DAVILA MD Via [facility] RAD CHRONIC DYSPHAGIA, R13. 14, R13.19 [id number] 11/19/2015 07:11:00 11:05:00 DIS Outpatient JOANNA KELLY MD Via [facility] SDC LT.CARPEL TUNNEL SYNDR OME [id number] 11/12/2015 10:41:00 23:59:59 CLS Outpatient JOANNA KELLY MD Via [facility] PREOP LEFT CARPEL TUNNEL [id number] 08/06/2014 12:10:00 014 14:33:00 DIS Emergency BRIJESH IRVIN Via [facility] ER HIGH BP [id number] 04/22/2014 15:13:00 014 17:13:00 DIS Emergency ASHWINI BENITEZ DO a [facility] ER ELEVATED BLOOD PRESSURE [id number] 04/10/2014 11:50:00 15:15:00 DIS Inpatient SANDRA MANLEY DO Via [facility] CSD CP,HTN [id number] 03/18/2014 16:37:00 23:59:59 CLS Outpatient SANDRA MANLEY DO Via [facility] RAD PAIN IN DORSOL FOOT [id number] 04/19/2013 12:07:00 23:59:59 CLS Outpatient SANDRA MANLEY DO Via [facility] RAD OA [id number] 04/12/2013 13:54:00 23:59:59 CLS Outpatient SCARLET FITZPATRICK DO Via [facility] RAD LEG PAIN, CANT BEND LEG [id number] 11/12/2015 10:39:00 Document Registration [id number] 07/23/2012 15:58:00 Document Registration [id number] 05/06/2011 06:15:00 Document Registration [id number] 05/28/2010 10:27:00 Document Registration
== END 2020-02-04 22:50 | disposition home or self-care (01) ==
LOC: EDUNIT# 17:58 → ER 17:59
DX: J44.1 Chronic obstructive pulmonary disease with (acute) exacerbation (principal); R09.02 Hypoxemia; E11.9 Type 2 diabetes mellitus without complications; I11.9 Hypertensive heart disease without heart failure; I51.7 Cardiomegaly; F03.90 Unspecified dementia, unspecified severity, without behavioral disturbance, psychotic disturbance, mood disturbance, and anxiety; E03.9 Hypothyroidism, unspecified; F41.9 Anxiety disorder, unspecified; Z87.01 Personal history of pneumonia (recurrent); Z86.73 Personal history of transient ischemic attack (TIA), and cerebral infarction without residual deficits
CPT/HCPCS: 36415; 71045; 71275; 80053; 81000; 83605; 83735; 83874; 83880; 84484; 85025; 85379; 85610; 85730; 86141; 87040; 87070; 87088; 87205; 87804; 93005; 93041

== ENCOUNTER 2020-03-28 05:24 | Emergency (ER) | payer MEDICARE, OTHER ==
[~2020-03-28] VITALS: Ht 152 cm; Wt 75.0 kg
[~2020-03-28 05:24] MED LIST changes: +CEFD300C3 PO; -OXYC-529 PO; +OXYC5TAB96 PO
--- NOTE | 2020-03-28 05:30 | NUR ---
pt declined blood draw, states " i just want an x-ray and to go home." erp notified.
--- OUTSIDE RECORDS SUMMARY | 2020-03-28 05:30 | XMS REPORT | Clinical Summary ---
Author Author [facility] Organization [facility] Address Unknown Phone Unavailable Care Team Providers Care Abrasive Mixer Name Role Phone PCP Unavailable Source Comments Some departments are not documenting in the electronic medical record. If you d o not see the information that you expected, contact Release of Information in [facility] [employer] Information Management department at [phone] for further assistan ce in locating additional records.[facility] Allergies Not on File Medications Not on file Active Problems Not on file Social History Date Tobacco Use Types Packs/Day Years Used Never Assessed Sex Assigned at Date Recorded Not on file Industry Job Start Date Occupation Not on file Not on file Not on file Travel End Travel History Travel Start No recent travel history available. Last Filed Vital Signs Not on file Plan of Treatment Health Maintenance Due Date Last Done Comments DTAP/TDAP VACCINES (1 - 1950 Tdap) PHYSICAL (COMPREHENSIVE) 1948 EXAM SHINGLES RECOMBINANT 1982 VACCINE (1 of 2) OSTEOPOROSIS 1997 SCREENING/MONITORING PNEUMONIA (PPSV23) 1997 VACCINE (1 of 1 - PPSV23) INFLUENZA VACCINE 08/28/2020 Results Not on filefrom Last 3 Months Advance Directives Patient Tank Pumper Panelboard Explanation Type Date Recorded Advance Directive/DPOA
--- OUTSIDE RECORDS SUMMARY | 2020-03-28 05:32 | XMS REPORT | Continuity of Care Document ---
Author Organization Unknown Address Unknown Phone Unavailable Allergies Active Description Code Type Severity Reaction Onset Reported/Identified Relationship to Patient Clinical Status Yes NO KNOWN DRUG ALLERGIES UNKNOWN UNKNOWN Yes No Known Drug Allergies [id number] Drug Allergy Unknown N/A 07/23/2012 Medications Medication [...] INFECTION NOS 08/06/2014 BRIJESH IRVIN Ot V58.69 [facility],,CURRENT USE 11/12/2015 Ot 733.90 11/12/2015 Ot 401.9 [...] 11/19/2015 JOANNA KELLY MD Ot Z79.899 OTHER DETENTION (CURRENT) DRUG THERAPY 09/23/2016 Ot 401.9 HYPE [...] AG 02/06/2019 SALOME JOSE MD Ot Z79.82 OPTICAL GLASS ETCHER (CURRENT) USE OF ASPIRIN 02/06/2019 SALOME JOSE [...] AG 02/08/2019 SALOME JOSE MD, Ot Z79.82 OPTICAL GLASS ETCHER (CURRENT) USE OF ASPIRIN 02/08/2019 SALOME JOSE [...] WEAKNESS 05/31/2019 HERMES FORD MD, Ot Z79.82 DETENTION (CURRENT) USE OF ASPIRIN 05/31/2019 HERMES FORD [...] WEAKNESS 06/05/2019 HERMES FORD MD, Ot Z79.82 DETENTION (CURRENT) USE OF ASPIRIN 06/05/2019 HERMES FORD [...] DO, Ot F41.9 ANXIETY DISORDER, UNSPECIFIED 06/27/2019 ASNDRA MANLEY DO, Ot G47.30 SLEEP APNEA, UNSPECIFIED [...] F03.90 UNSPECIFIED DEMENTIA WITHOUT BEHAVIORAL 06/27/2019 SANDRA MALNEY DO, Ot F41.9 ANXIETY DISORDER, UNSPECIFIED 06/27/2019 [...] RESUSCITATE 06/28/2019 SANDRA MANLEY DO, Ot Z79.4 OPTICAL GLASS ETCHER (CURRENT) USE OF INSULIN 06/28/2019 SANDRA MANLEY [...] ACQUIRED ABSENCE OF BOTH CERVIX AND UTER 01/03/2020 IRVIN MENDOZAUA W 244 .9 UNSPECIFIED HYPOTHYROIDISM 01/03/2020 TARTAGLIONE, HERMES W 250 .00 DIABETES MELLITUS WITHOUT MENTION OF COMPLICATION, TYPE II OR UNSPECIFIED TYPE, NOT STATED UNCONTROLLED 01/03/2020 TARTAGLIONE, HERMES W 276 .8 HYPOPOTASSEMIA 01/03/2020 TARTAGLIONE, HERMES W 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, UNCOMPLICATED 01/03/2020 TARTAGLIONE, HERMES W 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 01/03/2020 TARTAGLIONE, HERMES W 300 .02 GENERALIZED ANXIETY DISORDER 01/03/2020 TARTAGLIONE, HERMES W 401 .0 MALIGNANT ESSENTIAL HYPERTENSION 01/03/2020 TARTAGLIONE, HERMES W 530 .81 ESOPHAGEAL REFLUX 01/03/2020 TARTAGLIONE, HERMES W 564 .00 CONSTIPATION, UNSPECIFIED 01/03/2020 TARTAGLIONE, HERMES W 780 .52 INSOMNIA, UNSPECIFIED 01/03/2020 TARTAGLIONE, HERMES W E03 .9 HYPOTHYROIDISM, UNSPECIFIED 01/03/2020 TARTAGLIONE, HERMES W E11 .9 TYPE 2 DIABETES MELLITUS WITHOUT COMPLICATIONS 01/03/2020 TARTAGLIONE, HERMES W E87 .6 HYPOKALEMIA 01/03/2020 TARTAGLIONE, HERMES W F03 .90 UNSPECIFIED DEMENTIA WITHOUT BEHAVIORAL DISTURBANCE 01/03/2020 TARTAGLIONE, HERMES W 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 01/03/2020 TARTAGLIONE, HERMES W F41 .1 GENERALIZED ANXIETY DISORDER 01/03/2020 TARTAGLIONE, HERMES W G47 .00 INSOMNIA, UNSPECIFIED 01/03/2020 TARTAGLIONE, HERMES W I10 ESSENTIAL (PRIMARY) HYPERTENSION 01/03/2020 TARTAGLIONE, HERMES W K21 .9 GASTRO-ESOPHAGEAL REFLUX DISEASE WITHOUT ESOPHAGITIS 01/03/2020 TARTAGLIONE, HERMES W K59 .00 CONSTIPATION, UNSPECIFIED 01/03/2020 TARTAGLIONE, HERMES W R45.851 SUICIDAL IDEATIONS 01/03/2020 TARTAGLIONE, HERMES W V62 .84 SUICIDAL IDEATION 02/04/2020 LETICIA SIMMONS, JOANNA Gordon Ot G56.02 CARPAL TUNNEL SYNDROME, LEFT UPPER LIMB 02/04/2020 LETICIA SIMMONS, JOANNA Gordon Ot Z01.818 ENCOUNTER FOR OTHER PREPROCEDURAL EXAMIN 02/04/2020 JOANNA KELLY MD Ot Z11.2 ENCOUNTER FOR SCREENING FOR OTHER BACTER 02/04/2020 GIOVANNI SIMMONS, JOANNA Gordon Ot R13.14 DYSPHAGIA, PHARYNGOESOPHAGEAL PHASE 02/04/2020 JOANNA DAVILA MD Ot R13.19 OTHER DYSPHAGIA 02/04/2020 LILIANA SIMMONS, HERMES Saucedo Ot E03.9 HYPOTHYROIDISM, UNSPECIFIED 02/04/2020 LILIANA SIMMONS, HERMES Saucedo Ot E11.9 TYPE 2 DIABETES MELLITUS WITHOUT COMPLIC 02/04/2020 LILIANA SIMMONS, HERMSE Saucedo Ot F03.90 UNSPECIFIED DEMENTIA WITHOUT BEHAVIORAL 02/04/2020 LILIANA SIMMONS, HERMES Saucedo Ot F41.9 ANXIETY DISORDER, UNSPECIFIED 02/04/2020 HERMES FORD MD Ot I11.9 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 HEART 02/04/2020 LILIANA SIMMONS, HERMES Saucedo Ot I51.7 CARDIOMEGALY 02/04/2020 HERMES FORD MD Ot J44.1 CHRONIC OBSTRUCTIVE PULMONARY DISEASE W 02/04/2020 HERMES FORD MD Ot R07.9 CHEST PAIN, UNSPECIFIED 02/04/2020 HERMES FORD MD Ot R09.02 HYPOXEMIA 02/04/2020 HERMES FORD MD Ot Z86.73 PRSNL HX OF TIA (TIA), AND CEREB INFRC W 02/04/2020 LILIANA SIMMONS, HERMES Saucedo Ot Z87.01 PERSONAL HISTORY OF PNEUMONIA (RECURRENT 02/08/2020 LILIANA SIMMONS, HERMES Saucedo Ot E03.9 HYPOTHYROIDISM, UNSPECIFIED 02/08/2020 LILIANA SIMMONS, HERMES Saucedo Ot E11.9 TYPE 2 DIABETES MELLITUS WITHOUT COMPLIC 02/08/2020 LILIANA SIMMONS, HERMES Saucedo Ot F03.90 UNSPECIFIED DEMENTIA WITHOUT BEHAVIORAL 02/08/2020 HERMES FORD MD Ot F41.9 ANXIETY DISORDER, UNSPECIFIED 02/08/2020 HERMES FORD MD Ot I11.9 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 HEART 02/08/2020 HERMES FORD MD Ot I51.7 CARDIOMEGALY 02/08/2020 HERMES FORD MD, Ot J44.1 CHRONIC OBSTRUCTIVE PULMONARY DISEASE W 02/08/2020 HERMES FORD MD Ot R07.9 CHEST PAIN, UNSPECIFIED 02/08/2020 HERMES FORD MD Ot R09.02 HYPOXEMIA 02/08/2020 HERMES FORD MD Ot Z86.73 PRSNL HX OF TIA (TIA), AND CEREB INFRC W 02/08/2020 HERMES FORD MD, Ot Z87.01 PERSONAL HISTORY OF PNEUMONIA (RECURRENT 02/15/2020 HERMES FORD MD Ot E03.9 HYPOTHYROIDISM, UNSPECIFIED 02/15/2020 HERMES FORD MD Ot E11.9 TYPE 2 DIABETES MELLITUS WITHOUT COMPLIC 02/15/2020 HERMES FORD MD Ot F03.90 UNSPECIFIED DEMENTIA WITHOUT BEHAVIORAL 02/15/2020 HERMES FORD MD, Ot F41.9 ANXIETY DISORDER, UNSPECIFIED 02/15/2020 HERMES FORD MD, Ot I11.9 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 Results Test [...] NG NRG Complete blood count (CBC) with automate [...] REPORTED 06/01/19 17:05 NRG Bacterial sputum culture [id number] NRG Dirithromycin susceptibility test by dis k [...] OF GROWTH Isolated NRG Bacterial blood culture [id number] NR Blood lactic acid measurement (moles/vol ume) - [...] Status Pt. Type Provider Facility Loc./Unit Complaint [id number] 12/20/2019 15:01:00 01/03/2020 08:18 :00 DIS Inpatient HERMES MENDOZA [facility] [id number] 12/20/2019 14:54:51 Document Registration [id number] 02/04/2020 17:59:00 020 22:50:00 DIS Emergency HERMES FORD MD Via [facility] ER COUGH [id number] 08/01/2019 04:54:00 019 07:25:00 DIS Emergency HERMES FORD MD Via [facility] ER FALL [id number] 06/25/2019 00:45:00 019 13:25:00 DIS Inpatient SANDRA MANLEY DO Via [facility] 4TH ASPIRATION PNEUMONIA;SEPSIS;HYPOXIA RECENT CVA [id number] 05/31/2019 17:10:00 019 20:47:00 DIS Emergency LILIANA SIMMONS, HERMES T [facility] ER UNRESPONSIVE [id number] 02/06/2019 07:54:00 019 12:58:00 DIS Emergency REBECA SIMMONS, SALOME Dominik [facility] ER FALL [id number] 01/24/2019 15:53:00 019 23:59:59 CLS Preadmit SANDRA MANLEY DO Via [facility] RAD MAJOR DEPRESSIVE DISOR RAD [id number] 09/23/2016 11:29:00 23:59:59 CLS Outpatient JOANNA DAVILA MD Via [facility] RAD CHRONIC DYSPHAGIA, R13. 14, R13.19 [id number] 11/19/2015 07:11:00 015 11:05:00 DIS Outpatient JOANNA KELLY MD Via [facility] SDC LT.CARPEL TUNNEL SYNDR OME [id number] 11/12/2015 10:41:00 015 23:59:59 CLS Outpatient JOANNA KELLY MD Via [facility] PREOP LEFT CARPEL TUNNEL [id number] 08/06/2014 12:10:00 014 14:33:00 DIS Emergency BRIJESH IRVIN Via [facility] ER HIGH BP [id number] 04/22/2014 15:13:00 014 17:13:00 DIS Emergency ASHWINI BENITEZ DO a [facility] ER ELEVATED BLOOD PRESSURE [id number] 04/10/2014 11:50:00 014 15:15:00 DIS Inpatient SANDRA MANLEY DO Via [facility] CSD CP,HTN [id number] 03/18/2014 16:37:00 014 23:59:59 CLS Outpatient SANDRA MANLEY DO Via [facility] RAD PAIN IN DORSOL FOOT [id number] 04/19/2013 12:07:00 013 23:59:59 CLS Outpatient SANDRA MANLEY DO Via [facility] RAD OA [id number] 04/12/2013 13:54:00 013 23:59:59 CLS Outpatient SCARLET FITZPATRICK DO Via [facility] RAD LEG PAIN, CANT BEND LEG [id number] 11/12/2015 10:39:00 Document Registration [id number] 07/23/2012 15:58:00 Document Registration [id number] 05/06/2011 06:15:00 Document Registration [id number] 05/28/2010 10:27:00 Document Registration
--- NOTE | 2020-03-28 05:39 | ED Fall/Injury ---
General Chief Complaint: Trauma-Non Activation Stated Complaint: FALL Source: patient Exam Limitations: no limitations (CHARLENE ALCARAZ) History of Present Illness Date Seen by Provider: March 28, 2020 Time Seen by Provider: 05:26 Initial Comments Patient presents to ER by EMS from [facility] and she has a chief complaint that she had gotten up to go the bathroom and was wheeled back in her wheelchair was going to sit in her recliner but instead she incidentally slid out of the chair. She denies striking her head nor loss of consciousness. She says she's having some new pain in that left her up off the floor in her right hip. She has a history of right hip prostheses. She denies being on blood thinners. She denies shortness of breath chest pain cough fever chills nausea vomiting diarrhea or dysuria. (CHARLENE ALCARAZ) Allergies and Home Medications Allergies Coded Allergies: No Known Drug Allergies (Unverified , 07/23/12) Home Medications Acetaminophen 325 Mg Tablet, 650 MG PO Q6H PRN for FEVER, (Reported) USE FOR FEVER >99.5 Albuterol Sulfate 2.5 Mg/0.5 Ml Vial.neb, 2.5 MG INH Q6H PRN for SHORTNESS OF BREATH, (Reported) Atropine Sulfate 2 Ml Drops, 1-2 DROPS SL Q6H PRN for secretions Prescribed by: SHAHIDA DICKERSON on 06/28/19 1037 Cefdinir 300 Mg Capsule, 300 MG PO BID Prescribed by: HERMES NICOLE on 02/04/20 2131 Diazepam 5 Mg Tablet, 5 MG PO DAILY PRN for ANXIETY, (Reported) Diltiazem HCl 180 Mg Capsule.er, 180 MG PO DAILY, (Reported) Furosemide 40 Mg Tablet, 40 MG PO DAILY, (Reported) Guaifenesin 100 Mg/5 Ml Liquid, 10 ML PO Q6H PRN for COUGH, (Reported) Guaifenesin 1,200 Mg Tab.er.12h, 1,200 MG PO BID, (Reported) Levothyroxine Sodium 50 Mcg Tablet, 50 MCG PO DAILY, (Reported) Oxycodone HCl 5 Mg Tablet, 5 MG PO Q6H PRN for PAIN-SEVERE, (Reported) Patient Home Medication List Home Medication List Reviewed: Yes (CHARLENE ALCARAZ) Review of Systems Review of Systems Constitutional: No chills, No diaphoresis Eyes: Denies Blindness, Denies Blurred Vision Ears, Nose, Mouth, Throat: denies ear pain, denies ear discharge Respiratory: No cough, No short of breath Cardiovascular: No chest pain, No edema Gastrointestinal: No abdominal pain, No constipation, No diarrhea Genitourinary: No discharge, No dysuria Musculoskeletal: see HPI; No back pain; joint pain Skin: No pruritus, No rash Psychiatric/Neurological: Denies Headache, Denies Numbness (CHARLENE ALCARAZ) Past Cpwqipn-Ekukis-Mdotxf Hx Patient Social History Alcohol Use: Denies Use Recreational Drug Use: No Smoking Status: Never a Smoker 2nd Hand Smoke Exposure: No Recent Hopitalizations: No (CHARLENE ALCARAZ) Immunizations Up To Date Tetanus Booster (TDap): Unknown PED Vaccines UTD: Yes Date of Pneumonia Vaccine: Aug 28, 1999 Date of Influenza Vaccine: Aug 28, 2015 (CHARLENE ALCARAZ) Seasonal Allergies Seasonal Allergies: No (CHARLENE ALCARAZ) Past Medical History Surgeries: Yes Gallbladder, Hysterectomy, Joint Replacement, Oophorectomy, Orthopedic Respiratory: Yes Pneumonia, Sleep Apnea Cardiac: Yes (SINUS TACHYCARDIA; RBBB; SYNCOPAL EPISODE) Cardiomyopathy, Hypertension, Irregular Heartbeat, Syncope Neurological: Yes (ENCEPHALOPATHY) Dementia, Stroke [employer] History: Menopausal Genitourinary: No Gastrointestinal: Yes Gall Bladder Disease Musculoskeletal: Yes Arthritis, Chronic Back Pain Endocrine: Yes (INSULIN + PILLS) Diabetes, Insulin dep, Hypothyroidsim HEENT: Yes Dysphagia Cancer: No Psychosocial: Yes Anxiety Integumentary: Yes (MRSA) Blood Disorders: No (CHARLENE ALCARAZ) Family Medical History Patient reports no known family medical history. Physical Exam Vital Signs Vital Signs - First Documented 03/28/20 05:27 Temp 36.8 Pulse 86 Resp 16 B/P (MAP) 133/73 (93) Pulse Ox 93 O2 Delivery Room Air (BRITTNEE WILLARD DO) Vital Signs Capillary Refill : (CHARLENE ALCARAZ) Height, Weight, BMI Height: 5'5.00" Weight: 170lbs. 2.0oz. 77.824559gl; 32.00 BMI Method:Estimated General Appearance: WD/WN, no apparent distress HEENT: PERRL/EOMI, normal ENT inspection, TMs normal, pharynx normal Neck: full range of motion, supple, normal inspection Cardiovascular: normal peripheral pulses, regular rate, rhythm Respiratory: no respiratory distress, no accessory muscle use Peripheral Pulses: 2+ Radial Pulses (R), 2+ Radial Pulses (L) Gastrointestinal: normal bowel sounds, non tender, soft Pelvic: normal external exam, other (tenderness to direct palpation over the lateral proximal femoral head) Neurologic/Psychiatric: alert, normal mood/affect, oriented x 3 Skin: normal color, warm/dry (CHARLENE ALCARAZ) Grundy Coma Score Best Eye Response: (4) Open Spontaneously Best Verbal Response: (5) Oriented Best Motor Response: (6) Obeys Commands Grundy Total: 15 (CHARLENE ALCARAZ) Procedures/Interventions Date of ETT Placement: May 31, 2019 Time of ETT Placement: 1729 (CHARLENE ALCARAZ) Progress/Results/Core Measures Results/Orders Vital Signs/I&O 03/28/20 03/28/20 05:27 06:23 Temp 36.8 36.6 Pulse 86 84 Resp 16 16 B/P (MAP) 133/73 (93) 118/63 Pulse Ox 93 92 O2 Delivery Room Air Room Air (BRITTNEE WILLARD DO) Progress Progress Note : Time: 05:40 Progress Note Patient declined blood work. She says she doesn't want anything for pain. She just wants x-rays. (CHARLENE ALCARAZ) Diagnostic Imaging Diagonstic Imaging: Xray Plain Films/CT/US/NM/MRI: chest Reviewed: Reviewed by Me Diagonstic Imaging: Xray Plain Films/CT/US/NM/MRI: hip (right 2 to 3 views) Reviewed: Reviewed by Me (CHARELNE ALCARAZ) Diagonstic Imaging: Xray Comments No acute fracture or dislocation [facility] [place] NAME[facility] [id number] PT STATUS: REG ER : 1930 PHYSICIAN: CHARLENE ALCARAZ MD ADMIT DATE: 03/28/20/ER Signed Date of Exam:03/28/20 CHEST 1 VIEW, AP/PA ONLY CHEST 1 VIEW, AP/PA ONLY Indication: Trauma, fall Comparison: 02/04/2020 Findings: No focal airspace disease in the visualized lungs. Please note that the posterior lower lobes are poorly evaluated by portable radiography. No pleural effusion or pneumothorax. Stable cardiomegaly. Impression: 1. No acute cardiopulmonary process by portable radiography (BRITTNEE WILLARD DO) Transfer of Care Time: 06:00 Care transferred to: Dr. Willard (CHARLENE ALCARAZ) Departure Impression Primary Impression: Contusion of right hip region Additional Impressions: Fall from wheelchair Qualified Codes: W05.0XXA - Fall from non-moving wheelchair, initial encounter Fall involving wheelchair as cause of accidental injury at residential institution as place of occurrence Qualified Codes: W05.0XXA - Fall from non-moving wheelchair, initial encounter; Y92.10 - Unspecified residential institution as the place of occurrence of the external cause Disposition: 01 HOME, SELF-CARE Condition: Stable Departure-Patient Inst. Referrals: SANDRA MANLEY DO (PCP/Family) Primary Care Physician Patient Instructions: Hip Pointer, Contusion (DC) Add. Discharge Instructions: Follow-up with your primary care provider as needed Tylenol ibuprofen as needed for pain 4% topical lidocaine with menthol to affected area as directed on package All discharge instructions reviewed with patient and/or family. Voiced understanding. CHARLENE ALCARAZ March 28, 2020 05:39 BRITTNEE WILLARD DO March 28, 2020 06:14
--- NOTE | 2020-03-28 06:12 | NUR ---
[facility] called et. informed pt is ready to be discharged.
[2020-03-28 06:23] VITALS: BP 118/63
--- NOTE | 2020-03-28 06:41 | NUR ---
[facility] car driver did not bring pt's wheelchair. went back to get it for pt.
--- NOTE | 2020-03-28 06:48 | Diagnostic Imaging Report ---
CHEST 1 VIEW, AP/PA ONLY Indication: Trauma, fall Comparison: 02/04/2020 Findings: No focal airspace disease in the visualized lungs. Please note that the posterior lower lobes are poorly evaluated by portable radiography. No pleural effusion or pneumothorax. Stable cardiomegaly. Impression: 1. No acute cardiopulmonary process by portable radiography. Dictated by: Dictated on workstation # [id number]
--- NOTE | 2020-03-28 06:56 | Diagnostic Imaging Report ---
INDICATION: Right hip pain after fall. COMPARISON: None available. TECHNIQUE: 2 views of right hip were obtained. FINDINGS: There are surgical changes of cemented right total hip arthroplasty. No acute periprosthetic fracture. The prosthesis is good alignment. No features of prosthesis loosening. No geographic osteolysis around the acetabular cup. Extensive vascular calcifications are noted. IMPRESSION: 1. Right total hip arthroplasty without acute fracture. Dictated by: Dictated on workstation # [id number]
== END 2020-03-28 07:15 | disposition home or self-care (01) ==
LOC: EDUNIT# 05:24 → ER 05:26
DX: S70.01XA Contusion of right hip, initial encounter (principal); I10 Essential (primary) hypertension; E03.9 Hypothyroidism, unspecified; F41.9 Anxiety disorder, unspecified; R40.2142 Coma scale, eyes open, spontaneous, at arrival to emergency department; R40.2242 Coma scale, best verbal response, confused conversation, at arrival to emergency department; R40.2362 Coma scale, best motor response, obeys commands, at arrival to emergency department; Z86.73 Personal history of transient ischemic attack (TIA), and cerebral infarction without residual deficits; W05.0XXA Fall from non-moving wheelchair, initial encounter; Y92.129 Unspecified place in nursing home as the place of occurrence of the external cause
CPT/HCPCS: 71045; 73502